=== PATIENT | female | born 2000 | race Hispanic/Latino ===

== ENCOUNTER 2024-07-12 06:51 | Emergency (ER) | payer OTHER, SELFPAY ==
--- OUTSIDE RECORDS SUMMARY | 2024-07-12 07:03 | XMS REPORT | Continuity of Care Document ---
Author Name Unknown Address [address] [facility] [address] [place] [address] [facility] thconnect Address [address] [facility] [place] [address] Care Team Providers Care Train Director Name Role Phone Colt Troy MD Primary Care Physician [phone] MARIN SINGLETON Attending Clinician Unavailable Marin Singleton DNP Attending Clinician [phone] Doctor Unassigned, [place] Attending Clinician U MIRIAM Esquivel Attending Clinician Unavailable ALEX WILSON Attending Clinician Unavailable Colt Troy MD Attending Clinician [phone] Meredith Moya RN Attending Clinician UnavailCOLT Dhaliwal Attending Clinician Unavailable Aelx Rojas Attending Clinician [phone] Lab, Ang - Db Attending Clinician Unavailable Unknown, Attending Attending Clinician UnavailFranca Doyle MD Attending Clinician [phone] ELLIOTT KARIMI Attending Clinician Unavailable Elliott Szymanski Attending Clinician [phone] Doctor Unassigned, [place] Attending Clinician U Juana Alex Attending Clinician [phone] WILLY DUNN Attending Clinician Unavailable Willy Dunn MD Attending Clinician [phone], [facility] Attending Clinician Unavailable SHIKHA KWONG Attending Clinician UnavailSHIKHA Toro Attending Clinician Unavaila miguel Ultrasound, Ang-Mfm Attending Clinician Unavaila miguel Desouzavelis MD, Lainez Attending Clinician + ENRRIQUE PABON Attending Clinician Unav ailable TRUDY LESLIE Attending Clinician Unavailable DANA SHIELDS Attending Clinician Unavailjustine Leslie MD, Trudy Willis Attending Clinician [phone] Quintin Stanley MD Attending Clinician [phone] QUINTIN STANLEY Attending Clinician Unavailable Marina Washington MD Attending Clinician [phone] Pob, [facility] Main Attending Clinician Unavailjustine hi Ultrasound, Adc Mfm Attending Clinician UnavailChristelle Bruce MD Attending Clinician [phone] CHRISTELLE MONDRAGON Attending Clinician Unavailable CHRISTELLE MONDRAGON Attending Clinician Unavailable Melody Alcantara Attending Clinician UnavailMichele Rowland MD Attending Clinician [phone] MICHELE GREER Attending Clinician Unavailable COLT TROY Admitting Clinician Unavailable Vincent PANIAGUA, Colt Suggs Admitting Clinician [phone] SHIKHA KWONG Admitting Clinician UnavailQuintin Rodriguez MD Admitting Clinician [phone] QUINTIN STANLEY Admitting Clinician Unavailable Payers Payer Name Policy Type Policy Number Effective Date Expirati on Date Source [facility] STAR [id number] 2023 00:00:00 [facility] [id number] 2022 00:00:00 2023 00:00:00 [facility] [id number] 2016 00:00:00 Problems Condition Name Condition Details Condition Category Status Onset Date Resolution Date Last Treatment Date Treating Clinician Comments Source Dizziness Dizziness Disease Active 03-29 00:00: 00 [facility] Axillary lymphadeni tis Axillary lymphadeni tis Disease Active 12-23 00:00: 00 [facility] with inconclusi ve viability, single or unspecifie d fetus with inconclusi ve viability, single or unspecifie d fetus Disease Active 2020-09 0 00:00: 00 [facility] Seasonal allergies Seasonal allergies Disease Active 2016-1 2-26 00:00: 00 [facility] related hip pain, antepartum related hip pain, antepartum Disease Resolve d 2022-0 7-12 00:00: 00 2023-10-30 00:00:00 2023-10-30 17:11:16 [facility] History of herpes genitalis History of herpes genitalis Disease Resolve d 2022-0 7-12 00:00: 00 2023-10-30 00:00:00 2023-10-30 17:11:18 [facility] History of delivery, currently History of delivery, currently Disease Resolve d 2022-0 5-17 00:00: 00 2023-10-30 00:00:00 2023-10-30 17:11:15 [facility] Liveborn , of simental , born in hospital by delivery Liveborn , of simental , born in hospital by delivery Disease Resolve d 2021-0 5-27 00:00: 00 2023-10-30 00:00:00 2023-10-30 17:11:13 [facility] 39 weeks gestation of 39 weeks gestation of Disease Resolve d 2021-0 3-27 00:00: 00 2023-10-30 00:00:00 2023-10-30 15:42:40 [facility] Alpha thalassemi a silent carrier Alpha thalassemi a silent carrier Disease Resolve d 1 2-09 00:00: 00 2023-10-30 00:00:00 2023-10-30 17:11:22 [facility] GBS bacteriuri a GBS bacteriuri a Disease Resolve d 1 2-09 00:00: 00 2023-10-30 00:00:00 2023-10-30 17:11:21 [facility] Supervisio n of other normal , antepartum Supervisio n of other normal , antepartum Disease Resolve d 1 0-17 00:00: 00 2023-10-30 00:00:00 2023-10-30 17:11:23 [facility] HSV infection HSV infection Disease Resolve d 2022-0 3-15 00:00: 00 2023-09-18 00:00:00 2023-09-18 15:51:29 [facility] 7 weeks gestation of 7 weeks gestation of Disease Resolve d 2022-0 5-17 00:00: 00 2023-07-22 00:00:00 2023-07-22 16:18:51 [facility] Vulvar itching Vulvar itching Disease Resolve d 2022-0 3-14 00:00: 00 2023-07-22 00:00:00 2023-07-22 16:18:59 [facility] Acute vaginitis Acute vaginitis Disease Resolve d 2022-0 3-14 00:00: 00 2023-07-22 00:00:00 2023-07-22 16:19:00 [facility] Acute blood loss anemia Acute blood loss anemia Disease Resolve d 2021-0 5-28 00:00: 00 2022-04-05 00:00:00 2022-04-05 13:31:42 [facility] Other immediate hemorrhage Other immediate hemorrhage Disease Resolve d 2021-0 5-28 00:00: 00 2022-04-05 00:00:00 2022-04-05 13:31:53 [facility] Normal labor Normal labor Disease Resolve d 2021-0 5-26 00:00: 00 2022-04-05 00:00:00 2022-04-05 13:31:37 [facility] Personal history of fall Personal history of fall Disease Resolve d 2021-0 4-23 00:00: 00 2022-04-05 00:00:00 2022-04-05 13:31:36 [facility] Nausea and vomiting in Nausea and vomiting in Disease Resolve d 2020-1 0-17 00:00: 00 2022-04-05 00:00:00 2022-04-05 13:31:46 [facility] Encounter to determine viability of , single or unspecifie d fetus Encounter to determine viability of , single or unspecifie d fetus Disease Resolve d 2020-1 0-17 00:00: 00 2021-10-29 00:00:00 2021-10-29 16:34:08 [facility] Allergies, Adverse Reactions, Alerts Allergy Name Allergy Type Status Severity Reaction(s) Onset Date Inactive Date Treating Clinician Comments Source NO KNOWN ALLERGIE S Drug Class Active [facility] Social History Social Habit Start Date Stop Date Quantity Comments Source ASSERTION 2023-01-07 00:00:00 [facility] Sexual orientation [facility] History SDOH Alcohol Comment [place] [facility] Alcoholic beverage intake 2024-05-17 00:00:00 2024-05-17 00:00:00 Ex-drinker (finding) [facility] Alcohol intake 2023-12-02 00:00:00 2023-12-02 00:00:00 Ex-drinker (finding) [facility] History of Social function 2023-09-08 00:00:00 2023-09-08 00:00:00 [facility] Exposure to SARS-CoV-2 (event) 2023-02-02 00:00:00 2023-02-12 11:17:00 Not sure [facility] Tobacco use and exposure 2022-12-10 00:00:00 2022-12-10 00:00:00 Smokeless tobacco non-user [facility] Education 2022-02-21 00:00:00 2022-02-21 00:00:00 16 [facility] History SDOH Alcohol Frequency 2020-09-07 00:00:00 2020-09-07 00:00:00 99 [facility] History SDOH Alcohol Std Drinks 2020-09-07 00:00:00 2020-09-07 00:00:00 99 [facility] History SDOH Alcohol Binge 2020-09-07 00:00:00 2020-09-07 00:00:00 3 [facility] Sex assigned at 1998 00:00:00 2000 00:00:00 [facility] Smoking Status Start Date Stop Date Source Never smoked tobacco [facility] Medications Ordered Medication Name Filled Medication Name Start Date Stop Date Current Medication? Ordering Clinician Indication Dosage Frequency Signature (SIG) Comments Components Source Nitrofurant oin&Nit. Macrocryst (MACROBID) 100 mg capsule 7-19 00:00: 00 04-22 04:59 :00 Yes [id number] 100mg Take 1 capsule by mouth in the morning and 1 capsule in the evening. Do all this for 5 days. [facility] meclizine 25 mg tablet 7- 00:00: 00 Yes [id number] 25mg Take 1 tablet by mouth 3 (three) times daily as needed for Dizziness. [facility] promethazin e-dextromet horphan 6.25-15 mg/5 mL syrup - 00:00: 00 01-03 04:59 :00 No [id number] 5mL Take 5 mL by mouth 4 (four) times daily for 10 days. [facility] predniSONE 20 mg tablet 12-23 00:00: 00 12-29 04:59 :00 No [id number] 40mg Take 2 tablets by mouth in the morning for 5 days. [facility] cefdinir 300 mg capsule 3- 00:00: 00 12-29 04:59 :00 No [id number] 600mg Take 2 capsules by mouth in the morning for 10 days. [facility] SERTraline (ZOLOFT) 50 mg tablet 3- 00:00: 00 Yes [id number] 50mg Take 1 tablet by mouth in the morning. [facility] norgestimat e-ethinyl estradioL 0.25-35 mg-mcg per tablet 2-15 00:00: 00 Yes [id number] 1{tbl} Take 1 tablet by mouth in the morning. [facility] SERTraline (ZOLOFT) 50 mg tablet 2-09 00:00: 00 12-01 00:00 :00 No [id number] 50mg Take 1 tablet by mouth in the morning. [facility] SERTraline (ZOLOFT) 25 mg tablet 2- 00:00: 00 11-07 05:59 :00 No [id number] 25mg Take 1 tablet by mouth in the morning for 7 days. [facility] vit no.124/iron /folic ( VITAMIN ORAL) 2022-09 07:27: 20 09-26 00:00 :00 No Take by mouth. [facility] acetaminoph en 325 mg tablet 2022-09 00:00: 00 11-13 00:00 :00 No [id number] 650mg Take 2 tablets by mouth every 6 (six) hours as needed for Pain (scale 1-3) or Pain (scale 4-6). [facility] vitamin w/FA tablet 2022-09 00:00: 00 11-13 00:00 :00 No [id number] 1{tbl} Take 1 tablet by mouth in the morning. [facility] docusate 100 mg capsule 2022-09 00:00: 00 11-13 00:00 :00 No [id number] 200mg Take 2 capsules by mouth once daily as needed for Constipati on. [facility] ferrous sulfate 325 mg (65 mg iron) tablet 2022-09 00:00: 00 11-13 00:00 :00 No [id number] 325mg Take 1 tablet by mouth in the morning and 1 tablet in the evening. [facility] ibuprofen 600 mg tablet 2022-09 00:00: 00 11-13 00:00 :00 No [id number] 600mg Take 1 tablet by mouth every 6 (six) hours as needed (Pain). Take with food or milk. [facility] HYDROcodone -acetaminop hen 5-325 mg tablet 2022-09 00:00: 00 10-04 05:59 :00 No [id number] 1{tbl} Take 1 tablet by mouth every 6 (six) hours as needed for Pain (scale 7-10) (Alternate with Ibuprofen) for up to 7 days. Indication s: acute pain [facility] gabapentin 300 mg capsule 2022-09 00:00: 00 10-02 05:59 :00 No [id number] 300mg Take 1 capsule by mouth in the morning and 1 capsule at noon and 1 capsule in the evening. Do all this for 5 days. [facility] ibuprofen (IBU) tablet 600 mg 2022-09 18:45: 00 Yes 600mg 600 mg, Oral, Q6H, First dose (after last modificati on) on Fri09/25/23 at 1245, Until Discontinu ed, Routine [facility] HYDROcodone -acetaminop hen (NORCO 5) 5-325 mg tablet 1 tablet 2022-09 06:00: 00 Yes 1{tbl} 1 tablet, Oral, Q6HPRN, Starting on Fri09/25/23 at 0000, Until Discontinu ed, Routine, Pain (scale 7-10), Alternate with Ibuprofen [facility] ketorolac (TORADOL) injection 30 mg 2022-09 06:00: 00 09-25 18:29 :05 No 30mg 30 mg, Slow IV Push, Q6H ABX, 4 doses, First dose on Fri09/25/23 at 0000, Last dose on Fri09/25/23 at 1800, Routine [facility] acetaminoph en (TYLENOL) tablet 650 mg 2022-09 02:00: 00 Yes 650mg 650 mg, Oral, Q6H ABX, First dose (after last modificati on) on Fri09/24/23 at 2000, Until Discontinu ed, Routine [facility] gabapentin (NEURONTIN) capsule 300 mg 2022-09 20:00: 00 Yes 300mg 300 mg, Oral, TID, First dose on Fri09/24/23 at 1400, Until Discontinu ed, Routine [facility] acetaminoph en ADULT (OFIRMEV) injection 1,000 mg 2022-09 20:00: 00 09-24 20:23 :00 No 1000mg 1,000 mg, IV Infusion, at 400 mL/hr Administer over 15 Minutes, ONCE, 1 dose, On Fri09/24/23 at 1400, Routine
Indicatio n: Strict NPO and unable to tolerate oral medication s [facility] lactated ringers IV infusion 1,000 mL 2022-09 17:30: 00 09-24 18:30 :00 No 1000mL at 125 mL/hr, 1,000 mL, IV Infusion, ONCE, 1 dose, On Fri09/24/23 at 1130, Routine [facility] rho(D) immune globulin (RHOGAM) syringe 300 mcg 2022-09 17:15: 16 Yes 300ug 300 mcg, Intramuscu lar, ONCE, For 1 dose, Conditiona l, Routine [facility] HYDROcodone -acetaminop hen (NORCO 5) 5-325 mg tablet 1 tablet 2022-09 17:15: 11 Yes 1{tbl} 1 tablet, Oral, Q6HPRN, Starting on Fri09/24/23 at 1115, Until Discontinu ed, Routine, Pain (scale 4-6), Alternate with Ibuprofen [facility] diphenhydrA MINE (BENADRYL) injection 25 mg 2022-09 17:15: 11 Yes 25mg 25 mg, Slow IV Push, Q6HPRN, Starting on Fri09/24/23 at 1115, Until Discontinu ed, Routine, Itching [facility] diphenhydrA MINE (BENADRYL) tablet 25 mg 2022-09 17:15: 11 Yes 25mg 25 mg, Oral, Q6HPRN, Starting on Fri09/24/23 at 1115, Until Discontinu ed, Routine, Sleep, Itching [facility] ondansetron (ZOFRAN (PF)) injection 4 mg 2022-09 17:15: 11 Yes 4mg 4 mg, Slow IV Push, Q8HPRN, Starting on Fri09/24/23 at 1115, Until Discontinu ed, Routine, Nausea and Vomiting (N/V) [facility] bisacodyL (DULCOLAX) suppository 10 mg 2022-09 17:15: 11 Yes 10mg 10 mg, Rectal, QDAILYPRN, Starting on Fri09/24/23 at 1115, Until Discontinu ed, Routine, Constipati on [facility] simethicone (GAS RELIEF (SIMETHICON E)) chewable tablet 160 mg 2022-09 17:15: 11 Yes 160mg 160 mg, Oral, PC+HSPRN, Starting on Fri09/24/23 at 1115, Until Discontinu ed, Routine, Gas [facility] docusate (COLACE) capsule 200 mg 2022-09 17:15: 11 Yes 200mg 200 mg, Oral, QDAILYPRN, Starting on Fri09/24/23 at 1115, Until Discontinu ed, Routine, Constipati on [facility] magnesium hydroxide (MILK OF MAGNESIA) 400 mg/5 mL suspension 30 mL 2022-09 17:15: 11 Yes 30mL 30 mL, Oral, QDAILYPRN, Starting on Fri09/24/23 at 1115, Until Discontinu ed, Routine, Constipati on [facility] lactated ringers IV infusion 1,000 mL 2022-09 17:15: 10 Yes 1000mL at 125 mL/hr, 1,000 mL, IV Infusion, PRN, 1 dose, Starting on Fri09/24/23 at 1115, Until Discontinu ed, Routine [facility] sodium chloride 0.9 % irrigation solution 2022-09 15:01: 00 Yes PRN, Starting on Fri09/24/23 at 0901, Until Discontinu ed, Intra-op [facility] mupirocin (BACTROBAN OINT) 2 % skin ointment 2022-09 15:01: 00 Yes Intra-op [facility] naloxone (NARCAN) injection 0.4 mg 2022-09 13:47: 32 09-26 13:46 :32 No .4mg 0.4 mg, Slow IV Push, PRN - SEE INSTRUCTIO NS, Starting on Fri09/24/23 at 0747, Until Fri09/26/23 at 0746, Routine, Sedation/R espiratory Depression , [facility] oxytocin (PITOCIN) 30 units in NS 500 mL IV infusion 2022-09 13:23: 18 09-24 17:15 :15 No 300mL/h 300 mL/hr, IV Infusion, SEE-INSTRU CTIONS, Starting on Fri09/24/[address] at 300 mL/hr for 1 hr then 150 mL/hr for 1 hr. For post delivery uterotonic .
[facility] sodium citrate-cit viki acid (BICITRA) 500-334 mg/5 mL solution 30 mL 2022-09 11:14: 28 09-24 12:51 :00 No 30mL 30 mL, Oral, PRE-PROCED URE ONCE, 1 dose, Starting on Fri09/24/23 at 0514, Until Discontinu ed, Routine, Surgery/Pr ocedure [facility] D5W-LR IV infusion 1,000 mL 2022-09 11:14: 28 09-24 17:15 :15 No 1000mL at 1-125 mL/hr, IV Infusion, TITRATE, Starting on Fri09/24/23 at 0514, Until Fri09/24/23 at 1115, Routine [facility] vit no.124/iron /folic ( VITAMIN ORAL) 2022-09 07:26: 27 Yes Take by mouth. [facility] acyclovir 400 mg tablet 2022-09 00:00: 00 09-24 05:59 :00 No [id number] 400mg Take 1 tablet by mouth in the morning and 1 tablet at noon and 1 tablet in the evening. Do all this for 22 days. [facility] hydrOXYzine 25 mg tablet 2022-09 00:00: 00 09-26 00:00 :00 No [id number] 25mg Take 1 tablet by mouth at bedtime as needed for Itching. [facility] vit no.124/iron /folic ( VITAMIN ORAL) 12 10:40: 23 Yes Take by mouth. [facility] vit no.124/iron /folic ( VITAMIN ORAL) 8-14 16:05: 50 Yes Take by mouth. [facility] ondansetron 8 mg disintegrat ing tablet 03-12 00:00: 00 09-26 00:00 :00 No [id number] 8mg Take 1 tablet by mouth every 8 (eight) hours as needed for Nausea and Vomiting (N/V). [facility] vit no.124/iron /folic ( VITAMIN ORAL) 02-12 11:45: 12 Yes Take by mouth. [facility] terconazole 80 mg vaginal suppository 12-10 00:00: 00 07-22 00:00 :00 No [id number] 80mg Insert 1 Suppositor y into vagina at bedtime. [facility] acyclovir 400 mg tablet 11-27 00:00: 00 09-18 00:00 :00 No TAKE 1 TABLET BY MOUTH EVERY 8 HOURS WITH MEALS [facility] norgestimat e-ethinyl estradioL 0.25-35 mg-mcg per tablet 04-05 00:00: 00 02-12 00:00 :00 No [id number] 1{tbl} Take 1 tablet by mouth daily. [facility] PNV 102-iron-fo late-dha (VITAFOL FE PLUS) 90 mg iron- 1 mg-200 mg Cap 02-27 00:00: 00 Yes [id number] 1{tbl} Take 1 tablet by mouth daily. [facility] PNV 102-iron-fo late-dha (VITAFOL FE PLUS) 90 mg iron- 1 mg-200 mg Cap 02-27 00:00: 00 07-22 00:00 :00 No [id number] 1{tbl} Take 1 tablet by mouth daily. [facility] Immunizations Ordered Immunization Name Filled Immunization Name Date Status Comments Source TDAP 2021-12-10 00:00:00 Completed [facility] TDAP 2021-12-10 00:00:00 Completed [facility] TDAP 2021-12-10 00:00:00 Completed [facility] TDAP 2021-12-10 00:00:00 Completed [facility] TDAP 2021-12-10 00:00:00 Completed [facility] TDAP 2021-12-10 00:00:00 Completed [facility] TDAP 2021-12-10 00:00:00 Completed [facility] TDAP 2021-12-10 00:00:00 Completed [facility] TDAP 2021-12-10 00:00:00 Completed [facility] TDAP 2021-12-10 00:00:00 Completed [facility] TDAP 2021-12-10 00:00:00 Completed [facility] TDAP 2021-12-10 00:00:00 Completed [facility] TDAP 2021-12-10 00:00:00 Completed [facility] TDAP 2021-12-10 00:00:00 Completed [facility] TDAP 2021-12-10 00:00:00 Completed [facility] TDAP 2021-12-10 00:00:00 Completed [facility] TDAP 2021-12-10 00:00:00 Completed [facility] TDAP 2021-12-10 00:00:00 Completed [facility] TDAP 2021-12-10 00:00:00 Completed [facility] TDAP 2021-12-10 00:00:00 Completed [facility] SARS-COV-2 COVID-19 MODERNA VACCINE 2021-08-29 00:00:00 Completed [facility] SARS-COV-2 COVID-19 MODERNA 12+ YRS VACCINE 2021-08-29 00:00:00 Completed [facility] SARS-COV-2 COVID-19 MODERNA 12+ YRS VACCINE 2021-08-29 00:00:00 Completed [facility] SARS-COV-2 COVID-19 MODERNA 12+ YRS VACCINE 2021-08-29 00:00:00 Completed [facility] SARS-COV-2 COVID-19 MODERNA 12+ YRS VACCINE 2021-08-29 00:00:00 Completed [facility] SARS-COV-2 COVID-19 MODERNA 12+ YRS VACCINE 2021-08-29 00:00:00 Completed [facility] SARS-COV-2 COVID-19 MODERNA 12+ YRS VACCINE 2021-08-29 00:00:00 Completed [facility] SARS-COV-2 COVID-19 MODERNA 12+ YRS VACCINE 2021-08-29 00:00:00 Completed [facility] SARS-COV-2 COVID-19 MODERNA 12+ YRS VACCINE 2021-08-29 00:00:00 Completed [facility] SARS-COV-2 COVID-19 MODERNA 12+ YRS VACCINE 2021-08-29 00:00:00 Completed [facility] SARS-COV-2 COVID-19 MODERNA 12+ YRS VACCINE 2021-08-29 00:00:00 Completed [facility] SARS-COV-2 COVID-19 MODERNA 12+ YRS VACCINE 2021-08-29 00:00:00 Completed [facility] SARS-COV-2 COVID-19 MODERNA 12+ YRS VACCINE 2021-08-29 00:00:00 Completed [facility] SARS-COV-2 COVID-19 MODERNA 12+ YRS VACCINE 2021-08-29 00:00:00 Completed [facility] SARS-COV-2 COVID-19 MODERNA 12+ YRS VACCINE 2021-08-29 00:00:00 Completed [facility] SARS-COV-2 COVID-19 MODERNA 12+ YRS VACCINE 2021-08-29 00:00:00 Completed [facility] SARS-COV-2 COVID-19 MODERNA 12+ YRS VACCINE 2021-08-29 00:00:00 Completed [facility] SARS-COV-2 COVID-19 MODERNA 12+ YRS VACCINE 2021-08-29 00:00:00 Completed [facility] SARS-COV-2 COVID-19 MODERNA 12+ YRS VACCINE 2021-08-29 00:00:00 Completed [facility] SARS-COV-2 COVID-19 MODERNA 12+ YRS VACCINE 2021-08-29 00:00:00 Completed [facility] SARS-COV-2 COVID-19 MODERNA VACCINE 2021-07-28 00:00:00 Completed [facility] SARS-COV-2 COVID-19 MODERNA 12+ YRS VACCINE 2021-07-28 00:00:00 Completed [facility] SARS-COV-2 COVID-19 MODERNA 12+ YRS VACCINE 2021-07-28 00:00:00 Completed [facility] SARS-COV-2 COVID-19 MODERNA 12+ YRS VACCINE 2021-07-28 00:00:00 Completed [facility] SARS-COV-2 COVID-19 MODERNA 12+ YRS VACCINE 2021-07-28 00:00:00 Completed [facility] SARS-COV-2 COVID-19 MODERNA 12+ YRS VACCINE 2021-07-28 00:00:00 Completed [facility] SARS-COV-2 COVID-19 MODERNA 12+ YRS VACCINE 2021-07-28 00:00:00 Completed [facility] SARS-COV-2 COVID-19 MODERNA 12+ YRS VACCINE 2021-07-28 00:00:00 Completed [facility] SARS-COV-2 COVID-19 MODERNA 12+ YRS VACCINE 2021-07-28 00:00:00 Completed [facility] SARS-COV-2 COVID-19 MODERNA 12+ YRS VACCINE 2021-07-28 00:00:00 Completed [facility] SARS-COV-2 COVID-19 MODERNA 12+ YRS VACCINE 2021-07-28 00:00:00 Completed [facility] SARS-COV-2 COVID-19 MODERNA 12+ YRS VACCINE 2021-07-28 00:00:00 Completed [facility] SARS-COV-2 COVID-19 MODERNA 12+ YRS VACCINE 2021-07-28 00:00:00 Completed [facility] SARS-COV-2 COVID-19 MODERNA 12+ YRS VACCINE 2021-07-28 00:00:00 Completed [facility] SARS-COV-2 COVID-19 MODERNA 12+ YRS VACCINE 2021-07-28 00:00:00 Completed [facility] SARS-COV-2 COVID-19 MODERNA 12+ YRS VACCINE 2021-07-28 00:00:00 Completed [facility] SARS-COV-2 COVID-19 MODERNA 12+ YRS VACCINE 2021-07-28 00:00:00 Completed [facility] SARS-COV-2 COVID-19 MODERNA 12+ YRS VACCINE 2021-07-28 00:00:00 Completed [facility] SARS-COV-2 COVID-19 MODERNA 12+ YRS VACCINE 2021-07-28 00:00:00 Completed [facility] SARS-COV-2 COVID-19 MODERNA 12+ YRS VACCINE 2021-07-28 00:00:00 Completed [facility] Influenza Virus Vaccine Quad IM 3+ YRS 2017-07-15 00:00:00 Completed [facility] Influenza Virus Vaccine Quad IM 3+ YRS 2017-07-15 00:00:00 Completed [facility] Influenza Virus Vaccine Quad IM 3+ YRS 2017-07-15 00:00:00 Completed [facility] Influenza Virus Vaccine Quad IM 3+ YRS 2017-07-15 00:00:00 Completed [facility] Influenza Virus Vaccine Quad IM 3+ YRS 2017-07-15 00:00:00 Completed [facility] Influenza Virus Vaccine Quad IM 3+ YRS 2017-07-15 00:00:00 Completed [facility] Influenza Virus Vaccine Quad IM 3+ YRS 2017-07-15 00:00:00 Completed [facility] Influenza Virus Vaccine Quad IM 3+ YRS 2017-07-15 00:00:00 Completed [facility] Influenza Virus Vaccine Quad IM 3+ YRS 2017-07-15 00:00:00 Completed [facility] Influenza Virus Vaccine Quad IM 3+ YRS 2017-07-15 00:00:00 Completed [facility] Influenza Virus Vaccine Quad IM 3+ YRS 2017-07-15 00:00:00 Completed [facility] Influenza Virus Vaccine Quad IM 3+ YRS 2017-07-15 00:00:00 Completed [facility] Influenza Virus Vaccine Quad IM 3+ YRS 2017-07-15 00:00:00 Completed [facility] Influenza Virus Vaccine Quad IM 3+ YRS 2017-07-15 00:00:00 Completed [facility] Influenza Virus Vaccine Quad IM 3+ YRS 2017-07-15 00:00:00 Completed [facility] Influenza Virus Vaccine Quad IM 3+ YRS 2017-07-15 00:00:00 Completed [facility] Influenza Virus Vaccine Quad IM 3+ YRS 2017-07-15 00:00:00 Completed [facility] Influenza Virus Vaccine Quad IM 3+ YRS 2017-07-15 00:00:00 Completed [facility] Influenza Virus Vaccine Quad IM 3+ YRS 2017-07-15 00:00:00 Completed [facility] Influenza Virus Vaccine Quad IM 3+ YRS 2017-07-15 00:00:00 Completed [facility] Meningococcal B, OMV 2016-10-21 00:00:00 Completed [facility] Meningococcal B, OMV 2016-10-21 00:00:00 Completed [facility] Meningococcal B, Recombinant 2016-10-21 00:00:00 Completed [facility] Meningococcal B, OMV 2016-10-21 00:00:00 Completed [facility] Meningococcal B, Recombinant 2016-10-21 00:00:00 Completed [facility] Meningococcal B, OMV 2016-10-21 00:00:00 Completed [facility] Meningococcal B, Recombinant 2016-10-21 00:00:00 Completed [facility] Meningococcal B, OMV 2016-10-21 00:00:00 Completed [facility] Meningococcal B, Recombinant 2016-10-21 00:00:00 Completed [facility] Meningococcal B, OMV 2016-10-21 00:00:00 Completed [facility] Meningococcal B, Recombinant 2016-10-21 00:00:00 Completed [facility] Meningococcal B, OMV 2016-10-21 00:00:00 Completed [facility] Meningococcal B, Recombinant 2016-10-21 00:00:00 Completed [facility] Meningococcal B, OMV 2016-10-21 00:00:00 Completed [facility] Meningococcal B, Recombinant 2016-10-21 00:00:00 Completed [facility] Meningococcal B, OMV 2016-10-21 00:00:00 Completed [facility] Meningococcal B, Recombinant 2016-10-21 00:00:00 Completed [facility] Meningococcal B, OMV 2016-10-21 00:00:00 Completed [facility] Meningococcal B, Recombinant 2016-10-21 00:00:00 Completed [facility] Meningococcal B, OMV 2016-10-21 00:00:00 Completed [facility] Meningococcal B, Recombinant 2016-10-21 00:00:00 Completed [facility] Meningococcal B, OMV 2016-10-21 00:00:00 Completed [facility] Meningococcal B, Recombinant 2016-10-21 00:00:00 Completed [facility] Meningococcal B, OMV 2016-10-21 00:00:00 Completed [facility] Meningococcal B, Recombinant 2016-10-21 00:00:00 Completed [facility] Meningococcal B, OMV 2016-10-21 00:00:00 Completed [facility] Meningococcal B, Recombinant 2016-10-21 00:00:00 Completed [facility] Meningococcal B, OMV 2016-10-21 00:00:00 Completed [facility] Meningococcal B, Recombinant 2016-10-21 00:00:00 Completed [facility] Meningococcal B, OMV 2016-10-21 00:00:00 Completed [facility] Meningococcal B, Recombinant 2016-10-21 00:00:00 Completed [facility] Meningococcal B, OMV 2016-10-21 00:00:00 Completed [facility] Meningococcal B, Recombinant 2016-10-21 00:00:00 Completed [facility] Meningococcal B, OMV 2016-10-21 00:00:00 Completed [facility] Meningococcal B, Recombinant 2016-10-21 00:00:00 Completed [facility] Meningococcal B, OMV 2016-10-21 00:00:00 Completed [facility] Meningococcal B, Recombinant 2016-10-21 00:00:00 Completed [facility] Meningococcal B, OMV 2016-10-21 00:00:00 Completed [facility] Meningococcal B, Recombinant 2016-10-21 00:00:00 Completed [facility] Influenza Virus Vaccine Quad IM 3+ YRS 2016-09-20 00:00:00 Completed [facility] Meningococcal B, OMV 2016-09-20 00:00:00 Completed [facility] Influenza Virus Vaccine Quad IM 3+ YRS 2016-09-20 00:00:00 Completed [facility] Meningococcal B, OMV 2016-09-20 00:00:00 Completed [facility] Meningococcal B, Recombinant 2016-09-20 00:00:00 Completed [facility] Influenza Virus Vaccine Quad IM 3+ YRS 2016-09-20 00:00:00 Completed [facility] Meningococcal B, OMV 2016-09-20 00:00:00 Completed [facility] Meningococcal B, Recombinant 2016-09-20 00:00:00 Completed [facility] Influenza Virus Vaccine Quad IM 3+ YRS 2016-09-20 00:00:00 Completed [facility] Meningococcal B, OMV 2016-09-20 00:00:00 Completed [facility] Meningococcal B, Recombinant 2016-09-20 00:00:00 Completed [facility] Influenza Virus Vaccine Quad IM 3+ YRS 2016-09-20 00:00:00 Completed [facility] Meningococcal B, OMV 2016-09-20 00:00:00 Completed [facility] Meningococcal B, Recombinant 2016-09-20 00:00:00 Completed [facility] Influenza Virus Vaccine Quad IM 3+ YRS 2016-09-20 00:00:00 Completed [facility] Meningococcal B, OMV 2016-09-20 00:00:00 Completed [facility] Meningococcal B, Recombinant 2016-09-20 00:00:00 Completed [facility] Influenza Virus Vaccine Quad IM 3+ YRS 2016-09-20 00:00:00 Completed [facility] Meningococcal B, OMV 2016-09-20 00:00:00 Completed [facility] Meningococcal B, Recombinant 2016-09-20 00:00:00 Completed [facility] Influenza Virus Vaccine Quad IM 3+ YRS 2016-09-20 00:00:00 Completed [facility] Meningococcal B, OMV 2016-09-20 00:00:00 Completed [facility] Meningococcal B, Recombinant 2016-09-20 00:00:00 Completed [facility] Influenza Virus Vaccine Quad IM 3+ YRS 2016-09-20 00:00:00 Completed [facility] Meningococcal B, OMV 2016-09-20 00:00:00 Completed [facility] Meningococcal B, Recombinant 2016-09-20 00:00:00 Completed [facility] Influenza Virus Vaccine Quad IM 3+ YRS 2016-09-20 00:00:00 Completed [facility] Meningococcal B, OMV 2016-09-20 00:00:00 Completed [facility] Meningococcal B, Recombinant 2016-09-20 00:00:00 Completed [facility] Influenza Virus Vaccine Quad IM 3+ YRS 2016-09-20 00:00:00 Completed [facility] Meningococcal B, OMV 2016-09-20 00:00:00 Completed [facility] Meningococcal B, Recombinant 2016-09-20 00:00:00 Completed [facility] Influenza Virus Vaccine Quad IM 3+ YRS 2016-09-20 00:00:00 Completed [facility] Meningococcal B, OMV 2016-09-20 00:00:00 Completed [facility] Meningococcal B, Recombinant 2016-09-20 00:00:00 Completed [facility] Influenza Virus Vaccine Quad IM 3+ YRS 2016-09-20 00:00:00 Completed [facility] Meningococcal B, OMV 2016-09-20 00:00:00 Completed [facility] Meningococcal B, Recombinant 2016-09-20 00:00:00 Completed [facility] Influenza Virus Vaccine Quad IM 3+ YRS 2016-09-20 00:00:00 Completed [facility] Meningococcal B, OMV 2016-09-20 00:00:00 Completed [facility] Meningococcal B, Recombinant 2016-09-20 00:00:00 Completed [facility] Influenza Virus Vaccine Quad IM 3+ YRS 2016-09-20 00:00:00 Completed [facility] Meningococcal B, OMV 2016-09-20 00:00:00 Completed [facility] Meningococcal B, Recombinant 2016-09-20 00:00:00 Completed [facility] Influenza Virus Vaccine Quad IM 3+ YRS 2016-09-20 00:00:00 Completed [facility] Meningococcal B, OMV 2016-09-20 00:00:00 Completed [facility] Meningococcal B, Recombinant 2016-09-20 00:00:00 Completed [facility] Influenza Virus Vaccine Quad IM 3+ YRS 2016-09-20 00:00:00 Completed [facility] Meningococcal B, OMV 2016-09-20 00:00:00 Completed [facility] Meningococcal B, Recombinant 2016-09-20 00:00:00 Completed [facility] Influenza Virus Vaccine Quad IM 3+ YRS 2016-09-20 00:00:00 Completed [facility] Meningococcal B, OMV 2016-09-20 00:00:00 Completed [facility] Meningococcal B, Recombinant 2016-09-20 00:00:00 Completed [facility] Influenza Virus Vaccine Quad IM 3+ YRS 2016-09-20 00:00:00 Completed [facility] Meningococcal B, OMV 2016-09-20 00:00:00 Completed [facility] Meningococcal B, Recombinant 2016-09-20 00:00:00 Completed [facility] Influenza Virus Vaccine Quad IM 3+ YRS 2016-09-20 00:00:00 Completed [facility] Meningococcal B, OMV 2016-09-20 00:00:00 Completed [facility] Meningococcal B, Recombinant 2016-09-20 00:00:00 Completed [facility] Influenza Virus Vaccine Quad IM 3+ YRS 2015-07-04 00:00:00 Completed [facility] Influenza Virus Vaccine Quad IM 3+ YRS 2015-07-04 00:00:00 Completed [facility] Influenza Virus Vaccine Quad IM 3+ YRS 2015-07-04 00:00:00 Completed [facility] Influenza Virus Vaccine Quad IM 3+ YRS 2015-07-04 00:00:00 Completed [facility] Influenza Virus Vaccine Quad IM 3+ YRS 2015-07-04 00:00:00 Completed [facility] Influenza Virus Vaccine Quad IM 3+ YRS 2015-07-04 00:00:00 Completed [facility] Influenza Virus Vaccine Quad IM 3+ YRS 2015-07-04 00:00:00 Completed [facility] Influenza Virus Vaccine Quad IM 3+ YRS 2015-07-04 00:00:00 Completed [facility] Influenza Virus Vaccine Quad IM 3+ YRS 2015-07-04 00:00:00 Completed [facility] Influenza Virus Vaccine Quad IM 3+ YRS 2015-07-04 00:00:00 Completed [facility] Influenza Virus Vaccine Quad IM 3+ YRS 2015-07-04 00:00:00 Completed [facility] Influenza Virus Vaccine Quad IM 3+ YRS 2015-07-04 00:00:00 Completed [facility] Influenza Virus Vaccine Quad IM 3+ YRS 2015-07-04 00:00:00 Completed [facility] Influenza Virus Vaccine Quad IM 3+ YRS 2015-07-04 00:00:00 Completed [facility] Influenza Virus Vaccine Quad IM 3+ YRS 2015-07-04 00:00:00 Completed [facility] Influenza Virus Vaccine Quad IM 3+ YRS 2015-07-04 00:00:00 Completed [facility] Influenza Virus Vaccine Quad IM 3+ YRS 2015-07-04 00:00:00 Completed [facility] Influenza Virus Vaccine Quad IM 3+ YRS 2015-07-04 00:00:00 Completed [facility] Influenza Virus Vaccine Quad IM 3+ YRS 2015-07-04 00:00:00 Completed [facility] Influenza Virus Vaccine Quad IM 3+ YRS 2015-07-04 00:00:00 Completed [facility] Influenza Virus Vaccine Quad .5 mL IM 6+ MO 2013-08-25 00:00:00 Completed [facility] Influenza Virus Vaccine Quad .5 mL IM 6+ MO 2013-08-25 00:00:00 Completed [facility] Influenza Virus Vaccine Quad .5 mL IM 6+ MO 2013-08-25 00:00:00 Completed [facility] Influenza Virus Vaccine Quad .5 mL IM 6+ MO 2013-08-25 00:00:00 Completed [facility] Influenza Virus Vaccine Quad .5 mL IM 6+ MO 2013-08-25 00:00:00 Completed [facility] Influenza Virus Vaccine Quad .5 mL IM 6+ MO 2013-08-25 00:00:00 Completed [facility] Influenza Virus Vaccine Quad .5 mL IM 6+ MO 2013-08-25 00:00:00 Completed [facility] Influenza Virus Vaccine Quad .5 mL IM 6+ MO 2013-08-25 00:00:00 Completed [facility] Influenza Virus Vaccine Quad .5 mL IM 6+ MO (FLUZONE/FLULAVAL/FL UARIX) 2013-08-25 00:00:00 Completed [facility] Influenza Virus Vaccine Quad .5 mL IM 6+ MO (FLUZONE/FLULAVAL/FL UARIX) 2013-08-25 00:00:00 Completed [facility] HEPATITIS A 2012-12-11 00:00:00 Completed [facility] HEPATITIS A 2012-12-11 00:00:00 Completed [facility] HEPATITIS A 2012-12-11 00:00:00 Completed [facility] HEPATITIS A 2012-12-11 00:00:00 Completed [facility] HEPATITIS A 2012-12-11 00:00:00 Completed [facility] HEPATITIS A 2012-12-11 00:00:00 Completed [facility] HEPATITIS A 2012-12-11 00:00:00 Completed [facility] HEPATITIS A 2012-12-11 00:00:00 Completed [facility] HEPATITIS A 2012-12-11 00:00:00 Completed [facility] HEPATITIS A 2012-12-11 00:00:00 Completed [facility] HEPATITIS A 2012-12-11 00:00:00 Completed [facility] HEPATITIS A 2012-12-11 00:00:00 Completed [facility] HEPATITIS A 2012-12-11 00:00:00 Completed [facility] HEPATITIS A 2012-12-11 00:00:00 Completed [facility] HEPATITIS A 2012-12-11 00:00:00 Completed [facility] HEPATITIS A 2012-12-11 00:00:00 Completed [facility] HEPATITIS A 2012-12-11 00:00:00 Completed [facility] HEPATITIS A 2012-12-11 00:00:00 Completed [facility] HEPATITIS A 2012-12-11 00:00:00 Completed [facility] Influenza Virus Vaccine - Whole 2012-08-19 00:00:00 Completed [facility] Influenza Virus Vaccine - Whole 2012-08-19 00:00:00 Completed [facility] Influenza Virus Vaccine - Whole 2012-08-19 00:00:00 Completed [facility] Influenza Virus Vaccine - Whole 2012-08-19 00:00:00 Completed [facility] Influenza Virus Vaccine - Whole 2012-08-19 00:00:00 Completed [facility] Influenza Virus Vaccine - Whole 2012-08-19 00:00:00 Completed [facility] Influenza Virus Vaccine - Whole 2012-08-19 00:00:00 Completed [facility] Influenza Virus Vaccine - Whole 2012-08-19 00:00:00 Completed [facility] Influenza Virus Vaccine - Whole 2012-08-19 00:00:00 Completed [facility] Influenza Virus Vaccine - Whole 2012-08-19 00:00:00 Completed [facility] HEPATITIS A 2012-05-22 00:00:00 Completed [facility] HEPATITIS A 2012-05-22 00:00:00 Completed [facility] HEPATITIS A 2012-05-22 00:00:00 Completed [facility] HEPATITIS A 2012-05-22 00:00:00 Completed [facility] HEPATITIS A 2012-05-22 00:00:00 Completed [facility] HEPATITIS A 2012-05-22 00:00:00 Completed [facility] HEPATITIS A 2012-05-22 00:00:00 Completed [facility] HEPATITIS A 2012-05-22 00:00:00 Completed [facility] HEPATITIS A 2012-05-22 00:00:00 Completed [facility] HEPATITIS A 2012-05-22 00:00:00 Completed [facility] HEPATITIS A 2012-05-22 00:00:00 Completed [facility] HEPATITIS A 2012-05-22 00:00:00 Completed [facility] HEPATITIS A 2012-05-22 00:00:00 Completed [facility] HEPATITIS A 2012-05-22 00:00:00 Completed [facility] HEPATITIS A 2012-05-22 00:00:00 Completed [facility] HEPATITIS A 2012-05-22 00:00:00 Completed [facility] HEPATITIS A 2012-05-22 00:00:00 Completed [facility] HEPATITIS A 2012-05-22 00:00:00 Completed [facility] HEPATITIS A 2012-05-22 00:00:00 Completed [facility] Influenza Virus Vaccine - Whole 2011-08-07 00:00:00 Completed [facility] Influenza Virus Vaccine - Whole 2011-08-07 00:00:00 Completed [facility] Influenza Virus Vaccine - Whole 2011-08-07 00:00:00 Completed [facility] Influenza Virus Vaccine - Whole 2011-08-07 00:00:00 Completed [facility] Influenza Virus Vaccine - Whole 2011-08-07 00:00:00 Completed [facility] Influenza Virus Vaccine - Whole 2011-08-07 00:00:00 Completed [facility] Influenza Virus Vaccine - Whole 2011-08-07 00:00:00 Completed [facility] Influenza Virus Vaccine - Whole 2011-08-07 00:00:00 Completed [facility] Influenza Virus Vaccine - Whole 2011-08-07 00:00:00 Completed [facility] Influenza Virus Vaccine - Whole 2011-08-07 00:00:00 Completed [facility] HPV 2011-05-14 00:00:00 Completed [facility] HPV 2011-05-14 00:00:00 Completed [facility] HPV 2011-05-14 00:00:00 Completed [facility] HPV 2011-05-14 00:00:00 Completed [facility] HPV 2011-05-14 00:00:00 Completed [facility] HPV 2011-05-14 00:00:00 Completed [facility] HPV 2011-05-14 00:00:00 Completed [facility] HPV 2011-05-14 00:00:00 Completed [facility] HPV 2011-05-14 00:00:00 Completed [facility] HPV 2011-05-14 00:00:00 Completed [facility] HPV 2011-05-14 00:00:00 Completed [facility] HPV 2011-05-14 00:00:00 Completed [facility] HPV 2011-05-14 00:00:00 Completed [facility] HPV 2011-05-14 00:00:00 Completed [facility] HPV 2011-05-14 00:00:00 Completed [facility] HPV 2011-05-14 00:00:00 Completed [facility] HPV 2011-05-14 00:00:00 Completed [facility] HPV 2011-05-14 00:00:00 Completed [facility] HPV 2011-05-14 00:00:00 Completed [facility] Influenza Virus Vaccine - Whole 2010-08-13 00:00:00 Completed [facility] Influenza Virus Vaccine - Whole 2010-08-13 00:00:00 Completed [facility] Influenza Virus Vaccine - Whole 2010-08-13 00:00:00 Completed [facility] Influenza Virus Vaccine - Whole 2010-08-13 00:00:00 Completed [facility] Influenza Virus Vaccine - Whole 2010-08-13 00:00:00 Completed [facility] Influenza Virus Vaccine - Whole 2010-08-13 00:00:00 Completed [facility] Influenza Virus Vaccine - Whole 2010-08-13 00:00:00 Completed [facility] Influenza Virus Vaccine - Whole 2010-08-13 00:00:00 Completed [facility] Influenza Virus Vaccine - Whole 2010-08-13 00:00:00 Completed [facility] Influenza Virus Vaccine - Whole 2010-08-13 00:00:00 Completed [facility] TDAP 2010-04-19 00:00:00 Completed [facility] Varicella (varivax)(chicken pox) 2010-04-19 00:00:00 Completed [facility] TDAP 2010-04-19 00:00:00 Completed [facility] Varicella (varivax)(chicken pox) 2010-04-19 00:00:00 Completed [facility] TDAP 2010-04-19 00:00:00 Completed [facility] Varicella (varivax)(chicken pox) 2010-04-19 00:00:00 Completed [facility] TDAP 2010-04-19 00:00:00 Completed [facility] Varicella (varivax)(chicken pox) 2010-04-19 00:00:00 Completed [facility] TDAP 2010-04-19 00:00:00 Completed [facility] Varicella (varivax)(chicken pox) 2010-04-19 00:00:00 Completed [facility] TDAP 2010-04-19 00:00:00 Completed [facility] Varicella (varivax)(chicken pox) 2010-04-19 00:00:00 Completed [facility] TDAP 2010-04-19 00:00:00 Completed [facility] Varicella (varivax)(chicken pox) 2010-04-19 00:00:00 Completed [facility] TDAP 2010-04-19 00:00:00 Completed [facility] Varicella (varivax)(chicken pox) 2010-04-19 00:00:00 Completed [facility] TDAP 2010-04-19 00:00:00 Completed [facility] Varicella (varivax)(chicken pox) 2010-04-19 00:00:00 Completed [facility] TDAP 2010-04-19 00:00:00 Completed [facility] Varicella (varivax)(chicken pox) 2010-04-19 00:00:00 Completed [facility] Meningococcal Polysaccharide (groups A, C, Y and W-135) conjugate vaccine (MCV4P) 2010-04-19 00:00:00 Completed [facility] TDAP 2010-04-19 00:00:00 Completed [facility] Varicella (varivax)(chicken pox) 2010-04-19 00:00:00 Completed [facility] Meningococcal Polysaccharide (groups A, C, Y and W-135) conjugate vaccine (MCV4P) 2010-04-19 00:00:00 Completed [facility] TDAP 2010-04-19 00:00:00 Completed [facility] Varicella (varivax)(chicken pox) 2010-04-19 00:00:00 Completed [facility] Meningococcal Polysaccharide (groups A, C, Y and W-135) conjugate vaccine (MCV4P) 2010-04-19 00:00:00 Completed [facility] TDAP 2010-04-19 00:00:00 Completed [facility] Varicella (varivax)(chicken pox) 2010-04-19 00:00:00 Completed [facility] Meningococcal Polysaccharide (groups A, C, Y and W-135) conjugate vaccine (MCV4P) 2010-04-19 00:00:00 Completed [facility] TDAP 2010-04-19 00:00:00 Completed [facility] Varicella (varivax)(chicken pox) 2010-04-19 00:00:00 Completed [facility] Meningococcal Polysaccharide (groups A, C, Y and W-135) conjugate vaccine (MCV4P) 2010-04-19 00:00:00 Completed [facility] TDAP 2010-04-19 00:00:00 Completed [facility] Varicella (varivax)(chicken pox) 2010-04-19 00:00:00 Completed [facility] Meningococcal Polysaccharide (groups A, C, Y and W-135) conjugate vaccine (MCV4P) 2010-04-19 00:00:00 Completed [facility] TDAP 2010-04-19 00:00:00 Completed [facility] Varicella (varivax)(chicken pox) 2010-04-19 00:00:00 Completed [facility] Meningococcal Polysaccharide (groups A, C, Y and W-135) conjugate vaccine (MCV4P) 2010-04-19 00:00:00 Completed [facility] TDAP 2010-04-19 00:00:00 Completed [facility] Varicella (varivax)(chicken pox) 2010-04-19 00:00:00 Completed [facility] Meningococcal Polysaccharide (groups A, C, Y and W-135) conjugate vaccine (MCV4P) 2010-04-19 00:00:00 Completed [facility] TDAP 2010-04-19 00:00:00 Completed [facility] Varicella (varivax)(chicken pox) 2010-04-19 00:00:00 Completed [facility] Meningococcal Polysaccharide (groups A, C, Y and W-135) conjugate vaccine (MCV4P) 2010-04-19 00:00:00 Completed [facility] TDAP 2010-04-19 00:00:00 Completed [facility] Varicella (varivax)(chicken pox) 2010-04-19 00:00:00 Completed [facility] Meningococcal Polysaccharide (groups A, C, Y and W-135) conjugate vaccine (MCV4P) 2010-04-19 00:00:00 Completed [facility] Meningococcal Polysaccharide (groups A, C, Y and W-135) conjugate vaccine (MCV4P) 2009-12-12 00:00:00 Completed [facility] TDAP 2009-12-12 00:00:00 Completed [facility] Meningococcal Polysaccharide (groups A, C, Y and W-135) conjugate vaccine (MCV4P) 2009-12-12 00:00:00 Completed [facility] TDAP 2009-12-12 00:00:00 Completed [facility] Meningococcal Polysaccharide (groups A, C, Y and W-135) conjugate vaccine (MCV4P) 2009-12-12 00:00:00 Completed [facility] TDAP 2009-12-12 00:00:00 Completed [facility] Meningococcal Polysaccharide (groups A, C, Y and W-135) conjugate vaccine (MCV4P) 2009-12-12 00:00:00 Completed [facility] TDAP 2009-12-12 00:00:00 Completed [facility] Meningococcal Polysaccharide (groups A, C, Y and W-135) conjugate vaccine (MCV4P) 2009-12-12 00:00:00 Completed [facility] TDAP 2009-12-12 00:00:00 Completed [facility] Meningococcal Polysaccharide (groups A, C, Y and W-135) conjugate vaccine (MCV4P) 2009-12-12 00:00:00 Completed [facility] TDAP 2009-12-12 00:00:00 Completed [facility] Meningococcal Polysaccharide (groups A, C, Y and W-135) conjugate vaccine (MCV4P) 2009-12-12 00:00:00 Completed [facility] TDAP 2009-12-12 00:00:00 Completed [facility] Meningococcal Polysaccharide (groups A, C, Y and W-135) conjugate vaccine (MCV4P) 2009-12-12 00:00:00 Completed [facility] TDAP 2009-12-12 00:00:00 Completed [facility] Meningococcal Polysaccharide (groups A, C, Y and W-135) conjugate vaccine (MCV4P) 2009-12-12 00:00:00 Completed [facility] TDAP 2009-12-12 00:00:00 Completed [facility] Meningococcal Polysaccharide (groups A, C, Y and W-135) conjugate vaccine (MCV4P) 2009-12-12 00:00:00 Completed [facility] TDAP 2009-12-12 00:00:00 Completed [facility] Meningococcal Polysaccharide (groups A, C, Y and W-135) conjugate vaccine (MCV4P) 2009-12-12 00:00:00 Completed [facility] TDAP 2009-12-12 00:00:00 Completed [facility] Meningococcal Polysaccharide (groups A, C, Y and W-135) conjugate vaccine (MCV4P) 2009-12-12 00:00:00 Completed [facility] TDAP 2009-12-12 00:00:00 Completed [facility] Meningococcal Polysaccharide (groups A, C, Y and W-135) conjugate vaccine (MCV4P) 2009-12-12 00:00:00 Completed [facility] TDAP 2009-12-12 00:00:00 Completed [facility] Meningococcal Polysaccharide (groups A, C, Y and W-135) conjugate vaccine (MCV4P) 2009-12-12 00:00:00 Completed [facility] TDAP 2009-12-12 00:00:00 Completed [facility] Meningococcal Polysaccharide (groups A, C, Y and W-135) conjugate vaccine (MCV4P) 2009-12-12 00:00:00 Completed [facility] TDAP 2009-12-12 00:00:00 Completed [facility] Meningococcal Polysaccharide (groups A, C, Y and W-135) conjugate vaccine (MCV4P) 2009-12-12 00:00:00 Completed [facility] TDAP 2009-12-12 00:00:00 Completed [facility] Meningococcal Polysaccharide (groups A, C, Y and W-135) conjugate vaccine (MCV4P) 2009-12-12 00:00:00 Completed [facility] TDAP 2009-12-12 00:00:00 Completed [facility] Meningococcal Polysaccharide (groups A, C, Y and W-135) conjugate vaccine (MCV4P) 2009-12-12 00:00:00 Completed [facility] TDAP 2009-12-12 00:00:00 Completed [facility] Meningococcal Polysaccharide (groups A, C, Y and W-135) conjugate vaccine (MCV4P) 2009-12-12 00:00:00 Completed [facility] TDAP 2009-12-12 00:00:00 Completed [facility] Varicella (varivax)(chicken pox) 2009-02-01 00:00:00 Completed [facility] Varicella (varivax)(chicken pox) 2009-02-01 00:00:00 Completed [facility] Varicella (varivax)(chicken pox) 2009-02-01 00:00:00 Completed [facility] Varicella (varivax)(chicken pox) 2009-02-01 00:00:00 Completed [facility] Varicella (varivax)(chicken pox) 2009-02-01 00:00:00 Completed [facility] Varicella (varivax)(chicken pox) 2009-02-01 00:00:00 Completed [facility] Varicella (varivax)(chicken pox) 2009-02-01 00:00:00 Completed [facility] Varicella (varivax)(chicken pox) 2009-02-01 00:00:00 Completed [facility] Varicella (varivax)(chicken pox) 2009-02-01 00:00:00 Completed [facility] Varicella (varivax)(chicken pox) 2009-02-01 00:00:00 Completed [facility] Varicella (varivax)(chicken pox) 2009-02-01 00:00:00 Completed [facility] Varicella (varivax)(chicken pox) 2009-02-01 00:00:00 Completed [facility] Varicella (varivax)(chicken pox) 2009-02-01 00:00:00 Completed [facility] Varicella (varivax)(chicken pox) 2009-02-01 00:00:00 Completed [facility] Varicella (varivax)(chicken pox) 2009-02-01 00:00:00 Completed [facility] Varicella (varivax)(chicken pox) 2009-02-01 00:00:00 Completed [facility] Varicella (varivax)(chicken pox) 2009-02-01 00:00:00 Completed [facility] Varicella (varivax)(chicken pox) 2009-02-01 00:00:00 Completed [facility] Varicella (varivax)(chicken pox) 2009-02-01 00:00:00 Completed [facility] Influenza Virus Vaccine - Whole 2008-07-27 00:00:00 Completed [facility] Influenza Virus Vaccine - Whole 2008-07-27 00:00:00 Completed [facility] Influenza Virus Vaccine - Whole 2008-07-27 00:00:00 Completed [facility] Influenza Virus Vaccine - Whole 2008-07-27 00:00:00 Completed [facility] Influenza Virus Vaccine - Whole 2008-07-27 00:00:00 Completed [facility] Influenza Virus Vaccine - Whole 2008-07-27 00:00:00 Completed [facility] Influenza Virus Vaccine - Whole 2008-07-27 00:00:00 Completed [facility] Influenza Virus Vaccine - Whole 2008-07-27 00:00:00 Completed [facility] Influenza Virus Vaccine - Whole 2008-07-27 00:00:00 Completed [facility] Influenza Virus Vaccine - Whole 2008-07-27 00:00:00 Completed [facility] Influenza Virus Vaccine - Whole 2007-08-19 00:00:00 Completed [facility] Influenza Virus Vaccine - Whole 2007-08-19 00:00:00 Completed [facility] Influenza Virus Vaccine - Whole 2007-08-19 00:00:00 Completed [facility] Influenza Virus Vaccine - Whole 2007-08-19 00:00:00 Completed [facility] Influenza Virus Vaccine - Whole 2007-08-19 00:00:00 Completed [facility] Influenza Virus Vaccine - Whole 2007-08-19 00:00:00 Completed [facility] Influenza Virus Vaccine - Whole 2007-08-19 00:00:00 Completed [facility] Influenza Virus Vaccine - Whole 2007-08-19 00:00:00 Completed [facility] Influenza Virus Vaccine - Whole 2007-08-19 00:00:00 Completed [facility] Influenza Virus Vaccine - Whole 2007-08-19 00:00:00 Completed [facility] DTAP 1999-02-06 00:00:00 Completed [facility] Hep B, Adol or Pedi Dosage 1999-02-06 00:00:00 Completed [facility] DTAP 1999-02-06 00:00:00 Completed [facility] Hep B, Adol or Pedi Dosage 1999-02-06 00:00:00 Completed [facility] DTAP 1999-02-06 00:00:00 Completed [facility] Hep B, Adol or Pedi Dosage 1999-02-06 00:00:00 Completed [facility] DTAP 1999-02-06 00:00:00 Completed [facility] Hep B, Adol or Pedi Dosage 1999-02-06 00:00:00 Completed [facility] DTAP 1999-02-06 00:00:00 Completed [facility] Hep B, Adol or Pedi Dosage 1999-02-06 00:00:00 Completed [facility] DTAP 1999-02-06 00:00:00 Completed [facility] Hep B, Adol or Pedi Dosage 1999-02-06 00:00:00 Completed [facility] DTAP 1999-02-06 00:00:00 Completed [facility] Hep B, Adol or Pedi Dosage 1999-02-06 00:00:00 Completed [facility] DTAP 1999-02-06 00:00:00 Completed [facility] Hep B, Adol or Pedi Dosage 1999-02-06 00:00:00 Completed [facility] DTAP 1999-02-06 00:00:00 Completed [facility] Hep B, Adol or Pedi Dosage 1999-02-06 00:00:00 Completed [facility] DTAP 1999-02-06 00:00:00 Completed [facility] Hep B, Adol or Pedi Dosage 1999-02-06 00:00:00 Completed [facility] DTaP, Unspecified Formulation 1999-02-06 00:00:00 Completed [facility] HIB 4 Dose Schedule 1999-02-06 00:00:00 Completed [facility] DTAP 1999-02-06 00:00:00 Completed [facility] Hep B, Adol or Pedi Dosage 1999-02-06 00:00:00 Completed [facility] DTaP, Unspecified Formulation 1999-02-06 00:00:00 Completed [facility] HIB 4 Dose Schedule 1999-02-06 00:00:00 Completed [facility] DTAP 1999-02-06 00:00:00 Completed [facility] Hep B, Adol or Pedi Dosage 1999-02-06 00:00:00 Completed [facility] DTaP, Unspecified Formulation 1999-02-06 00:00:00 Completed [facility] HIB 4 Dose Schedule 1999-02-06 00:00:00 Completed [facility] DTAP 1999-02-06 00:00:00 Completed [facility] Hep B, Adol or Pedi Dosage 1999-02-06 00:00:00 Completed [facility] DTaP, Unspecified Formulation 1999-02-06 00:00:00 Completed [facility] HIB 4 Dose Schedule 1999-02-06 00:00:00 Completed [facility] DTAP 1999-02-06 00:00:00 Completed [facility] Hep B, Adol or Pedi Dosage 1999-02-06 00:00:00 Completed [facility] DTaP, Unspecified Formulation 1999-02-06 00:00:00 Completed [facility] HIB 4 Dose Schedule 1999-02-06 00:00:00 Completed [facility] DTAP 1999-02-06 00:00:00 Completed [facility] Hep B, Adol or Pedi Dosage 1999-02-06 00:00:00 Completed [facility] DTaP, Unspecified Formulation 1999-02-06 00:00:00 Completed [facility] HIB 4 Dose Schedule 1999-02-06 00:00:00 Completed [facility] DTAP 1999-02-06 00:00:00 Completed [facility] Hep B, Adol or Pedi Dosage 1999-02-06 00:00:00 Completed [facility] DTaP, Unspecified Formulation 1999-02-06 00:00:00 Completed [facility] HIB 4 Dose Schedule 1999-02-06 00:00:00 Completed [facility] DTAP 1999-02-06 00:00:00 Completed [facility] Hep B, Adol or Pedi Dosage 1999-02-06 00:00:00 Completed [facility] DTaP, Unspecified Formulation 1999-02-06 00:00:00 Completed [facility] HIB 4 Dose Schedule 1999-02-06 00:00:00 Completed [facility] DTAP 1999-02-06 00:00:00 Completed [facility] Hep B, Adol or Pedi Dosage 1999-02-06 00:00:00 Completed [facility] DTaP, Unspecified Formulation 1999-02-06 00:00:00 Completed [facility] HIB 4 Dose Schedule 1999-02-06 00:00:00 Completed [facility] DTAP 1999-02-06 00:00:00 Completed [facility] Hep B, Adol or Pedi Dosage 1999-02-06 00:00:00 Completed [facility] DTaP, Unspecified Formulation 1999-02-06 00:00:00 Completed [facility] HIB 4 Dose Schedule 1999-02-06 00:00:00 Completed [facility] DTAP 1998 00:00:00 Completed [facility] Polio (IPV/OPV) 1998 00:00:00 Completed [facility] DTAP 1998 00:00:00 Completed [facility] Polio (IPV/OPV) 1998 00:00:00 Completed [facility] DTAP 1998 00:00:00 Completed [facility] Polio (IPV/OPV) 1998 00:00:00 Completed [facility] DTAP 1998 00:00:00 Completed [facility] Polio (IPV/OPV) 1998 00:00:00 Completed [facility] DTAP 1998 00:00:00 Completed [facility] Polio (IPV/OPV) 1998 00:00:00 Completed [facility] DTAP 1998 00:00:00 Completed [facility] Polio (IPV/OPV) 1998 00:00:00 Completed [facility] DTAP 1998 00:00:00 Completed [facility] Polio (IPV/OPV) 1998 00:00:00 Completed [facility] DTAP 1998 00:00:00 Completed [facility] Polio (IPV/OPV) 1998 00:00:00 Completed [facility] DTAP 1998 00:00:00 Completed [facility] Polio (IPV/OPV) 1998 00:00:00 Completed [facility] DTAP 1998 00:00:00 Completed [facility] Polio (IPV/OPV) 1998 00:00:00 Completed [facility] DTaP, Unspecified Formulation 1998 00:00:00 Completed [facility] HIB 4 Dose Schedule 1998 00:00:00 Completed [facility] IPV 1998 00:00:00 Completed [facility] DTAP 1998 00:00:00 Completed [facility] Polio (IPV/OPV) 1998 00:00:00 Completed [facility] DTaP, Unspecified Formulation 1998 00:00:00 Completed [facility] HIB 4 Dose Schedule 1998 00:00:00 Completed [facility] IPV 1998 00:00:00 Completed [facility] DTAP 1998 00:00:00 Completed [facility] Polio (IPV/OPV) 1998 00:00:00 Completed [facility] DTaP, Unspecified Formulation 1998 00:00:00 Completed [facility] HIB 4 Dose Schedule 1998 00:00:00 Completed [facility] IPV 1998 00:00:00 Completed [facility] DTAP 1998 00:00:00 Completed [facility] Polio (IPV/OPV) 1998 00:00:00 Completed [facility] DTaP, Unspecified Formulation 1998 00:00:00 Completed [facility] HIB 4 Dose Schedule 1998 00:00:00 Completed [facility] IPV 1998 00:00:00 Completed [facility] DTAP 1998 00:00:00 Completed [facility] Polio (IPV/OPV) 1998 00:00:00 Completed [facility] DTaP, Unspecified Formulation 1998 00:00:00 Completed [facility] HIB 4 Dose Schedule 1998 00:00:00 Completed [facility] IPV 1998 00:00:00 Completed [facility] DTAP 1998 00:00:00 Completed [facility] Polio (IPV/OPV) 1998 00:00:00 Completed [facility] DTaP, Unspecified Formulation 1998 00:00:00 Completed [facility] HIB 4 Dose Schedule 1998 00:00:00 Completed [facility] IPV 1998 00:00:00 Completed [facility] DTAP 1998 00:00:00 Completed [facility] Polio (IPV/OPV) 1998 00:00:00 Completed [facility] DTaP, Unspecified Formulation 1998 00:00:00 Completed [facility] HIB 4 Dose Schedule 1998 00:00:00 Completed [facility] IPV 1998 00:00:00 Completed [facility] DTAP 1998 00:00:00 Completed [facility] Polio (IPV/OPV) 1998 00:00:00 Completed [facility] DTaP, Unspecified Formulation 1998 00:00:00 Completed [facility] HIB 4 Dose Schedule 1998 00:00:00 Completed [facility] IPV 1998 00:00:00 Completed [facility] DTAP 1998 00:00:00 Completed [facility] Polio (IPV/OPV) 1998 00:00:00 Completed [facility] DTaP, Unspecified Formulation 1998 00:00:00 Completed [facility] HIB 4 Dose Schedule 1998 00:00:00 Completed [facility] IPV 1998 00:00:00 Completed [facility] DTAP 1998 00:00:00 Completed [facility] Polio (IPV/OPV) 1998 00:00:00 Completed [facility] DTaP, Unspecified Formulation 1998 00:00:00 Completed [facility] HIB 4 Dose Schedule 1998 00:00:00 Completed [facility] IPV 1998 00:00:00 Completed [facility] DTAP 1998 00:00:00 Completed [facility] Polio (IPV/OPV) 1998 00:00:00 Completed [facility] DTAP 1998 00:00:00 Completed [facility] Polio (IPV/OPV) 1998 00:00:00 Completed [facility] DTAP 1998 00:00:00 Completed [facility] Polio (IPV/OPV) 1998 00:00:00 Completed [facility] DTAP 1998 00:00:00 Completed [facility] Polio (IPV/OPV) 1998 00:00:00 Completed [facility] DTAP 1998 00:00:00 Completed [facility] Polio (IPV/OPV) 1998 00:00:00 Completed [facility] DTAP 1998 00:00:00 Completed [facility] Polio (IPV/OPV) 1998 00:00:00 Completed [facility] DTAP 1998 00:00:00 Completed [facility] Polio (IPV/OPV) 1998 00:00:00 Completed [facility] DTAP 1998 00:00:00 Completed [facility] Polio (IPV/OPV) 1998 00:00:00 Completed [facility] DTAP 1998 00:00:00 Completed [facility] Polio (IPV/OPV) 1998 00:00:00 Completed [facility] DTAP 1998 00:00:00 Completed [facility] Polio (IPV/OPV) 1998 00:00:00 Completed [facility] DTaP, Unspecified Formulation 1998 00:00:00 Completed [facility] HIB 4 Dose Schedule 1998 00:00:00 Completed [facility] IPV 1998 00:00:00 Completed [facility] DTAP 1998 00:00:00 Completed [facility] Polio (IPV/OPV) 1998 00:00:00 Completed [facility] DTaP, Unspecified Formulation 1998 00:00:00 Completed [facility] HIB 4 Dose Schedule 1998 00:00:00 Completed [facility] IPV 1998 00:00:00 Completed [facility] DTAP 1998 00:00:00 Completed [facility] Polio (IPV/OPV) 1998 00:00:00 Completed [facility] DTaP, Unspecified Formulation 1998 00:00:00 Completed [facility] HIB 4 Dose Schedule 1998 00:00:00 Completed [facility] IPV 1998 00:00:00 Completed [facility] DTAP 1998 00:00:00 Completed [facility] Polio (IPV/OPV) 1998 00:00:00 Completed [facility] DTaP, Unspecified Formulation 1998 00:00:00 Completed [facility] HIB 4 Dose Schedule 1998 00:00:00 Completed [facility] IPV 1998 00:00:00 Completed [facility] DTAP 1998 00:00:00 Completed [facility] Polio (IPV/OPV) 1998 00:00:00 Completed [facility] DTaP, Unspecified Formulation 1998 00:00:00 Completed [facility] HIB 4 Dose Schedule 1998 00:00:00 Completed [facility] IPV 1998 00:00:00 Completed [facility] DTAP 1998 00:00:00 Completed [facility] Polio (IPV/OPV) 1998 00:00:00 Completed [facility] DTaP, Unspecified Formulation 1998 00:00:00 Completed [facility] HIB 4 Dose Schedule 1998 00:00:00 Completed [facility] IPV 1998 00:00:00 Completed [facility] DTAP 1998 00:00:00 Completed [facility] Polio (IPV/OPV) 1998 00:00:00 Completed [facility] DTaP, Unspecified Formulation 1998 00:00:00 Completed [facility] HIB 4 Dose Schedule 1998 00:00:00 Completed [facility] IPV 1998 00:00:00 Completed [facility] DTAP 1998 00:00:00 Completed [facility] Polio (IPV/OPV) 1998 00:00:00 Completed [facility] DTaP, Unspecified Formulation 1998 00:00:00 Completed [facility] HIB 4 Dose Schedule 1998 00:00:00 Completed [facility] IPV 1998 00:00:00 Completed [facility] DTAP 1998 00:00:00 Completed [facility] Polio (IPV/OPV) 1998 00:00:00 Completed [facility] DTaP, Unspecified Formulation 1998 00:00:00 Completed [facility] HIB 4 Dose Schedule 1998 00:00:00 Completed [facility] IPV 1998 00:00:00 Completed [facility] DTAP 1998 00:00:00 Completed [facility] Polio (IPV/OPV) 1998 00:00:00 Completed [facility] DTaP, Unspecified Formulation 1998 00:00:00 Completed [facility] HIB 4 Dose Schedule 1998 00:00:00 Completed [facility] IPV 1998 00:00:00 Completed [facility] Hep B, Adol or Pedi Dosage 1998 00:00:00 Completed [facility] Hep B, Adol or Pedi Dosage 1998 00:00:00 Completed [facility] Hep B, Adol or Pedi Dosage 1998 00:00:00 Completed [facility] Hep B, Adol or Pedi Dosage 1998 00:00:00 Completed [facility] Hep B, Adol or Pedi Dosage 1998 00:00:00 Completed [facility] Hep B, Adol or Pedi Dosage 1998 00:00:00 Completed [facility] Hep B, Adol or Pedi Dosage 1998 00:00:00 Completed [facility] Hep B, Adol or Pedi Dosage 1998 00:00:00 Completed [facility] Hep B, Adol or Pedi Dosage 1998 00:00:00 Completed [facility] Hep B, Adol or Pedi Dosage 1998 00:00:00 Completed [facility] Hep B, Adol or Pedi Dosage 1998 00:00:00 Completed [facility] Hep B, Adol or Pedi Dosage 1998 00:00:00 Completed [facility] Hep B, Adol or Pedi Dosage 1998 00:00:00 Completed [facility] Hep B, Adol or Pedi Dosage 1998 00:00:00 Completed [facility] Hep B, Adol or Pedi Dosage 1998 00:00:00 Completed [facility] Hep B, Adol or Pedi Dosage 1998 00:00:00 Completed [facility] Hep B, Adol or Pedi Dosage 1998 00:00:00 Completed [facility] Hep B, Adol or Pedi Dosage 1998 00:00:00 Completed [facility] Hep B, Adol or Pedi Dosage 1998 00:00:00 Completed [facility] Hep B, Adol or Pedi Dosage 1998 00:00:00 Completed [facility] Hep B, Adol or Pedi Dosage 1998 00:00:00 Completed [facility] Hep B, Adol or Pedi Dosage 1998 00:00:00 Completed [facility] Hep B, Adol or Pedi Dosage 1998 00:00:00 Completed [facility] Hep B, Adol or Pedi Dosage 1998 00:00:00 Completed [facility] Hep B, Adol or Pedi Dosage 1998 00:00:00 Completed [facility] Hep B, Adol or Pedi Dosage 1998 00:00:00 Completed [facility] Hep B, Adol or Pedi Dosage 1998 00:00:00 Completed [facility] Hep B, Adol or Pedi Dosage 1998 00:00:00 Completed [facility] Hep B, Adol or Pedi Dosage 1998 00:00:00 Completed [facility] Hep B, Adol or Pedi Dosage 1998 00:00:00 Completed [facility] Hep B, Adol or Pedi Dosage 1998 00:00:00 Completed [facility] Hep B, Adol or Pedi Dosage 1998 00:00:00 Completed [facility] Hep B, Adol or Pedi Dosage 1998 00:00:00 Completed [facility] Hep B, Adol or Pedi Dosage 1998 00:00:00 Completed [facility] Hep B, Adol or Pedi Dosage 1998 00:00:00 Completed [facility] Hep B, Adol or Pedi Dosage 1998 00:00:00 Completed [facility] Hep B, Adol or Pedi Dosage 1998 00:00:00 Completed [facility] Hep B, Adol or Pedi Dosage 1998 00:00:00 Completed [facility] Meningococcal B, OMV Unknown Completed [facility] Influenza Virus Vaccine Quad IM 3+ YRS Unknown Completed [facility] SARS-COV-2 COVID-19 MODERNA 12+ YRS VACCINE Unknown Completed [facility] TDAP Unknown Completed [facility] DTAP Unknown Completed [facility] HEPATITIS A Unknown Completed [facility] Hep B, Adol or Pedi Dosage Unknown Completed [facility] Meningococcal Polysaccharide (groups A, C, Y and W-135) conjugate vaccine (MCV4P) Unknown Completed [facility] Polio (IPV/OPV) Unknown Completed [facility] Varicella (varivax)(chicken pox) Unknown Completed [facility] Meningococcal B, Recombinant Unknown Completed [facility] HPV Unknown Completed [facility] DTaP, Unspecified Formulation Unknown Completed [facility] Influenza Virus Vaccine - Whole Unknown Completed [facility] HIB 4 Dose Schedule Unknown Completed [facility] IPV Unknown Completed [facility] Influenza Virus Vaccine Quad IM, Preserv and ABX Free 6 MO-64 YRS (FLUCELVAX) Unknown Completed [facility] Meningococcal B, OMV Unknown Completed [facility] Influenza Virus Vaccine Quad IM 3+ YRS Unknown Completed [facility] SARS-COV-2 COVID-19 MODERNA 12+ YRS VACCINE Unknown Completed [facility] TDAP Unknown Completed [facility] DTAP Unknown Completed [facility] HEPATITIS A Unknown Completed [facility] Hep B, Adol or Pedi Dosage Unknown Completed [facility] Meningococcal Polysaccharide (groups A, C, Y and W-135) conjugate vaccine (MCV4P) Unknown Completed [facility] Polio (IPV/OPV) Unknown Completed [facility] Varicella (varivax)(chicken pox) Unknown Completed [facility] Meningococcal B, Recombinant Unknown Completed [facility] HPV Unknown Completed [facility] DTaP, Unspecified Formulation Unknown Completed [facility] Influenza Virus Vaccine - Whole Unknown Completed [facility] HIB 4 Dose Schedule Unknown Completed [facility] IPV Unknown Completed [facility] Influenza Virus Vaccine Quad IM, Preserv and ABX Free 6 MO-64 YRS (FLUCELVAX) Unknown Completed [facility] Influenza Virus Vaccine Quad IM 3+ YRS Unknown Completed [facility] Meningococcal B, OMV Unknown Completed [facility] SARS-COV-2 COVID-19 MODERNA 12+ YRS VACCINE Unknown Completed [facility] TDAP Unknown Completed [facility] DTAP Unknown Completed [facility] HEPATITIS A Unknown Completed [facility] Hep B, Adol or Pedi Dosage Unknown Completed [facility] Meningococcal Polysaccharide (groups A, C, Y and W-135) conjugate vaccine (MCV4P) Unknown Completed [facility] Polio (IPV/OPV) Unknown Completed [facility] Varicella (varivax)(chicken pox) Unknown Completed [facility] Meningococcal B, Recombinant Unknown Completed [facility] HPV Unknown Completed [facility] DTaP, Unspecified Formulation Unknown Completed [facility] Influenza Virus Vaccine - Whole Unknown Completed [facility] HIB 4 Dose Schedule Unknown Completed [facility] IPV Unknown Completed [facility] Influenza Virus Vaccine Quad IM, Preserv and ABX Free 6 MO-64 YRS (FLUCELVAX) Unknown Completed [facility] Influenza Virus Vaccine Quad IM 3+ YRS Unknown Completed [facility] Meningococcal B, OMV Unknown Completed [facility] SARS-COV-2 COVID-19 MODERNA 12+ YRS VACCINE Unknown Completed [facility] DTAP Unknown Completed [facility] HEPATITIS A Unknown Completed [facility] Hep B, Adol or Pedi Dosage Unknown Completed [facility] Meningococcal Polysaccharide (groups A, C, Y and W-135) conjugate vaccine (MCV4P) Unknown Completed [facility] Polio (IPV/OPV) Unknown Completed [facility] Varicella (varivax)(chicken pox) Unknown Completed [facility] Meningococcal B, Recombinant Unknown Completed [facility] HPV Unknown Completed [facility] DTaP, Unspecified Formulation Unknown Completed [facility] Influenza Virus Vaccine - Whole Unknown Completed [facility] HIB 4 Dose Schedule Unknown Completed [facility] IPV Unknown Completed [facility] TDAP Unknown Completed [facility] Influenza Virus Vaccine Quad IM, Preserv and ABX Free 6 MO-64 YRS (FLUCELVAX) Unknown Completed [facility] Influenza Virus Vaccine Quad IM 3+ YRS Unknown Completed [facility] Meningococcal B, OMV Unknown Completed [facility] SARS-COV-2 COVID-19 MODERNA 12+ YRS VACCINE Unknown Completed [facility] TDAP Unknown Completed [facility] DTAP Unknown Completed [facility] HEPATITIS A Unknown Completed [facility] Hep B, Adol or Pedi Dosage Unknown Completed [facility] Meningococcal Polysaccharide (groups A, C, Y and W-135) conjugate vaccine (MCV4P) Unknown Completed [facility] Polio (IPV/OPV) Unknown Completed [facility] Varicella (varivax)(chicken pox) Unknown Completed [facility] Meningococcal B, Recombinant Unknown Completed [facility] HPV Unknown Completed [facility] DTaP, Unspecified Formulation Unknown Completed [facility] Influenza Virus Vaccine - Whole Unknown Completed [facility] HIB 4 Dose Schedule Unknown Completed [facility] IPV Unknown Completed [facility] Influenza Virus Vaccine Quad IM, Preserv and ABX Free 6 MO-64 YRS (FLUCELVAX) Unknown Completed [facility] Influenza Virus Vaccine Quad IM 3+ YRS Unknown Completed [facility] Meningococcal B, OMV Unknown Completed [facility] SARS-COV-2 COVID-19 MODERNA 12+ YRS VACCINE Unknown Completed [facility] TDAP Unknown Completed [facility] DTAP Unknown Completed [facility] HEPATITIS A Unknown Completed [facility] Hep B, Adol or Pedi Dosage Unknown Completed [facility] Meningococcal Polysaccharide (groups A, C, Y and W-135) conjugate vaccine (MCV4P) Unknown Completed [facility] Polio (IPV/OPV) Unknown Completed [facility] Varicella (varivax)(chicken pox) Unknown Completed [facility] Meningococcal B, Recombinant Unknown Completed [facility] HPV Unknown Completed [facility] DTaP, Unspecified Formulation Unknown Completed [facility] Influenza Virus Vaccine - Whole Unknown Completed [facility] HIB 4 Dose Schedule Unknown Completed [facility] IPV Unknown Completed [facility] Influenza Virus Vaccine Quad IM, Preserv and ABX Free 6 MO-64 YRS (FLUCELVAX) Unknown Completed [facility] Influenza Virus Vaccine Quad IM 3+ YRS Unknown Completed [facility] Meningococcal B, OMV Unknown Completed [facility] SARS-COV-2 COVID-19 MODERNA 12+ YRS VACCINE Unknown Completed [facility] TDAP Unknown Completed [facility] DTAP Unknown Completed [facility] HEPATITIS A Unknown Completed [facility] Hep B, Adol or Pedi Dosage Unknown Completed [facility] Meningococcal Polysaccharide (groups A, C, Y and W-135) conjugate vaccine (MCV4P) Unknown Completed [facility] Polio (IPV/OPV) Unknown Completed [facility] Varicella (varivax)(chicken pox) Unknown Completed [facility] Meningococcal B, Recombinant Unknown Completed [facility] HPV Unknown Completed [facility] DTaP, Unspecified Formulation Unknown Completed [facility] Influenza Virus Vaccine - Whole Unknown Completed [facility] HIB 4 Dose Schedule Unknown Completed [facility] IPV Unknown Completed [facility] Influenza Virus Vaccine Quad IM, Preserv and ABX Free 6 MO-64 YRS (FLUCELVAX) Unknown Completed [facility] Influenza Virus Vaccine Quad IM 3+ YRS Unknown Completed [facility] Meningococcal B, OMV Unknown Completed [facility] SARS-COV-2 COVID-19 MODERNA 12+ YRS VACCINE Unknown Completed [facility] TDAP Unknown Completed [facility] DTAP Unknown Completed [facility] HEPATITIS A Unknown Completed [facility] Hep B, Adol or Pedi Dosage Unknown Completed [facility] Meningococcal Polysaccharide (groups A, C, Y and W-135) conjugate vaccine (MCV4P) Unknown Completed [facility] Polio (IPV/OPV) Unknown Completed [facility] Varicella (varivax)(chicken pox) Unknown Completed [facility] Meningococcal B, Recombinant Unknown Completed [facility] HPV Unknown Completed [facility] DTaP, Unspecified Formulation Unknown Completed [facility] Influenza Virus Vaccine - Whole Unknown Completed [facility] HIB 4 Dose Schedule Unknown Completed [facility] IPV Unknown Completed [facility] Influenza Virus Vaccine Quad IM, Preserv and ABX Free 6 MO-64 YRS (FLUCELVAX) Unknown Completed [facility] Influenza Virus Vaccine Quad IM 3+ YRS Unknown Completed [facility] Meningococcal B, OMV Unknown Completed [facility] SARS-COV-2 COVID-19 MODERNA 12+ YRS VACCINE Unknown Completed [facility] TDAP Unknown Completed [facility] DTAP Unknown Completed [facility] HEPATITIS A Unknown Completed [facility] Hep B, Adol or Pedi Dosage Unknown Completed [facility] Meningococcal Polysaccharide (groups A, C, Y and W-135) conjugate vaccine (MCV4P) Unknown Completed [facility] Polio (IPV/OPV) Unknown Completed [facility] Varicella (varivax)(chicken pox) Unknown Completed [facility] Meningococcal B, Recombinant Unknown Completed [facility] HPV Unknown Completed [facility] DTaP, Unspecified Formulation Unknown Completed [facility] Influenza Virus Vaccine - Whole Unknown Completed [facility] HIB 4 Dose Schedule Unknown Completed [facility] IPV Unknown Completed [facility] Influenza Virus Vaccine Quad IM, Preserv and ABX Free 6 MO-64 YRS (FLUCELVAX) Unknown Completed [facility] Influenza Virus Vaccine Quad IM 3+ YRS Unknown Completed [facility] Meningococcal B, OMV Unknown Completed [facility] SARS-COV-2 COVID-19 MODERNA 12+ YRS VACCINE Unknown Completed [facility] TDAP Unknown Completed [facility] DTAP Unknown Completed [facility] HEPATITIS A Unknown Completed [facility] Hep B, Adol or Pedi Dosage Unknown Completed [facility] Meningococcal Polysaccharide (groups A, C, Y and W-135) conjugate vaccine (MCV4P) Unknown Completed [facility] Polio (IPV/OPV) Unknown Completed [facility] Varicella (varivax)(chicken pox) Unknown Completed [facility] Meningococcal B, Recombinant Unknown Completed [facility] HPV Unknown Completed [facility] DTaP, Unspecified Formulation Unknown Completed [facility] Influenza Virus Vaccine - Whole Unknown Completed [facility] HIB 4 Dose Schedule Unknown Completed [facility] IPV Unknown Completed [facility] Influenza Virus Vaccine Quad IM, Preserv and ABX Free 6 MO-64 YRS (FLUCELVAX) Unknown Completed [facility] Influenza Virus Vaccine Quad IM 3+ YRS Unknown Completed [facility] Meningococcal B, OMV Unknown Completed [facility] SARS-COV-2 COVID-19 MODERNA 12+ YRS VACCINE Unknown Completed [facility] TDAP Unknown Completed [facility] DTAP Unknown Completed [facility] HEPATITIS A Unknown Completed [facility] Hep B, Adol or Pedi Dosage Unknown Completed [facility] Meningococcal Polysaccharide (groups A, C, Y and W-135) conjugate vaccine (MCV4P) Unknown Completed [facility] Polio (IPV/OPV) Unknown Completed [facility] Varicella (varivax)(chicken pox) Unknown Completed [facility] Meningococcal B, Recombinant Unknown Completed [facility] HPV Unknown Completed [facility] DTaP, Unspecified Formulation Unknown Completed [facility] Influenza Virus Vaccine - Whole Unknown Completed [facility] HIB 4 Dose Schedule Unknown Completed [facility] IPV Unknown Completed [facility] Influenza Virus Vaccine Quad IM, Preserv and ABX Free 6 MO-64 YRS (FLUCELVAX) Unknown Completed [facility] Influenza Virus Vaccine Quad IM 3+ YRS Unknown Completed [facility] Meningococcal B, OMV Unknown Completed [facility] SARS-COV-2 COVID-19 MODERNA 12+ YRS VACCINE Unknown Completed [facility] TDAP Unknown Completed [facility] DTAP Unknown Completed [facility] HEPATITIS A Unknown Completed [facility] Hep B, Adol or Pedi Dosage Unknown Completed [facility] Meningococcal Polysaccharide (groups A, C, Y and W-135) conjugate vaccine (MCV4P) Unknown Completed [facility] Polio (IPV/OPV) Unknown Completed [facility] Varicella (varivax)(chicken pox) Unknown Completed [facility] Meningococcal B, Recombinant Unknown Completed [facility] HPV Unknown Completed [facility] DTaP, Unspecified Formulation Unknown Completed [facility] Influenza Virus Vaccine - Whole Unknown Completed [facility] HIB 4 Dose Schedule Unknown Completed [facility] IPV Unknown Completed [facility] Influenza Virus Vaccine Quad IM, Preserv and ABX Free 6 MO-64 YRS (FLUCELVAX) Unknown Completed [facility] Influenza Virus Vaccine Quad IM 3+ YRS Unknown Completed [facility] Meningococcal B, OMV Unknown Completed [facility] SARS-COV-2 COVID-19 MODERNA 12+ YRS VACCINE Unknown Completed [facility] TDAP Unknown Completed [facility] DTAP Unknown Completed [facility] HEPATITIS A Unknown Completed [facility] Hep B, Adol or Pedi Dosage Unknown Completed [facility] Meningococcal Polysaccharide (groups A, C, Y and W-135) conjugate vaccine (MCV4P) Unknown Completed [facility] Polio (IPV/OPV) Unknown Completed [facility] Varicella (varivax)(chicken pox) Unknown Completed [facility] Meningococcal B, Recombinant Unknown Completed [facility] HPV Unknown Completed [facility] DTaP, Unspecified Formulation Unknown Completed [facility] Influenza Virus Vaccine - Whole Unknown Completed [facility] HIB 4 Dose Schedule Unknown Completed [facility] IPV Unknown Completed [facility] Influenza Virus Vaccine Quad IM, Preserv and ABX Free 6 MO-64 YRS (FLUCELVAX) Unknown Completed [facility] Influenza Virus Vaccine Quad IM 3+ YRS Unknown Completed [facility] Meningococcal B, OMV Unknown Completed [facility] SARS-COV-2 COVID-19 MODERNA 12+ YRS VACCINE Unknown Completed [facility] TDAP Unknown Completed [facility] DTAP Unknown Completed [facility] HEPATITIS A Unknown Completed [facility] Hep B, Adol or Pedi Dosage Unknown Completed [facility] Meningococcal Polysaccharide (groups A, C, Y and W-135) conjugate vaccine (MCV4P) Unknown Completed [facility] Polio (IPV/OPV) Unknown Completed [facility] Varicella (varivax)(chicken pox) Unknown Completed [facility] Meningococcal B, Recombinant Unknown Completed [facility] HPV Unknown Completed [facility] DTaP, Unspecified Formulation Unknown Completed [facility] Influenza Virus Vaccine - Whole Unknown Completed [facility] HIB 4 Dose Schedule Unknown Completed [facility] IPV Unknown Completed [facility] Influenza Virus Vaccine Quad IM, Preserv and ABX Free 6 MO-64 YRS (FLUCELVAX) Unknown Completed [facility] Influenza Virus Vaccine Quad IM 3+ YRS Unknown Completed [facility] Meningococcal B, OMV Unknown Completed [facility] SARS-COV-2 COVID-19 MODERNA 12+ YRS VACCINE Unknown Completed [facility] TDAP Unknown Completed [facility] DTAP Unknown Completed [facility] HEPATITIS A Unknown Completed [facility] Hep B, Adol or Pedi Dosage Unknown Completed [facility] Meningococcal Polysaccharide (groups A, C, Y and W-135) conjugate vaccine (MCV4P) Unknown Completed [facility] Polio (IPV/OPV) Unknown Completed [facility] Varicella (varivax)(chicken pox) Unknown Completed [facility] Meningococcal B, Recombinant Unknown Completed [facility] HPV Unknown Completed [facility] DTaP, Unspecified Formulation Unknown Completed [facility] Influenza Virus Vaccine - Whole Unknown Completed [facility] HIB 4 Dose Schedule Unknown Completed [facility] IPV Unknown Completed [facility] Influenza Virus Vaccine Quad IM, Preserv and ABX Free 6 MO-64 YRS (FLUCELVAX) Unknown Completed [facility] Influenza Virus Vaccine Quad IM 3+ YRS Unknown Completed [facility] Meningococcal B, OMV Unknown Completed [facility] SARS-COV-2 COVID-19 MODERNA 12+ YRS VACCINE Unknown Completed [facility] TDAP Unknown Completed [facility] DTAP Unknown Completed [facility] HEPATITIS A Unknown Completed [facility] Hep B, Adol or Pedi Dosage Unknown Completed [facility] Meningococcal Polysaccharide (groups A, C, Y and W-135) conjugate vaccine (MCV4P) Unknown Completed [facility] Polio (IPV/OPV) Unknown Completed [facility] Varicella (varivax)(chicken pox) Unknown Completed [facility] Meningococcal B, Recombinant Unknown Completed [facility] HPV Unknown Completed [facility] DTaP, Unspecified Formulation Unknown Completed [facility] Influenza Virus Vaccine - Whole Unknown Completed [facility] HIB 4 Dose Schedule Unknown Completed [facility] IPV Unknown Completed [facility] Influenza Virus Vaccine Quad IM, Preserv and ABX Free 6 MO-64 YRS (FLUCELVAX) Unknown Completed [facility] Influenza Virus Vaccine Quad IM 3+ YRS Unknown Completed [facility] Meningococcal B, OMV Unknown Completed [facility] SARS-COV-2 COVID-19 MODERNA 12+ YRS VACCINE Unknown Completed [facility] TDAP Unknown Completed [facility] DTAP Unknown Completed [facility] HEPATITIS A Unknown Completed [facility] Hep B, Adol or Pedi Dosage Unknown Completed [facility] Meningococcal Polysaccharide (groups A, C, Y and W-135) conjugate vaccine (MCV4P) Unknown Completed [facility] Polio (IPV/OPV) Unknown Completed [facility] Varicella (varivax)(chicken pox) Unknown Completed [facility] Meningococcal B, Recombinant Unknown Completed [facility] HPV Unknown Completed [facility] DTaP, Unspecified Formulation Unknown Completed [facility] Influenza Virus Vaccine - Whole Unknown Completed [facility] HIB 4 Dose Schedule Unknown Completed [facility] IPV Unknown Completed [facility] Influenza Virus Vaccine Quad IM, Preserv and ABX Free 6 MO-64 YRS (FLUCELVAX) Unknown Completed [facility] Influenza Virus Vaccine Quad IM 3+ YRS Unknown Completed [facility] Meningococcal B, OMV Unknown Completed [facility] SARS-COV-2 COVID-19 MODERNA 12+ YRS VACCINE Unknown Completed [facility] TDAP Unknown Completed [facility] DTAP Unknown Completed [facility] HEPATITIS A Unknown Completed [facility] Hep B, Adol or Pedi Dosage Unknown Completed [facility] Meningococcal Polysaccharide (groups A, C, Y and W-135) conjugate vaccine (MCV4P) Unknown Completed [facility] Polio (IPV/OPV) Unknown Completed [facility] Varicella (varivax)(chicken pox) Unknown Completed [facility] Meningococcal B, Recombinant Unknown Completed [facility] HPV Unknown Completed [facility] DTaP, Unspecified Formulation Unknown Completed [facility] Influenza Virus Vaccine - Whole Unknown Completed [facility] HIB 4 Dose Schedule Unknown Completed [facility] IPV Unknown Completed [facility] Influenza Virus Vaccine Quad IM, Preserv and ABX Free 6 MO-64 YRS (FLUCELVAX) Unknown Completed [facility] HPV Unknown Completed [facility] Influenza Virus Vaccine Quad IM, Preserv and ABX Free 6 MO-64 YRS (FLUCELVAX) Unknown Completed [facility] Influenza Virus Vaccine Quad IM 3+ YRS Unknown Completed [facility] Meningococcal B, OMV Unknown Completed [facility] SARS-COV-2 COVID-19 MODERNA 12+ YRS VACCINE Unknown Completed [facility] TDAP Unknown Completed [facility] DTAP Unknown Completed [facility] HEPATITIS A Unknown Completed [facility] Hep B, Adol or Pedi Dosage Unknown Completed [facility] Meningococcal Polysaccharide (groups A, C, Y and W-135) conjugate vaccine (MCV4P) Unknown Completed [facility] Polio (IPV/OPV) Unknown Completed [facility] Varicella (varivax)(chicken pox) Unknown Completed [facility] Meningococcal B, Recombinant Unknown Completed [facility] DTaP, Unspecified Formulation Unknown Completed [facility] Influenza Virus Vaccine - Whole Unknown Completed [facility] HIB 4 Dose Schedule Unknown Completed [facility] IPV Unknown Completed [facility] Influenza Virus Vaccine Quad IM 3+ YRS Unknown Completed [facility] Meningococcal B, OMV Unknown Completed [facility] SARS-COV-2 COVID-19 MODERNA 12+ YRS VACCINE Unknown Completed [facility] TDAP Unknown Completed [facility] DTAP Unknown Completed [facility] HEPATITIS A Unknown Completed [facility] Hep B, Adol or Pedi Dosage Unknown Completed [facility] Meningococcal Polysaccharide (groups A, C, Y and W-135) conjugate vaccine (MCV4P) Unknown Completed [facility] Polio (IPV/OPV) Unknown Completed [facility] Varicella (varivax)(chicken pox) Unknown Completed [facility] Meningococcal B, Recombinant Unknown Completed [facility] HPV Unknown Completed [facility] DTaP, Unspecified Formulation Unknown Completed [facility] Influenza Virus Vaccine - Whole Unknown Completed [facility] HIB 4 Dose Schedule Unknown Completed [facility] IPV Unknown Completed [facility] Influenza Virus Vaccine Quad IM, Preserv and ABX Free 6 MO-64 YRS (FLUCELVAX) Unknown Completed [facility] HPV Unknown Completed [facility] Influenza Virus Vaccine Quad IM, Preserv and ABX Free 6 MO-64 YRS (FLUCELVAX) Unknown Completed [facility] Influenza Virus Vaccine Quad IM 3+ YRS Unknown Completed [facility] Meningococcal B, OMV Unknown Completed [facility] SARS-COV-2 COVID-19 MODERNA 12+ YRS VACCINE Unknown Completed [facility] TDAP Unknown Completed [facility] DTAP Unknown Completed [facility] HEPATITIS A Unknown Completed [facility] Hep B, Adol or Pedi Dosage Unknown Completed [facility] Meningococcal Polysaccharide (groups A, C, Y and W-135) conjugate vaccine (MCV4P) Unknown Completed [facility] Polio (IPV/OPV) Unknown Completed [facility] Varicella (varivax)(chicken pox) Unknown Completed [facility] Meningococcal B, Recombinant Unknown Completed [facility] DTaP, Unspecified Formulation Unknown Completed [facility] Influenza Virus Vaccine - Whole Unknown Completed [facility] HIB 4 Dose Schedule Unknown Completed [facility] IPV Unknown Completed [facility] Influenza Virus Vaccine Quad IM 3+ YRS Unknown Completed [facility] Meningococcal B, OMV Unknown Completed [facility] SARS-COV-2 COVID-19 MODERNA 12+ YRS VACCINE Unknown Completed [facility] TDAP Unknown Completed [facility] DTAP Unknown Completed [facility] HEPATITIS A Unknown Completed [facility] Hep B, Adol or Pedi Dosage Unknown Completed [facility] Meningococcal Polysaccharide (groups A, C, Y and W-135) conjugate vaccine (MCV4P) Unknown Completed [facility] Polio (IPV/OPV) Unknown Completed [facility] Varicella (varivax)(chicken pox) Unknown Completed [facility] Meningococcal B, Recombinant Unknown Completed [facility] HPV Unknown Completed [facility] DTaP, Unspecified Formulation Unknown Completed [facility] Influenza Virus Vaccine - Whole Unknown Completed [facility] HIB 4 Dose Schedule Unknown Completed [facility] IPV Unknown Completed [facility] Influenza Virus Vaccine Quad IM, Preserv and ABX Free 6 MO-64 YRS (FLUCELVAX) Unknown Completed [facility] Influenza Virus Vaccine Quad IM 3+ YRS Unknown Completed [facility] Meningococcal B, OMV Unknown Completed [facility] SARS-COV-2 COVID-19 MODERNA 12+ YRS VACCINE Unknown Completed [facility] TDAP Unknown Completed [facility] DTAP Unknown Completed [facility] HEPATITIS A Unknown Completed [facility] Hep B, Adol or Pedi Dosage Unknown Completed [facility] Meningococcal Polysaccharide (groups A, C, Y and W-135) conjugate vaccine (MCV4P) Unknown Completed [facility] Polio (IPV/OPV) Unknown Completed [facility] Varicella (varivax)(chicken pox) Unknown Completed [facility] Meningococcal B, Recombinant Unknown Completed [facility] HPV Unknown Completed [facility] DTaP, Unspecified Formulation Unknown Completed [facility] Influenza Virus Vaccine - Whole Unknown Completed [facility] HIB 4 Dose Schedule Unknown Completed [facility] IPV Unknown Completed [facility] Influenza Virus Vaccine Quad IM, Preserv and ABX Free 6 MO-64 YRS (FLUCELVAX) Unknown Completed [facility] Meningococcal B, OMV Unknown Completed [facility] SARS-COV-2 COVID-19 MODERNA 12+ YRS VACCINE Unknown Completed [facility] DTAP Unknown Completed [facility] HEPATITIS A Unknown Completed [facility] Hep B, Adol or Pedi Dosage Unknown Completed [facility] Meningococcal Polysaccharide (groups A, C, Y and W-135) conjugate vaccine (MCV4P) Unknown Completed [facility] Polio (IPV/OPV) Unknown Completed [facility] Varicella (varivax)(chicken pox) Unknown Completed [facility] Meningococcal B, Recombinant Unknown Completed [facility] HPV Unknown Completed [facility] DTaP, Unspecified Formulation Unknown Completed [facility] Influenza Virus Vaccine Quad .5 mL IM 6+ MO (FLUZONE/FLULAVAL/FL UARIX) Unknown Completed [facility] Influenza Virus Vaccine - Whole Unknown Completed [facility] HIB 4 Dose Schedule Unknown Completed [facility] IPV Unknown Completed [facility] TDAP Unknown Completed [facility] Influenza Virus Vaccine Quad IM, Preserv and ABX Free 6 MO-64 YRS (FLUCELVAX) Unknown Completed [facility] Influenza Virus Vaccine Quad IM 3+ YRS Unknown Completed [facility] Meningococcal B, OMV Unknown Completed [facility] SARS-COV-2 COVID-19 MODERNA 12+ YRS VACCINE Unknown Completed [facility] TDAP Unknown Completed [facility] DTAP Unknown Completed [facility] HEPATITIS A Unknown Completed [facility] Hep B, Adol or Pedi Dosage Unknown Completed [facility] Meningococcal Polysaccharide (groups A, C, Y and W-135) conjugate vaccine (MCV4P) Unknown Completed [facility] Polio (IPV/OPV) Unknown Completed [facility] Varicella (varivax)(chicken pox) Unknown Completed [facility] Meningococcal B, Recombinant Unknown Completed [facility] HPV Unknown Completed [facility] DTaP, Unspecified Formulation Unknown Completed [facility] Influenza Virus Vaccine - Whole Unknown Completed [facility] HIB 4 Dose Schedule Unknown Completed [facility] IPV Unknown Completed [facility] Influenza Virus Vaccine Quad IM, Preserv and ABX Free 6 MO-64 YRS (FLUCELVAX) Unknown Completed [facility] Influenza Virus Vaccine Quad IM 3+ YRS Unknown Completed [facility] Meningococcal B, OMV Unknown Completed [facility] SARS-COV-2 COVID-19 MODERNA 12+ YRS VACCINE Unknown Completed [facility] TDAP Unknown Completed [facility] DTAP Unknown Completed [facility] HEPATITIS A Unknown Completed [facility] Hep B, Adol or Pedi Dosage Unknown Completed [facility] Meningococcal Polysaccharide (groups A, C, Y and W-135) conjugate vaccine (MCV4P) Unknown Completed [facility] Polio (IPV/OPV) Unknown Completed [facility] Varicella (varivax)(chicken pox) Unknown Completed [facility] Meningococcal B, Recombinant Unknown Completed [facility] HPV Unknown Completed [facility] DTaP, Unspecified Formulation Unknown Completed [facility] Influenza Virus Vaccine - Whole Unknown Completed [facility] HIB 4 Dose Schedule Unknown Completed [facility] IPV Unknown Completed [facility] Influenza Virus Vaccine Quad IM, Preserv and ABX Free 6 MO-64 YRS (FLUCELVAX) Unknown Completed [facility] Influenza Virus Vaccine Quad IM 3+ YRS Unknown Completed [facility] Meningococcal B, OMV Unknown Completed [facility] SARS-COV-2 COVID-19 MODERNA 12+ YRS VACCINE Unknown Completed [facility] TDAP Unknown Completed [facility] DTAP Unknown Completed [facility] HEPATITIS A Unknown Completed [facility] Hep B, Adol or Pedi Dosage Unknown Completed [facility] Meningococcal Polysaccharide (groups A, C, Y and W-135) conjugate vaccine (MCV4P) Unknown Completed [facility] Polio (IPV/OPV) Unknown Completed [facility] Varicella (varivax)(chicken pox) Unknown Completed [facility] Meningococcal B, Recombinant Unknown Completed [facility] HPV Unknown Completed [facility] DTaP, Unspecified Formulation Unknown Completed [facility] Influenza Virus Vaccine - Whole Unknown Completed [facility] HIB 4 Dose Schedule Unknown Completed [facility] IPV Unknown Completed [facility] Influenza Virus Vaccine Quad IM, Preserv and ABX Free 6 MO-64 YRS (FLUCELVAX) Unknown Completed [facility] Influenza Virus Vaccine Quad IM 3+ YRS Unknown Completed [facility] Meningococcal B, OMV Unknown Completed [facility] SARS-COV-2 COVID-19 MODERNA 12+ YRS VACCINE Unknown Completed [facility] TDAP Unknown Completed [facility] DTAP Unknown Completed [facility] HEPATITIS A Unknown Completed [facility] Hep B, Adol or Pedi Dosage Unknown Completed [facility] Meningococcal Polysaccharide (groups A, C, Y and W-135) conjugate vaccine (MCV4P) Unknown Completed [facility] Polio (IPV/OPV) Unknown Completed [facility] Varicella (varivax)(chicken pox) Unknown Completed [facility] Meningococcal B, Recombinant Unknown Completed [facility] HPV Unknown Completed [facility] DTaP, Unspecified Formulation Unknown Completed [facility] Influenza Virus Vaccine - Whole Unknown Completed [facility] HIB 4 Dose Schedule Unknown Completed [facility] IPV Unknown Completed [facility] Influenza Virus Vaccine Quad IM, Preserv and ABX Free 6 MO-64 YRS (FLUCELVAX) Unknown Completed [facility] Influenza Virus Vaccine Quad IM 3+ YRS Unknown Completed [facility] Meningococcal B, OMV Unknown Completed [facility] SARS-COV-2 COVID-19 MODERNA 12+ YRS VACCINE Unknown Completed [facility] TDAP Unknown Completed [facility] DTAP Unknown Completed [facility] HEPATITIS A Unknown Completed [facility] Hep B, Adol or Pedi Dosage Unknown Completed [facility] Meningococcal Polysaccharide (groups A, C, Y and W-135) conjugate vaccine (MCV4P) Unknown Completed [facility] Polio (IPV/OPV) Unknown Completed [facility] Varicella (varivax)(chicken pox) Unknown Completed [facility] Meningococcal B, Recombinant Unknown Completed [facility] HPV Unknown Completed [facility] DTaP, Unspecified Formulation Unknown Completed [facility] Influenza Virus Vaccine - Whole Unknown Completed [facility] HIB 4 Dose Schedule Unknown Completed [facility] IPV Unknown Completed [facility] Influenza Virus Vaccine Quad IM, Preserv and ABX Free 6 MO-64 YRS (FLUCELVAX) Unknown Completed [facility] Influenza Virus Vaccine Quad IM 3+ YRS Unknown Completed [facility] Meningococcal B, OMV Unknown Completed [facility] SARS-COV-2 COVID-19 MODERNA 12+ YRS VACCINE Unknown Completed [facility] TDAP Unknown Completed [facility] DTAP Unknown Completed [facility] HEPATITIS A Unknown Completed [facility] Hep B, Adol or Pedi Dosage Unknown Completed [facility] Meningococcal Polysaccharide (groups A, C, Y and W-135) conjugate vaccine (MCV4P) Unknown Completed [facility] Polio (IPV/OPV) Unknown Completed [facility] Varicella (varivax)(chicken pox) Unknown Completed [facility] Meningococcal B, Recombinant Unknown Completed [facility] HPV Unknown Completed [facility] DTaP, Unspecified Formulation Unknown Completed [facility] Influenza Virus Vaccine - Whole Unknown Completed [facility] HIB 4 Dose Schedule Unknown Completed [facility] IPV Unknown Completed [facility] Influenza Virus Vaccine Quad IM, Preserv and ABX Free 6 MO-64 YRS (FLUCELVAX) Unknown Completed [facility] Influenza Virus Vaccine Quad IM 3+ YRS Unknown Completed [facility] Meningococcal B, OMV Unknown Completed [facility] SARS-COV-2 COVID-19 MODERNA 12+ YRS VACCINE Unknown Completed [facility] TDAP Unknown Completed [facility] DTAP Unknown Completed [facility] HEPATITIS A Unknown Completed [facility] Hep B, Adol or Pedi Dosage Unknown Completed [facility] Meningococcal Polysaccharide (groups A, C, Y and W-135) conjugate vaccine (MCV4P) Unknown Completed [facility] Polio (IPV/OPV) Unknown Completed [facility] Varicella (varivax)(chicken pox) Unknown Completed [facility] Meningococcal B, Recombinant Unknown Completed [facility] HPV Unknown Completed [facility] DTaP, Unspecified Formulation Unknown Completed [facility] Influenza Virus Vaccine - Whole Unknown Completed [facility] HIB 4 Dose Schedule Unknown Completed [facility] IPV Unknown Completed [facility] Influenza Virus Vaccine Quad IM, Preserv and ABX Free 6 MO-64 YRS (FLUCELVAX) Unknown Completed [facility] Influenza Virus Vaccine Quad IM 3+ YRS Unknown Completed [facility] Meningococcal B, OMV Unknown Completed [facility] SARS-COV-2 COVID-19 MODERNA 12+ YRS VACCINE Unknown Completed [facility] TDAP Unknown Completed [facility] DTAP Unknown Completed [facility] HEPATITIS A Unknown Completed [facility] Hep B, Adol or Pedi Dosage Unknown Completed [facility] Meningococcal Polysaccharide (groups A, C, Y and W-135) conjugate vaccine (MCV4P) Unknown Completed [facility] Polio (IPV/OPV) Unknown Completed [facility] Varicella (varivax)(chicken pox) Unknown Completed [facility] Meningococcal B, Recombinant Unknown Completed [facility] HPV Unknown Completed [facility] DTaP, Unspecified Formulation Unknown Completed [facility] Influenza Virus Vaccine - Whole Unknown Completed [facility] HIB 4 Dose Schedule Unknown Completed [facility] IPV Unknown Completed [facility] Influenza Virus Vaccine Quad IM, Preserv and ABX Free 6 MO-64 YRS (FLUCELVAX) Unknown Completed [facility] Influenza Virus Vaccine Quad IM 3+ YRS Unknown Completed [facility] Meningococcal B, OMV Unknown Completed [facility] SARS-COV-2 COVID-19 MODERNA 12+ YRS VACCINE Unknown Completed [facility] TDAP Unknown Completed [facility] DTAP Unknown Completed [facility] HEPATITIS A Unknown Completed [facility] Hep B, Adol or Pedi Dosage Unknown Completed [facility] Meningococcal Polysaccharide (groups A, C, Y and W-135) conjugate vaccine (MCV4P) Unknown Completed [facility] Polio (IPV/OPV) Unknown Completed [facility] Varicella (varivax)(chicken pox) Unknown Completed [facility] Meningococcal B, Recombinant Unknown Completed [facility] HPV Unknown Completed [facility] DTaP, Unspecified Formulation Unknown Completed [facility] Influenza Virus Vaccine - Whole Unknown Completed [facility] HIB 4 Dose Schedule Unknown Completed [facility] IPV Unknown Completed [facility] Influenza Virus Vaccine Quad IM, Preserv and ABX Free 6 MO-64 YRS (FLUCELVAX) Unknown Completed [facility] Vital Signs Vital Name Observation Time Observation Value Comments S ource Systolic blood pressure 2024-05-14 21:08:00 124 mm[Hg] [facility] Diastolic blood pressure 2024-05-14 21:08:00 76 mm[Hg] [facility] Heart rate 2024-05-14 21:08:00 71 /[facility] Body temperature 2024-05-14 21:08:00 36.22 Manda [facility] Body weight 2024-05-14 21:08:00 60.601 kg [facility] BMI 2024-05-14 21:08:00 25.24 kg/m2 [facility] Systolic blood pressure 2024-04-13 14:20:00 112 mm[Hg] [facility] Diastolic blood pressure 2024-04-13 14:20:00 75 mm[Hg] [facility] Heart rate 2024-04-13 14:20:00 83 /min [facility] Body height 2024-04-13 14:20:00 154.9 cm [facility] Body weight 2024-04-13 14:20:00 58.968 kg [facility] BMI 2024-04-13 14:20:00 24.56 kg/m2 [facility] Systolic blood pressure 2024-03-29 21:11:00 120 mm[Hg] [facility] Diastolic blood pressure 2024-03-29 21:11:00 82 mm[Hg] [facility] Heart rate 2024-03-29 21:11:00 74 /min [facility] Body temperature 2024-03-29 21:11:00 36.72 Manda [facility] Respiratory rate 2024-03-29 21:11:00 18 /min [facility] Body height 2024-03-29 21:11:00 154.9 cm [facility] Body weight 2024-03-29 21:11:00 59.376 kg [facility] BMI 2024-03-29 21:11:00 24.73 kg/m2 [facility] Oxygen saturation in Arterial blood by Pulse oximetry 2024-03-29 21:11:00 98 /min [facility] Systolic blood pressure 2024-03-29 17:58:00 112 mm[Hg] [facility] Diastolic blood pressure 2024-03-29 17:58:00 85 mm[Hg] [facility] Heart rate 2024-03-29 17:58:00 88 /min [facility] Body temperature 2024-03-29 17:58:00 36.78 Manda [facility] Respiratory rate 2024-03-29 17:58:00 17 /min [facility] Body weight 2024-03-29 17:58:00 58.968 kg [facility] BMI 2024-03-29 17:58:00 24.56 kg/m2 [facility] Oxygen saturation in Arterial blood by Pulse oximetry 2024-03-29 17:58:00 98 /min [facility] Systolic blood pressure 2023-12-24 17:57:00 123 mm[Hg] [facility] Diastolic blood pressure 2023-12-24 17:57:00 85 mm[Hg] [facility] Heart rate 2023-12-24 17:57:00 92 /min [facility] Body temperature 2023-12-24 17:57:00 36.61 Manda [facility] Respiratory rate 2023-12-24 17:57:00 16 /min [facility] Body weight 2023-12-24 17:57:00 59.648 kg [facility] BMI 2023-12-24 17:57:00 24.85 kg/m2 [facility] Oxygen saturation in Arterial blood by Pulse oximetry 2023-12-24 17:57:00 100 /min [facility] Systolic blood pressure 2023-12-19 23:36:00 130 mm[Hg] [facility] Diastolic blood pressure 2023-12-19 23:36:00 83 mm[Hg] [facility] Heart rate 2023-12-19 23:36:00 74 /min [facility] Body temperature 2023-12-19 23:36:00 36.67 Manda [facility] Respiratory rate 2023-12-19 23:36:00 15 /min [facility] Body height 2023-12-19 23:36:00 154.9 cm [facility] Body weight 2023-12-19 23:36:00 60.464 kg [facility] BMI 2023-12-19 23:36:00 25.19 kg/m2 [facility] Oxygen saturation in Arterial blood by Pulse oximetry 2023-12-19 23:36:00 98 /min [facility] Systolic blood pressure 2023-12-02 19:19:00 122 mm[Hg] [facility] Diastolic blood pressure 2023-12-02 19:19:00 77 mm[Hg] [facility] Heart rate 2023-12-02 19:19:00 72 /min [facility] Body temperature 2023-12-02 19:19:00 36.22 Manda [facility] Body height 2023-12-02 19:19:00 154.9 cm [facility] Body weight 2023-12-02 19:19:00 60.963 kg [facility] BMI 2023-12-02 19:19:00 25.39 kg/m2 [facility] Systolic blood pressure 2023-11-13 21:42:00 125 mm[Hg] [facility] Diastolic blood pressure 2023-11-13 21:42:00 89 mm[Hg] [facility] Heart rate 2023-11-13 21:42:00 69 /min [facility] Body temperature 2023-11-13 21:42:00 36.33 Manda [facility] Body height 2023-11-13 21:42:00 154.9 cm [facility] Body weight 2023-11-13 21:42:00 61.054 kg [facility] BMI 2023-11-13 21:42:00 25.43 kg/m2 [facility] Systolic blood pressure 2023-10-30 21:51:00 124 mm[Hg] [facility] Diastolic blood pressure 2023-10-30 21:51:00 88 mm[Hg] [facility] Heart rate 2023-10-30 21:51:00 71 /min [facility] Body temperature 2023-10-30 21:51:00 36.44 Manda [facility] Respiratory rate 2023-10-30 21:51:00 18 /min [facility] Body height 2023-10-30 21:51:00 154.9 cm [facility] Body weight 2023-10-30 21:51:00 61.508 kg [facility] BMI 2023-10-30 21:51:00 25.62 kg/m2 [facility] Oxygen saturation in Arterial blood by Pulse oximetry 2023-10-30 21:51:00 98 /min [facility] Systolic blood pressure 2023-10-06 17:04:00 122 mm[Hg] [facility] Diastolic blood pressure 2023-10-06 17:04:00 76 mm[Hg] [facility] Heart rate 2023-10-06 17:03:00 73 /min [facility] Body temperature 2023-10-06 17:03:00 36.5 Manda [facility] Body height 2023-10-06 17:03:00 154.9 cm [facility] Body weight 2023-10-06 17:03:00 62.959 kg [facility] BMI 2023-10-06 17:03:00 26.23 kg/m2 [facility] Systolic blood pressure 2023-10-01 04:52:00 111 mm[Hg] [facility] Diastolic blood pressure 2023-10-01 04:52:00 83 mm[Hg] [facility] Heart rate 2023-10-01 04:52:00 79 /min [facility] Body temperature 2023-10-01 04:52:00 36.78 Manda [facility] Respiratory rate 2023-10-01 04:52:00 16 /min [facility] Body height 2023-10-01 04:52:00 154.9 cm [facility] Body weight 2023-10-01 04:52:00 65.273 kg [facility] BMI 2023-10-01 04:52:00 27.19 kg/m2 [facility] Oxygen saturation in Arterial blood by Pulse oximetry 2023-10-01 04:52:00 99 /min [facility] Systolic blood pressure 2023-09-26 13:00:00 116 mm[Hg] [facility] Diastolic blood pressure 2023-09-26 13:00:00 65 mm[Hg] [facility] Heart rate 2023-09-26 13:00:00 57 /min [facility] Body temperature 2023-09-26 13:00:00 36.83 Manda [facility] Respiratory rate 2023-09-26 13:00:00 16 /min [facility] Oxygen saturation in Arterial blood by Pulse oximetry 2023-09-26 07:40:00 100 /min [facility] Body height 2023-09-24 11:25:00 154.9 cm [facility] Body weight 2023-09-24 11:25:00 69.4 kg [facility] BMI 2023-09-24 11:25:00 28.91 kg/m2 [facility] Systolic blood pressure 2023-09-24 15:30:00 116 mm[Hg] [facility] Diastolic blood pressure 2023-09-24 15:30:00 64 mm[Hg] [facility] Heart rate 2023-09-24 15:30:00 71 /min [facility] Oxygen saturation in Arterial blood by Pulse oximetry 2023-09-24 15:30:00 100 /min [facility] Body temperature 2023-09-24 11:25:00 36.89 Manda [facility] Respiratory rate 2023-09-24 11:25:00 16 /min [facility] Body height 2023-09-24 11:25:00 154.9 cm [facility] Body weight 2023-09-24 11:25:00 69.4 kg [facility] BMI 2023-09-24 11:25:00 28.91 kg/m2 [facility] Systolic blood pressure 2023-09-18 21:50:00 112 mm[Hg] [facility] Diastolic blood pressure 2023-09-18 21:50:00 79 mm[Hg] [facility] Heart rate 2023-09-18 21:50:00 79 /min [facility] Body temperature 2023-09-18 21:50:00 36.44 Manda [facility] Body height 2023-09-18 21:50:00 160 cm [facility] Body weight 2023-09-18 21:50:00 68.947 kg [facility] BMI 2023-09-18 21:50:00 26.93 kg/m2 [facility] Systolic blood pressure 2023-09-08 15:49:00 112 mm[Hg] [facility] Diastolic blood pressure 2023-09-08 15:49:00 73 mm[Hg] [facility] Heart rate 2023-09-08 15:49:00 94 /min [facility] Body temperature 2023-09-08 15:49:00 36.33 Manda [facility] Respiratory rate 2023-09-08 15:49:00 17 /min [facility] Body height 2023-09-08 15:49:00 160 cm [facility] Body weight 2023-09-08 15:49:00 69.037 kg [facility] BMI 2023-09-08 15:49:00 26.96 kg/m2 [facility] Systolic blood pressure 2023-08-25 20:22:00 108 mm[Hg] [facility] Diastolic blood pressure 2023-08-25 20:22:00 70 mm[Hg] [facility] Heart rate 2023-08-25 20:22:00 81 /min [facility] Body temperature 2023-08-25 20:22:00 36.28 Manda [facility] Respiratory rate 2023-08-25 20:22:00 18 /min [facility] Body height 2023-08-25 20:22:00 154.9 cm [facility] Body weight 2023-08-25 20:22:00 67.042 kg [facility] BMI 2023-08-25 20:22:00 27.93 kg/m2 [facility] Oxygen saturation in Arterial blood by Pulse oximetry 2023-08-25 20:22:00 98 /min [facility] Systolic blood pressure 2023-08-05 21:07:00 111 mm[Hg] [facility] Diastolic blood pressure 2023-08-05 21:07:00 73 mm[Hg] [facility] Heart rate 2023-08-05 21:07:00 77 /min [facility] Body temperature 2023-08-05 21:07:00 36.28 Manda [facility] Body height 2023-08-05 21:07:00 154.9 cm [facility] Body weight 2023-08-05 21:07:00 67.767 kg [facility] BMI 2023-08-05 21:07:00 28.23 kg/m2 [facility] Systolic blood pressure 2023-07-22 20:54:00 99 mm[Hg] [facility] Diastolic blood pressure 2023-07-22 20:54:00 76 mm[Hg] [facility] Heart rate 2023-07-22 20:54:00 86 /min [facility] Body temperature 2023-07-22 20:54:00 36.39 Manda [facility] Body height 2023-07-22 20:54:00 154.9 cm [facility] Body weight 2023-07-22 20:54:00 64.411 kg [facility] BMI 2023-07-22 20:54:00 26.83 kg/m2 [facility] Systolic blood pressure 2023-07-08 20:45:00 90 mm[Hg] [facility] Diastolic blood pressure 2023-07-08 20:45:00 51 mm[Hg] [facility] Heart rate 2023-07-08 20:45:00 76 /min [facility] Body temperature 2023-07-08 20:45:00 36.67 Manda [facility] Respiratory rate 2023-07-08 20:45:00 16 /min [facility] Body height 2023-07-08 20:45:00 154.9 cm [facility] Body weight 2023-07-08 20:45:00 62.778 kg [facility] BMI 2023-07-08 20:45:00 26.15 kg/m2 [facility] Oxygen saturation in Arterial blood by Pulse oximetry 2023-07-08 20:45:00 97 /min [facility] Systolic blood pressure 2023-06-10 15:39:00 105 mm[Hg] [facility] Diastolic blood pressure 2023-06-10 15:39:00 69 mm[Hg] [facility] Heart rate 2023-06-10 15:39:00 82 /min [facility] Respiratory rate 2023-06-10 15:39:00 18 /min [facility] Body height 2023-06-10 15:39:00 154.9 cm [facility] Body weight 2023-06-10 15:39:00 60.328 kg [facility] BMI 2023-06-10 15:39:00 25.13 kg/m2 [facility] Systolic blood pressure 2023-05-12 21:05:00 103 mm[Hg] [facility] Diastolic blood pressure 2023-05-12 21:05:00 66 mm[Hg] [facility] Heart rate 2023-05-12 21:05:00 86 /min [facility] Respiratory rate 2023-05-12 21:05:00 18 /min [facility] Body height 2023-05-12 21:05:00 154.9 cm [facility] Body weight 2023-05-12 21:05:00 57.153 kg [facility] BMI 2023-05-12 21:05:00 23.81 kg/m2 [facility] Systolic blood pressure 2023-04-09 16:37:00 104 mm[Hg] [facility] Diastolic blood pressure 2023-04-09 16:37:00 61 mm[Hg] [facility] Heart rate 2023-04-09 16:37:00 94 /min [facility] Body temperature 2023-04-09 16:37:00 36.72 Manda [facility] Respiratory rate 2023-04-09 16:37:00 18 /min [facility] Body height 2023-04-09 16:37:00 157.5 cm [facility] Body weight 2023-04-09 16:37:00 56.246 kg [facility] BMI 2023-04-09 16:37:00 22.68 kg/m2 [facility] Systolic blood pressure 2023-03-12 16:47:00 130 mm[Hg] [place] [facility] Diastolic blood pressure 2023-03-12 16:47:00 82 mm[Hg] [facility] Heart rate 2023-03-12 16:47:00 94 /min [facility] Respiratory rate 2023-03-12 16:47:00 18 /min [facility] Body height 2023-03-12 16:47:00 157.5 cm [facility] Body weight 2023-03-12 16:47:00 55.339 kg [facility] BMI 2023-03-12 16:47:00 22.31 kg/m2 [facility] Systolic blood pressure 2023-02-12 16:43:00 116 mm[Hg] [facility] Diastolic blood pressure 2023-02-12 16:43:00 75 mm[Hg] [facility] Heart rate 2023-02-12 16:43:00 88 /min [facility] Respiratory rate 2023-02-12 16:43:00 18 /min [facility] Body height 2023-02-12 16:43:00 157.5 cm [facility] Body weight 2023-02-12 16:43:00 55.792 kg [facility] BMI 2023-02-12 16:43:00 22.50 kg/m2 [facility] Systolic blood pressure 2022-12-10 20:10:00 128 mm[Hg] [facility] Diastolic blood pressure 2022-12-10 20:10:00 78 mm[Hg] [facility] Heart rate 2022-12-10 20:10:00 83 /min [facility] Respiratory rate 2022-12-10 20:10:00 18 /min [facility] Body height 2022-12-10 20:10:00 157.5 cm [facility] Body weight 2022-12-10 20:10:00 56.246 kg [facility] BMI 2022-12-10 20:10:00 22.68 kg/m2 [facility] Procedures Procedure Date / Time Performed Performing Clinician Source URINE CULTURE 2024-05-14 21:10:00 Marin Singleton [facility] POCT URINALYSIS W/O SPECIFIC GRAVITY 2024-05-14 00:00:00 Marin Singleton [facility] POCT URINALYSIS W/O SPECIFIC GRAVITY 2024-04-13 00:00:00 Marin Singleton [facility] POCT TEST 2024-03-29 [facility]:00[facility] 2023-12-19 23:42:00 Elliott Karimi [facility] POCT TEST 2023-12-19 23:40:00 Elliott Karimi [facility] CONSENT FOR CONTRACEPTION 2023-11-13 06:01:00 Doctor Unassigned, [place] [facility] POCT TEST 2023-11-13 00:00:00 TroyColt [facility] CONSENT/REFUSAL FOR DIAGNOSIS AND TREATMENT 2023-10-30 06:01:00 Doctor Unassigned, [place] [facility] POCT TEST 2023-10-30 00:00:00 VincentColt [facility] NOTICE OF PRIVACY PRACTICES 2023-10-01 04:06:34 Doctor Unassigned, [place] [facility] CONSENT/REFUSAL FOR DIAGNOSIS AND TREATMENT 2023-10-01 04:06:10 Doctor Unassigned, [place] [facility] CBC WITH DIFF 2023-09-25 10:08:00 VincentColt [facility] CBC WITH DIFF 2023-09-25 10:08:00 Vincent [facility] SECTION 2023-09-24 12:51:00 Vincent Colt [facility] SECTION 2023-09-24 12:51:00 TroyColt [facility] CBC WITH DIFF 2023-09-24 11:50:00 Troy [facility] HEPATITIS B SURFACE ANTIGEN 2023-09-24 11:50:00 Troy [facility] HB ABO GROUPING 2023-09-24 11:50:00 [facility] RHO (D) IMMUNE GLOBULIN 2023-09-24 11:50:00 Vincent [facility] ADC OR FLY ONLY - RPR 2023-09-24 11:50:00 Vincent [facility] HIV 1/2 AG-AB WITH REFLEX 2023-09-24 11:50:00 Troy [facility] CBC WITH DIFF 2023-09-24 11:50:00 Troy [facility] HEPATITIS B SURFACE ANTIGEN 2023-09-24 11:50:00 Troy [facility] HB ABO GROUPING 2023-09-24 11:50:00 Troy [facility] RHO (D) IMMUNE GLOBULIN 2023-09-24 11:50:00 VincentColt [facility] ADC OR FLY ONLY - RPR 2023-09-24 11:50:00 VincentColt [facility] HIV 1/2 AG-AB WITH REFLEX 2023-09-24 11:50:00 VincentColt [facility] CONSENT/REFUSAL FOR DIAGNOSIS AND TREATMENT 2023-09-18 22:28:24 Doctor Unassigned, [place] [facility] CONSENT/REFUSAL FOR DIAGNOSIS AND TREATMENT 2023-09-18 22:28:24 Doctor Unassigned, [place] [facility] ASSIGNMENT OF BENEFITS 2023-09-18 22:26:05 Docto r Unassigned, [place] [facility] ASSIGNMENT OF BENEFITS 2023-09-18 22:26:05 Docto r Unassigned, [place] [facility] POCT URINALYSIS W/O SPECIFIC GRAVITY 2023-09-18 00:00:00 VincentClot [facility] >14 WEEKS US LIMITED 2023-09-08 16:00:45 VincentColt [facility] DSU PRE-OP 2023-09-08 06:01:00 Doctor Unass igned, [place] [facility] POCT URINALYSIS W/O SPECIFIC GRAVITY 2023-09-08 00:00:00 VincentColt [facility] POCT URINALYSIS W/O SPECIFIC GRAVITY 2023-08-25 00:00:00 Vincent Colt [facility] POCT URINALYSIS W/O SPECIFIC GRAVITY 2023-08-05 00:00:00 VincentColt [facility] POCT URINALYSIS W/O SPECIFIC GRAVITY 2023-07-22 00:00:00 Vincent Colt [facility] TDAP VACCINE, >11 YRS, IM 2023-07-08 20:56:44 Varghese [facility] FLU VACC (), 6 MO-64 YRS, .5ML, IM, QUAD (FLUCELVAX) 2023-07-08 20:56:44 Trizahira [facility] POCT URINALYSIS W/O SPECIFIC GRAVITY 2023-07-08 00:00:00 Shikha Kwong [facility] POCT URINALYSIS W/O SPECIFIC GRAVITY 2023-06-10 00:00:00 Shikha Kwong [facility] SECOND AND THIRD TRIMESTER ULTRASOUND 2023-05-13 18:39:00 Shikha Kwong [facility] POCT URINALYSIS W/O SPECIFIC GRAVITY 2023-05-12 00:00:00 Shikha Kwong [facility] POCT URINALYSIS W/O SPECIFIC GRAVITY 2023-04-09 00:00:00 Shikha Kwong [facility] SCANNED LAB RESULTS 2023-03-13 05:01:00 Doctor Jones lynch, [place] [facility] POCT URINALYSIS W/O SPECIFIC GRAVITY 2023-03-12 00:00:00 Shikha Kwong [facility] US FIRST TRIMESTER LESS THAN 14 WEEKS WITH TRANSVAGINAL 2023-02-18 13:28:05 [facility] POCT TEST 2023-02-12 00:00:00 Riya Kwong [facility] POCT URINALYSIS W/O SPECIFIC GRAVITY 2023-02-12 00:00:00 [facility] GALV ONLY - VAGINAL PATHOGENS BY NUCLEIC ACID TESTING 2022-12-10 20:20:00 [facility] CONSENT/REFUSAL FOR DIAGNOSIS AND TREATMENT 2022-12-10 19:58:44 Doctor Unassigned, [place] [facility] Encounters Start Date/Time End Date/Time Encounter Type Admission Type Attending [facility] Facility Care Department Encounter ID Source 2024-05-14 15:45:00 2024-05-14 16:18:17 Outpatient R MARIN SINGLETON [facility] [id number] [facility] 2024-05-14 15:45:00 2024-05-14 16:18:17 [facility] [id number] 350.1.13.10 [id number] [id number] [facility] 2024-04-01 00:00:00 2024-05-08 18:25:40 Patient Secure Msg Doctor Unassigned, [place] Doctor Unassigned, [place] [facility] [id number] 350.1.13.10 4.2.7.2.686 [id number] [facility] 2024-05-05 16:30:00 2024-05-05 16:30:00 Outpatient MIRIAM ABURTO [facility] [id number] [facility] 2024-04-28 13:30:00 2024-04-28 13:30:00 Outpatient R ALEX WILSON [facility] [id number] [facility] 2024-04-16 00:00:00 2024-04-17 04:04:34 Telephone Colt Troy [facility] [id number] 350.1.13.10 4.2.7.2.686 [id number] [facility] 2024-04-16 00:00:00 2024-04-16 19:50:38 Marin Ontiveros [facility] [id number] 350.1.13.10 4.2.7.2.686 [id number] [facility] 2024-04-15 00:00:00 2024-04-15 12:16:39 Nurse Triage Meredith Moya [facility] [id number] 350.1.13.10 4.2.7.2.686 [id number] [facility] 2024-04-13 09:00:00 2024-04-13 09:42:58 Outpatient MRAIN ROSS [facility] [id number] [facility] 2024-04-13 09:00:00 2024-04-13 09:42:58 Office Visit Marin Singleton [facility] [id number] 350.1.13.10 4.2.7.2.686 [id number] 134 [id number] [facility] 2024-03-29 16:00:00 2024-03-29 16:24:53 Outpatient R ALEX WILSON [facility] [id number] [facility] 2024-03-29 16:00:00 2024-03-29 16:24:53 Office Visit Alex Wilson [facility] [id number] 350.1.13.10 4.2.7.2.686 [id number] [facility] 2024-03-29 13:15:00 2024-03-29 13:30:00 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 Lab, Ang - Ke Unknown, Attending Franca Dinh [facility] [id number] 350.1.13.10 4.2.7.2.686 [id number] [facility] 2024-03-29 12:20:00 2024-03-29 13:11:27 Urgent Care Franca Dinh, Attending [facility] [id number] 350.1.13.10 4.2.7.2.686 [id number] [facility] 2024-01-01 10:21:17 2024-01-01 10:21:17 Outpatient [facility] [id number] Riley Gaviria 2023-12-24 12:40:00 2023-12-24 13:28:08 Outpatient R ELLIOTT KARIMI [facility] [id number] [facility] 2023-12-24 12:40:00 2023-12-24 13:00:00 Urgent Care Elliott Karimi Unknown, Attending [facility] 1..840.114 350.1.13.10 4.2.7.2.686 [id number] 370 [id number] [facility] 2023-12-22 00:00:00 2023-12-22 00:00:00 Patient Secure Msg Doctor Unassigned, [place] [facility] 1..840.114 350.1.13.10 4.2.7.2.686 [id number] 044 [id number] [facility] 2023-12-19 18:20:00 2023-12-19 18:57:04 Outpatient R ELLIOTT KARIMI [facility] [id number] [facility] 2023-12-19 18:20:00 2023-12-19 18:40:00 Urgent Care Elliott Karimi Unknown, Attending [facility] 1..840.114 350.1.13.10 4.2.7.2.686 [id number] [facility] 2023-12-02 13:30:00 2023-12-02 13:36:44 Outpatient R COLT TROY [facility] [id number] [facility] 2023-12-02 13:30:00 2023-12-02 13:36:44 Office Visit Colt Troy [facility] 1..840.114 350.1.13.10 4.2.7.2.686 [id number] 134 [id number] [facility] 2023-11-27 15:30:00 2023-11-27 15:30:00 Outpatient R COLT TROY [facility] [id number] [facility] 2023-11-20 13:00:00 2023-11-20 13:00:00 Outpatient COLT SOTO [facility] [id number] [facility] 2023-11-13 15:30:00 2023-11-13 15:59:22 Outpatient R COLT TROY [facility] [id number] [facility] 2023-11-13 15:30:00 2023-11-13 15:59:22 Office Visit Colt Troy [facility] 1.84.114 350.1.13.10 4.2.7.2.686 [id number] 134 [id number] [facility] 2023-11-13 00:00:00 2023-11-13 00:00:00 Orders Only Doctor Unassigned, [place] [facility] 1..114 350.1.13.10 4.2.7.2.686 [id number] 009 [id number] [facility] 2023-11-10 00:00:00 2023-11-10 00:00:00 [facility] 1.84.114 350.1.13.10 4.2.7.2.686 [id number] 134 [id number] [facility] 2023-11-04 00:00:00 2023-11-04 00:00:[address] [facility] 1..114 350.1.13.10 4.2.7.2.686 [id number] 095 [id number] [facility] 2023-10-30 15:30:00 2023-10-30 16:19:57 Outpatient R COLT TROY [facility] [id number] [facility] 2023-10-30 15:30:00 2023-10-30 16:19:57 Routine Visit Colt Troy [facility] 1.84.114 350.1.13.10 4.2.7.2.686 [id number] 134 [id number] [facility] 2023-10-30 00:00:00 2023-10-30 00:00:00 Orders Only Doctor Unassigned, [place] [facility] 1.20.114 350.1.13.10 4.2.7.2.686 [id number] 009 [id number] [facility] 2023-10-23 13:00:00 2023-10-23 13:00:00 Outpatient R COLT TROY [facility] [id number] [facility] 2023-10-06 11:15:00 2023-10-06 11:15:00 Routine Visit Colt Troy [facility] 1..840.114 350.1.13.10 4.2.7.2.686 [id number] 134 [id number] [facility] 2023-10-06 11:15:00 2023-10-06 11:12:34 Outpatient R COLT TROY [facility] [id number] [facility] 2023-09-30 22:56:00 2023-10-01 00:22:00 Emergency X WILLY DUNN [facility] ERT [id number] [facility] 2023-09-30 22:56:00 2023-10-01 00:22:00 Emergency Willy Dunn [facility] 1.2.840.114 350.1.13.10 4.2.7.2.686 [id number] 084 [id number] [facility] 2023-10-01 00:00:00 2023-10-01 00:00:00 Patient Secure Msg Doctor Unassigned, [place] [facility] 1.2.840.114 350.1.13.10 4.2.7.2.686 [id number] 134 [id number] [facility] 2023-09-24 05:05:00 2023-09-26 11:00:00 Inpatient P COLT TROY [facility] WILLIAM [id number] [facility] 2023-09-24 05:05:00 2023-09-26 11:00:00 Hospital Encounter Troy, Colt [facility] 1.2.840.114 350.1.13.10 4.2.7.2.686 [id number] 083 [id number] [facility] 2023-09-24 07:50:00 2023-09-24 09:32:00 Surgery Colt Troy [facility] 1.2840.114 350.1.13.10 4.2.7.2.686 [id number] [id number] [facility] 2023-09-18 15:45:00 2023-09-18 16:04:24 Outpatient R COLT TROY [facility] [id number] [facility] 2023-09-18 15:45:00 2023-09-18 16:04:24 Routine Visit Colt Troy [facility] 1.2.840.114 350.1.13.10 4.2.7.2.686 [id number] 134 [id number] [facility] 2023-09-08 11:15:00 2023-09-08 11:30:00 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 2, Adc Lab Colt Troy [facility] 1.2.840.114 350.1.13.10 4.2.7.2.686 [id number] [facility] 2023-09-08 11:15:00 2023-09-08 11:15:00 Outpatient R COLT TROY [facility] [id number] [facility] 2023-09-08 09:30:00 2023-09-08 09:45:00 Routine Visit Colt Troy [facility] 1.2.840.114 350.1.13.10 4.2.7.2.686 [id number] 134 [id number] [facility] 2023-09-08 00:00:00 2023-09-08 00:00:00 Orders Only Doctor Unassigned, [place] [facility] 1.2.840.114 350.1.13.10 4.2.7.2.686 [id number] 009 [id number] [facility] 2023-09-04 00:00:00 2023-09-04 00:00:00 Telephone Colt Troy [facility] 1.2840.114 350.1.13.10 4.2.7.2.686 [id number] 134 [id number] [facility] 2023-08-25 14:15:00 2023-08-25 14:38:49 Outpatient R COLT TROY [facility] [id number] [facility] 2023-08-25 14:15:00 2023-08-25 14:38:49 [facility]ine [facility]t [facility] 1.2.840.114 350.1.13.10 4.2.7.2.686 [id number] 134 [id number] [facility] 2023-08-20 09:30:00 2023-08-20 09:30:00 Outpatient R COLT TROY [facility] [id number] [facility] 2023-08-05 15:00:00 2023-08-05 15:15:00 Routine Visit Colt Troy [facility] 1..840.114 350.1.13.10 4.2.7.2.686 [id number] 134 [id number] [facility] 2023-08-05 15:00:00 2023-08-05 15:00:00 Outpatient R COLT TROY [facility] [id number] [facility] 2023-07-22 16:00:00 2023-07-22 16:16:55 Outpatient R COLT TROY [facility] [id number] [facility] 2023-07-22 16:00:00 2023-07-22 16:16:55 [facility]ine [facility] 1.2.840.114 350.1.13.10 4.2.7.2.686 [id number] 134 [id number] [facility] 2023-07-08 16:00:00 2023-07-08 16:08:20 Outpatient R SHIKHA KWONG [facility] [id number] [facility] 2023-07-08 16:00:00 2023-07-08 16:08:20 [facility] 1.2.840.114 350.1.13.10 4.2.7.2.686 [id number] 134 [id number] [facility] 2023-06-13 07:30:00 2023-06-13 10:07:56 Outpatient R SHIKHA KWONG [facility] [id number] [facility] 2023-06-13 07:30:00 2023-06-13 07:45:00 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 Lab, Ang - [facility] M[facility]SA[facility] 1.2.840.114 350.1.13.10 4.2.7.2.686 [id number] 353 [id number] [facility] 2023-06-10 10:30:00 2023-06-10 11:14:41 Routine Visit [facility] 1.2.840.114 350.1.13.10 4.2.7.2.686 [id number] 134 [id number] [facility] 2023-06-10 10:30:00 2023-06-10 11:14:41 Outpatient R SHIKHA KWONG [facility] [id number] [facility] 2023-05-14 00:00:00 2023-05-14 00:00:00 Case Management [facility] 1.2.840.114 350.1.13.10 4.2.7.2.686 [id number] 134 [id number] [facility] 2023-05-13 13:00:00 2023-05-13 14:00:00 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 Ultrasound, Qamar-m Enrrique Brady [facility] RUBBER PROCESS HAND [facility] 1.2.840.114 350.1.13.10 4.2.7.2.686 [id number] [facility] 2023-05-13 13:00:00 2023-05-13 13:00:00 Outpatient P ENRRIQUE BRADY [facility] [id number] [facility] 2023-05-12 16:00:00 2023-05-12 16:18:57 Outpatient R SHIKHA KWONG CHERYAL [facility] [id number] [facility] 2023-05-12 16:00:00 2023-05-12 16:18:57 Routine Visit Shikha Kwong [facility] 1..840.114 350.1.13.10 4.2.7.2.686 [id number] 134 [id number] [facility] 2023-05-07 13:00:00 2023-05-07 13:00:00 Outpatient R SHIKHA KWONG CHERYAL [facility] [id number] [facility] 2023-04-10 13:00:00 2023-04-10 13:00:00 Outpatient R DANA SHIELDS [facility] [id number] [facility] 2023-04-09 11:30:00 2023-04-09 12:09:51 Outpatient R SHIKHA KWONG CHERYAL [facility] [id number] [facility] 2023-04-09 11:30:00 2023-04-09 12:09:51 Routine Visit Varghese [facility] 1.2.840.114 350.1.13.10 4.2.7.2.686 [id number] 134 [id number] [facility] 2023-03-26 00:00:00 2023-03-26 00:00:00 [facility] 1.2.840.114 350.1.13.10 4.2.7.2.686 [id number] 134 [id number] [facility] 2023-03-13 08:00:00 2023-03-13 08:15:00 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 Lab, Qamar Dempsey [facility] MELISSA?[facility] 1.2840.114 350.1.13.10 4.2.7.2.686 [id number] 353 [id number] [facility] 2023-03-13 08:00:00 2023-03-13 08:00:00 Outpatient R [facility] [id number] [facility] 2023-03-13 00:00:00 2023-03-13 00:00:00 Orders Only Doctor Unassigned, [place] [facility] 1.2.840.114 350.1.13.10 4.2.7.2.686 [id number] [id number] [facility] 2023-03-12 11:30:00 2023-03-12 12:08:24 Outpatient R SHIKHA KWONG [facility] [id number] [facility] 2023-03-12 11:30:00 2023-03-12 12:08:24 Routine Visit Shikha Kwong [facility] 1.2840.114 350.1.13.10 4.2.7.2.686 [id number] 134 [id number] [facility] 2023-03-06 00:00:00 2023-03-06 00:00:00 Telephone Varg[facility]se [facility] 1.2.840.114 350.1.13.10 4.2.7.2.686 [id number] 134 [id number] [facility] 2023-02-19 00:00:00 2023-02-19 00:00:00 Case Management [facility] 1.2.840.114 350.1.13.10 4.2.7.2.686 [id number] 134 [id number] [facility] 2023-02-18 07:44:51 2023-02-18 23:59:00 Outpatient R VARGHESE [facility]IKHA [facility] [id number] [facility] 2023-02-18 07:44:51 2023-02-18 23:59:00 Hospital [facility] 1.2.840.114 350.1.13.10 4.2.7.2.686 [id number] [facility] 2023-02-12 13:00:00 2023-02-12 13:15:00 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 Lab, Qamar - Ke [facility] 1.2.840.114 350.1.13.10 4.2.7.2.686 [id number] 353 [id number] [facility] 2023-02-12 11:30:00 2023-02-12 11:57:23 Outpatient R SHIKHA KWONG [facility] [id number] [facility] 2023-02-12 11:30:00 2023-02-12 11:57:23 [facility] 1.2.840.114 350.1.13.10 4.2.7.2.686 [id number] 134 [id number] [facility] 2022-12-10 15:00:00 2022-12-10 15:34:24 Outpatient R SHIKHA KWONG [facility] [id number] [facility] 2022-12-10 15:00:00 2022-12-10 15:34:24 Office Visit [facility] 1.2.840.114 350.1.13.10 4.2.7.2.686 [id number] 134 [id number] [facility] 2022-12-10 00:00:00 2022-12-10 00:00:00 Telephone Westonduran [facility] 1.2.840.114 350.1.13.10 4.2.7.2.686 [id number] 134 [id number] [facility] 2022-12-10 00:00:00 2022-12-10 00:00:00 Orders Only Doctor Unassigned, [place] [facility] 1.2.840.114 350.1.13.10 4.2.7.2.686 [id number] [facility] 2022-11-27 00:00:00 2022-11-27 00:00:00 Telephone Trudy Leslie [facility] 1.2.840.114 350.1.13.10 4.2.7.2.686 [id number] 134 [id number] [facility] 2022-09-04 10:42:39 2022-09-04 10:42:39 Outpatient [facility] [id number] Riley Gaviria 2022-08-29 16:04:48 2022-08-29 16:04:48 Outpatient [facility] [id number] Riley Gaviria 2022-04-22 00:00:00 2022-04-22 00:00:00 Telephone Quintin Stanley [facility] 1.840.114 350.1.13.10 4.2.7.2.686 [id number] 134 [id number] [facility] 2022-04-05 13:00:00 2022-04-05 13:26:14 Outpatient R QUINTIN STANLEY [facility] [id number] [facility] 2022-04-05 13:00:00 2022-04-05 13:26:14 Routine Visit Quintin Stanley [facility] 1.2.840.114 350.1.13.10 4.2.7.2.686 [id number] 134 [id number] [facility] 2022-04-05 13:00:00 2022-04-05 13:26:14 Outpatient R QUINTIN STANLEY [facility] [id number] [facility] 2022-04-02 11:15:00 2022-04-02 11:15:00 Outpatient R QUINTIN STANLEY [facility] [id number] [facility] 2022-03-14 13:00:00 2022-03-14 13:00:00 Outpatient R QUINTIN STANLEY [facility] [id number] [facility] 2022-03-14 13:00:00 2022-03-14 13:00:00 Outpatient R QUINTIN STANLEY [facility] [id number] [facility] 2022-03-05 11:15:00 2022-03-05 11:56:41 Routine Visit Shikha Kwong Quintin Stanley [facility] 1..840.114 350.1.13.10 4.2.7.2.686 [id number] 134 [id number] [facility] 2022-03-05 11:15:00 2022-03-05 11:56:41 Outpatient R SHIKHA KWONG CHERYAL [facility] [id number] [facility] 2022-03-05 11:15:00 2022-03-05 11:15:00 Outpatient R SASKIASARISHIKHA GARZON WESTONSHIKHA GARZON [facility] [id number] [facility] 2022-02-26 08:15:00 2022-02-26 08:15:00 Outpatient R QUINTIN STANLEY [facility] [id number] [facility] 2022-02-21 12:27:00 2022-02-23 14:25:00 Hospital Encounter Quintin Stanley [facility] 1.2.840.114 350.1.13.10 4.2.7.2.686 [id number] [facility] 2022-02-21 12:27:00 2022-02-23 14:25:00 Inpatient P QUINTIN STANLEY [facility] [id number] [facility] 2022-02-23 00:00:00 2022-02-23 00:00:00 Telephone Quintin Stanley [facility] 1.2.840.114 350.1.13.10 4.2.7.2.686 [id number] 083 [id number] [facility] 2022-02-22 02:22:00 2022-02-22 04:00:00 Anesthesia Event [facility] [place] 1.2.840.114 350.1.13.10 4.2.7.2.686 [id number] 022 [id number] [facility] 2022-02-22 02:22:00 2022-02-22 04:00:00 Anesthesia Event [facility] [place] 1.2.840.114 350.1.13.10 4.2.7.2.686 [id number] 022 [id number] [facility] 2022-02-22 02:22:00 2022-02-22 04:00:00 Anesthesia Event [facility] [place] 1.2.840.114 350.1.13.10 4.2.7.2.686 [id number] 022 [id number] [facility] 2022-02-22 02:22:00 2022-02-22 04:00:00 [facility] 1.2.840.114 350.1.13.10 4.2.7.2.686 [id number] 013 [id number] [facility] 2022-02-22 02:22:00 2022-02-22 04:00:00 [facility] 1.2.840.114 350.1.13.10 4.2.7.2.686 [id number] 013 [id number] [facility] 2022-02-22 02:00:00 2022-02-22 03:41:00 Surgery Quintin Stanley [facility] 1.2.840.114 350.1.13.10 4.2.7.2.686 [id number] 013 [id number] [facility] 2022-02-22 02:00:00 2022-02-22 03:41:00 Surgery Quintin Stanley [facility] 1.2.840.114 350.1.13.10 4.2.7.2.686 [id number] 013 [id number] [facility] 2022-02-22 02:00:00 2022-02-22 03:41:00 Surgery Quintin Stanley 1.2.840.1 05819.1.1 3.104.2.7 .3.298314 .8 [id number] [facility] 2022-02-21 17:30:00 2022-02-21 17:30:00 [facility] 1.2.840.114 350.1.13.10 4.2.7.2.686 [id number] 083 [id number] [facility] 2022-02-21 17:30:00 2022-02-21 17:30:00 Anesthesia Event Felix [facility] 1.2.840.114 350.1.13.10 4.2.7.2.686 [id number] 013 [id number] [facility] 2022-02-21 17:30:00 2022-02-21 17:30:00 Anesthesia Event Felix [facility] 1.2.840.114 350.1.13.10 4.2.7.2.686 [id number] 013 [id number] [facility] 2022-02-21 17:30:00 2022-02-21 17:30:00 Anesthesia Event Felix [facility] [place] 1.2.840.114 350.1.13.10 4.2.7.2.686 [id number] 022 [id number] [facility] 2022-02-21 17:30:00 2022-02-21 17:30:00 [facility] 1.2.840.114 350.1.13.10 4.2.7.2.686 [id number] 022 [id number] [facility] 2022-02-21 13:45:00 2022-02-21 13:45:00 Routine Visit Quintin Stanley 1.2.840.1 63262.1.1 3.104.2.7 .3.456271 .8 [id number] [facility] 2022-02-21 12:27:00 2022-02-21 12:27:00 Inpatient P QUINTIN STANLEY [facility] [id number] [facility] 2022-02-21 13:45:00 2022-02-21 11:01:46 Outpatient R QUINTIN STANLEY [facility] [id number] [facility] 2022-02-21 13:45:00 2022-02-21 11:01:46 Outpatient R QUINTIN STANLEY [facility] [id number] [facility] 2022-02-21 00:00:00 2022-02-21 00:00:00 Travel 1.2.840.1 55221.1.1 3.104.2.7 .3.195456 .8 1.2.840.114 350.1.13.10 4.2.7.3.698 084.8 [id number] [facility] 2022-02-21 00:00:00 2022-02-21 00:00:00 Orders Only Doctor Unassigned, [place] [facility] 1.2.840.114 350.1.13.10 4.2.7.2.686 [id number] 009 [id number] [facility] 2022-02-21 00:00:00 2022-02-21 00:00:00 Telephone Grecia Stanleyn 1.2.840.1 29815.1.1 3.104.2.7 .3.753935 .8 [id number] [facility] 2022-02-18 09:55:00 2022-02-18 11:50:00 Outpatient P GRECIA STANLEYN [facility] [id number] [facility] 2022-02-18 09:55:00 2022-02-18 11:50:00 Hospital Encounter Grecia Stanleyn 1.2.840.1 73256.1.1 3.104.2.7 .3.006762 .8 [id number] [facility] 2022-02-18 08:00:00 2022-02-18 08:48:55 Outpatient R JADENGRECIAN [facility] [id number] [facility] 2022-02-18 08:00:00 2022-02-18 08:48:55 Routine Visit Grecia Stanleyn 1.2.840.1 55148.1.1 3.104.2.7 .3.307437 .8 [id number] [facility] 2022-02-17 16:08:00 2022-02-17 19:36:00 Outpatient P QUINTIN STANLEY [facility] [id number] [facility] 2022-02-17 16:08:00 2022-02-17 19:36:00 Outpatient P QUINTIN STANLEY [facility] [id number] [facility] 2022-02-17 16:08:00 2022-02-17 19:36:00 Hospital Encounter Quintin Stanley 1.2.840.1 56516.1.1 3.104.2.7 .3.882649 .8 [id number] [facility] 2022-02-11 15:00:00 2022-02-11 16:41:17 Outpatient R SHIKHA KWONG CHERY[facility] [id number] [facility] 2022-02-11 15:00:00 2022-02-11 16:41:17 Routine Visit Shikha Kwong 1.2.840.1 21019.1.1 3.104.2.7 .3.915416 .8 [id number] [facility] 2022-02-11 09:15:00 2022-02-11 09:30:00 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 Quintin Stanley Misty, [facility] 1.2.840.1 01776.1.1 3.104.2.7 .3.692463 .8 [id number] [facility] 2022-02-04 15:00:00 2022-02-04 16:06:14 Outpatient R QUINTIN STANLEY [facility] [id number] [facility] 2022-02-04 15:00:00 2022-02-04 16:06:14 Routine Visit Quintin Stanley 1.2.840.1 30886.1.1 3.104.2.7 .3.477946 .8 [id number] [facility] 2022-02-04 00:00:00 2022-02-04 00:00:00 Orders Only Doctor Unassigned, [place] 1.2.840.1 12943.1.1 3.104.2.7 .3.366489 .8 [id number] [facility] 2022-02-01 16:00:00 2022-02-01 16:00:00 Outpatient R WESTONDURAN YUEGALDINO WESTONDURAN SHIKHA [facility] [id number] [facility] 2022-01-18 16:00:00 2022-01-18 16:50:02 Outpatient R [facility] YUEGALDINO [facility] [id number] [facility] 2022-01-18 16:00:00 2022-01-18 16:50:02 Routine Visit AureashaylaShikha garzon 1.2.840.1 32796.1.1 3.104.2.7 .3.097990 .8 [id number] [facility] 2022-01-18 00:00:00 2022-01-18 00:00:00 Travel 1.2.840.1 10151.1.1 3.104.2.7 .3.863038 .8 1.2.840.114 350.1.13.10 4.2.7.3.698 084.8 [id number] [facility] 2022-01-18 00:00:00 2022-01-18 00:00:00 Case Management SaskiasariYue garzongaldino 1.2.840.1 03097.1.1 3.104.2.7 .3.079223 .8 [id number] [facility] 2022-01-03 10:00:00 2022-01-03 10:38:18 Outpatient R QUINTIN STANLEY [facility] [id number] [facility] 2022-01-03 10:00:00 2022-01-03 10:38:18 Routine Visit Quintin Stanley 1.2.840.1 09289.1.1 3.104.2.7 .3.972248 .8 [id number] [facility] 2022-01-03 00:00:00 2022-01-03 00:00:00 Travel 1.2.840.1 26531.1.1 3.104.2.7 .3.109650 .8 1.2.840.114 350.1.13.10 4.2.7.3.698 084.8 [id number] [facility] 2021-12-24 16:00:00 2021-12-24 16:00:00 Outpatient R SHIKHA KWONG CHERYAL [facility] [id number] [facility] 2021-12-21 16:00:00 2021-12-21 16:20:22 Outpatient R SHIKHA KWONG CHERYAL [facility] [id number] [facility] 2021-12-21 16:00:00 2021-12-21 16:20:22 Routine Visit Shikha Kwong 1.2.840.1 67060.1.1 3.104.2.7 .3.817107 .8 [id number] [facility] 2021-12-21 00:00:00 2021-12-21 00:00:00 Travel 1.2.840.1 29718.1.1 3.104.2.7 .3.734076 .8 1.2.840.114 350.1.13.10 4.2.7.3.698 084.8 [id number] [facility] 2021-12-20 00:00:00 2021-12-20 00:00:00 Quintin Breen 1.2.840.1 80104.1.1 3.104.2.7 .3.512625 .8 [id number] [facility] 2021-12-10 16:15:00 2021-12-10 16:50:40 Outpatient R QUINTIN STANLEY [facility] [id number] [facility] 2021-12-10 16:15:00 2021-12-10 16:50:40 Routine Visit JadenGrecian 1.2.840.1 81959.1.1 3.104.2.7 .3.381385 .8 [id number] [facility] 2021-11-28 07:45:00 2021-11-28 09:44:24 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 Quintin Stanley, [facility] 1.2.840.1 64076.1.1 3.104.2.7 .3.933939 .8 [id number] [facility] 2021-11-28 07:45:00 2021-11-28 07:45:00 Outpatient R QUINTIN STANLEY [facility] [id number] [facility] 2021-11-26 16:15:00 2021-11-26 17:02:19 Outpatient R QUINTIN STANLEY [facility] [id number] [facility] 2021-11-26 16:15:00 2021-11-26 17:02:19 Routine Visit Jaden Quintin 1.2.840.1 31321.1.1 3.104.2.7 .3.283785 .8 [id number] [facility] 2021-10-30 00:00:00 2021-10-30 00:00:00 Telephone Quintin Stanley [facility] 1.840.114 350.1.13.10 4.2.7.2.686 [id number] [facility] 2021-10-29 16:00:00 2021-10-29 16:26:34 Outpatient R QUINTIN [facility] [id number] [facility] 2021-10-29 16:00:00 2021-10-29 16:26:34 Routine Visit Quintin Stanley [facility] 1.840.114 350.1.13.10 4.2.7.2.686 [id number] 134 [id number] [facility] 2021-10-16 11:00:00 2021-10-16 12:00:00 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 Ultrasound, Adc Christelle Sexton [facility] 1.840.114 350.1.13.10 4.2.7.2.686 [id number] 134 [id number] [facility] 2021-10-16 11:00:00 2021-10-16 11:00:00 Outpatient P CHRISTELLE MONDRAGON [facility] [id number] [facility] 2021-10-04 13:45:00 2021-10-04 13:45:00 Outpatient QUINTIN [facility] [id number] [facility] 2021-10-04 13:45:00 2021-10-04 13:45:00 Outpatient R QUINTIN [facility] [id number] [facility] 2021-10-01 16:00:00 2021-10-01 16:17:05 Outpatient R QUINTIN [facility] [id number] [facility] 2021-10-01 16:00:00 2021-10-01 16:17:05 Routine Visit Quintin Stanley [facility] .84.114 350.1.13.10 4.2.7.2.686 [id number] 134 [id number] [facility] 2021-09-19 07:30:00 2021-09-19 07:45:00 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 Pob, Adc Lab Main Jaden Quintin [facility] 1.840.114 350.1.13.10 4.2.7.2.686 [id number] [facility] 2021-09-19 07:30:00 2021-09-19 07:30:00 Outpatient R QUINTIN [facility] [id number] [facility] 2021-09-14 09:00:00 2021-09-14 09:45:00 Telemedici ne Visit Melody Alcantara Joseph [facility] RUBB[facility] PROCESS HAND [facility] 1..840.114 350.1.13.10 4.2.7.2.686 [id number] [facility] 2021-09-14 09:00:00 2021-09-14 09:00:00 Outpatient MICHELE NOEL [facility] [id number] [facility] 2021-09-14 00:00:00 2021-09-14 00:00:00 Telephone Quintin Stanley [facility] 1.840.114 350.1.13.10 4.2.7.2.686 [id number] 134 [id number] [facility] 2021-09-10 08:00:00 2021-09-10 08:00:00 Outpatient QUINTIN [facility] [id number] [facility] 2021-09-06 15:30:00 2021-09-06 15:30:00 Outpatient QUINTIN ROJ[facility] [id number] [facility] 2021-09-06 15:09:25 2021-09-06 15:24:25 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 Pob, Adc Lab Main Jaden Quintin [facility] 1.840.114 350.1.13.10 4.2.7.2.686 [id number] [facility] 2021-09-06 13:00:00 2021-09-06 14:03:22 Routine Visit Quintin Stanley [facility] 1.840.114 350.1.13.10 4.2.7.2.686 [id number] 134 [id number] [facility] 2021-09-06 13:00:00 2021-09-06 14:03:22 Outpatient QUINTIN [facility] [id number] [facility] 2021-09-06 00:00:00 2021-09-06 00:00:00 Orders Only Doctor Unassigned, [place] [facility] 1.2.840.114 350.1.13.10 4.2.7.2.686 [id number] [id number] [facility] 2021-08-22 00:00:00 2021-08-22 00:00:00 Telephone Jaden Quintin [facility] 1.2.840.114 350.1.13.10 4.2.7.2.686 [id number] 134 [id number] [facility] 2021-08-21 00:00:00 2021-08-21 00:00:00 Telephone Jaden Quintin [facility] 1.2.840.114 350.1.13.10 4.2.7.2.686 [id number] 134 [id number] [facility] 2021-08-15 00:00:00 2021-08-15 00:00:00 Telephone Quintin Stanley [facility] 1.2.840.114 350.1.13.10 4.2.7.2.686 [id number] 134 [id number] [facility] 2021-08-14 00:00:00 2021-08-14 00:00:00 Telephone Jaden Quintin [facility] 1.2.840.114 350.1.13.10 4.2.7.2.686 [id number] 134 [id number] [facility] 2021-08-14 00:00:00 2021-08-14 00:00:00 Case Management Jaden Quintin [facility] 1.2.840.114 350.1.13.10 4.2.7.2.686 [id number] 134 [id number] [facility] 2021-08-13 07:47:22 2021-08-13 08:02:22 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 Pob, Adc Lab Main Quintin Stanley [facility] 1.84.114 350.1.13.10 4.2.7.2.686 [id number] [facility] 2021-08-13 08:00:00 2021-08-13 08:00:00 Outpatient R QUINTIN [facility] [id number] [facility] 2021-08-13 00:00:00 2021-08-13 00:00:00 Orders Only Doctor Unassigned, [place] [facility] 1..114 350.1.13.10 4.2.7.2.686 [id number] [id number] [facility] 2021-08-11 08:00:00 2021-08-11 08:00:00 Outpatient R QUINTIN [facility] [id number] [facility] 2021-08-09 13:16:24 2021-08-09 14:06:33 Routine Visit Quintin Stanley [facility] 1.114 350.1.13.10 4.2.7.2.686 [id number] 134 [id number] [facility] 2021-08-09 13:15:00 2021-08-09 14:06:33 Outpatient R QUINTIN [facility] [id number] [facility] 2021-07-12 13:00:00 2021-07-12 13:47:08 Outpatient R QUINTIN [facility] [id number] [facility] 2021-07-12 12:58:46 2021-07-12 13:47:08 Routine Visit Quintin Stanley [facility] 1..114 350.1.13.10 4.2.7.2.686 [id number] 134 [id number] [facility] 2021-07-12 13:00:00 2021-07-12 13:00:00 Outpatient R QUINTIN [facility] [id number] [facility] 2021-07-12 00:00:00 2021-07-12 00:00:00 Orders Only Doctor Unassigned, [place] [facility] 1.2.840.114 350.1.13.10 4.2.7.2.686 [id number] [id number] [facility] 2021-07-10 16:00:00 2021-07-10 16:00:00 Outpatient R QUINTIN [facility] [id number] [facility] 2021-07-03 09:30:00 2021-07-03 10:28:55 Outpatient R QUINTIN [facility] [id number] [facility] 2021-07-03 09:27:49 2021-07-03 10:28:55 Initial Visit Quintin Stanley [facility] 1.2.840.114 350.1.13.10 4.2.7.2.686 [id number] 134 [id number] [facility] 2020-12-14 00:00:00 2020-12-14 00:00:00 Orders Only Doctor Unassigned, [place] [facility] 1.2.840.114 350.1.13.10 4.2.7.2.686 [id number] [facility] 2020-09-07 08:30:00 2020-09-07 08:30:00 Outpatient R QUINTIN [facility] [id number] [facility] 2020-09-07 00:00:00 2020-09-07 00:00:00 Orders Only Doctor Unassigned, [place] [facility] 1.2.840.114 350.1.13.10 4.2.7.2.686 [id number] [facility] Results Test Description Test Time Test Comments Results Result Co [facility]o Specific [id number] 14:19:00* Test Item Value Reference Range Interpretation Comme nts POCT PH U (test code = 3254) 5 mg/dl 5-8 POCT U LEUK EST (test code = 3263) negative Negative - Negative POCT U NIT (test code = 3262) negative Negative - Negati ve POCT U PROT (test code = 3259) negative Negative - Negat rylan POCT U GLU (test code = 3256) negative Negative - Negati ve POCT U KETONE (test code = 3258) negative Negative - Neg ative POCT U BLD (test code = 3257) negative Negative - Negati ve [facility] [id number] 18:23:00* Test Item Value Reference Range Interpretation Comme nts POCT PREG (test code = 1605) Negative On board controls acceptable with C Line (test code = 3574) Yes POCT PREG LOT # (test code = 3575) POCT PREG TEST DATE ( test code = 3576) Lab Interpretation (test cod e = 51419-7) Normal [facility] Urinalysis W Specific Vlprhgp0892-18-75 23:44:00* Test Item Value Reference Range Interpretation Comme nts POCT U SP GRAV (test code = 3255) 1.010 mg/dl 1.005-1.025 POCT PH U (test code = 3254) 9 mg/dl 5-8 A POCT U LEUK EST (test code = 3263) + Negative - Negative POCT U NIT (test code = 3262) Positive Negative - Negati ve POCT U PROT (test code = 3259) Trace Negative - Negative POCT U GLU (test code = 3256) Negative Negative - Negati ve POCT U KETONE (test code = 3258) + Negative - Negative POCT U UROBILI (test code = 3260) Normal 0.2-1 POCT U BILI (test code = 3261) Negative Negative - Negative POCT U BLD (test code = 3257) about 50 Negative - Negati ve POCT U COLOR (test code = 3266) yellow POCT U APPEAR (test code = 3267) cloudy Lab Interpretation (test cod e = 80065-2) Abnormal [facility] [id number] 23:42:00* Test Item Value Reference Range Interpretation Comme nts POCT PREG (test code = 1605) Negative On board controls acceptable with C Line (test code = 3574) Yes POCT PREG LOT # (test code = 3575) 759999 POCT PREG TEST DATE ( test code = 3576) 01/18/2025 [facility] [id number] 21:47:00* Test Item Value Reference Range Interpretation Comme nts POCT PREG (test code = 1605) Negative On board controls acceptable with C Line (test code = 3574) Yes POCT PREG LOT # (test code = 3575) POCT PREG TEST DATE ( test code = 3576) [facility] [id number] 21:47:00* Test Item Value Reference Range Interpretation Comme nts POCT PREG (test code = 1605) Negative On board controls acceptable with C Line (test code = 3574) Yes POCT PREG LOT # (test code = 3575) POCT PREG TEST DATE ( test code = 3576) [facility] [id number] 21:51:00* Test Item Value Reference Range Interpretation Comme nts POCT PREG (test code = 1605) Negative On board controls acceptable with C Line (test code = 3574) Yes POCT PREG LOT # (test code = 3575) POCT PREG TEST DATE ( test code = 3576) [facility] with Wzvajwypeuqz8094-64-95 11:20:19* Test Item Value Reference Range Interpretation Comme nts WBC (test code = 6690-2) 11.29 See_Comment H [Automated messa ge] The system which generated this result transmitted reference range: 4.30 - 11.10 10*3/?L. The reference range was not used to interpret this result as normal/abnormal. RBC (test code = 789-8) 4.00 See_Comment [Automated messa ge] The system which generated this result transmitted reference range: 3.93 - 5.25 10*6/?L. The reference range was not used to interpret this result as normal/abnormal. HGB (test code = 718-7) 10.7 g/dL 11.6-15.0 L HCT (test code = 4544-3) 33.2 % 35.7-45.2 L MCV (test code = 787-2) 83.0 fL 80.6-95.5 MCH (test code = 785-6) 26.8 pg 25.9-32.8 MCHC (test code = 786-4) 32.2 g/dL 31.6-35.1 RDW-SD (test code = 00961-6) 39.7 fL 39.0-49.9 RDW-CV (test code = 788-0) 13.3 % 12.0-15.5 PLT (test code = 777-3) 176 See_Comment [Automated Logical Appsa ge] The system which generated this result transmitted reference range: 166 - 358 10*3/?L. The reference range was not used to interpret this result as normal/abnormal. MPV (test code = 72776-6) 11.8 fL 9.5-12.9 NRBC/100 WBC (test code = 8640308451) 0.0 See_Comment [Automated [employer] medical ssage] The system which generated this result transmitted reference range: 0.0 - 10.0 /100 WBCs. The reference range was not used to interpret this result as normal/abnormal. NRBC x10^3 (test code = 6793702956) See_Comment [Automated Logical Appsa ge] The system which generated this result transmitted reference range: 10*3/?L. The reference range was not used to interpret this result as normal/abnormal. GRAN MAT (NEUT) % (test code = 770-8) 69.0 % IMM GRAN % (test code = 4287954059) 0.80 % LYMPH % (test code = 736-9) 22.2 % MONO % (test code = 5905-5) 7.0 % EOS % (test code = 713-8) 0.7 % BASO % (test code = 706-2) 0.3 % GRAN MAT x10^3(ANC) (test code = 8898494629) 7.79 10*3/uL 1.88-7.09 H IMM GRAN x10^3 (test code = 6166881291) 0.09 10*3/uL 0.00-0.06 H LYMPH x10^3 (test code = 731-0) 2.51 10*3/uL 1.32-3.29 MONO x10^3 (test code = 742-7) 0.79 10*3/uL 0.33-0.92 EOS x10^3 (test code = 711-2) 0.08 10*3/uL 0.03-0.39 BASO x10^3 (test code = 704-7) 0.03 10*3/uL 0.01-0.07 Lab Interpretation (test code = 69394-7) Abnormal [facility] with Wxlnudbsngsv5566-59-05 11:20:19* Test Item Value Reference Range Interpretation Comme nts WBC (test code = 6690-2) 11.29 See_Comment H [Automated messa ge] The system which generated this result transmitted reference range: 4.30 - 11.10 10*3/?L. The reference range was not used to interpret this result as normal/abnormal. RBC (test code = 789-8) 4.00 See_Comment [Automated messa ge] The system which generated this result transmitted reference range: 3.93 - 5.25 10*6/?L. The reference range was not used to interpret this result as normal/abnormal. HGB (test code = 718-7) 10.7 g/dL 11.6-15.0 L HCT (test code = 4544-3) 33.2 % 35.7-45.2 L MCV (test code = 787-2) 83.0 fL 80.6-95.5 MCH (test code = 785-6) 26.8 pg 25.9-32.8 MCHC (test code = 786-4) 32.2 g/dL 31.6-35.1 RDW-SD (test code = 09840-2) 39.7 fL 39.0-49.9 RDW-CV (test code = 788-0) 13.3 % 12.0-15.5 PLT (test code = 777-3) 176 See_Comment [Automated messa ge] The system which generated this result transmitted reference range: 166 - 358 10*3/?L. The reference range was not used to interpret this result as normal/abnormal. MPV (test code = 29202-7) 11.8 fL 9.5-12.9 NRBC/100 WBC (test code = 4954290948) 0.0 See_Comment [Automated me ssage] The system which generated this result transmitted reference range: 0.0 - 10.0 /100 WBCs. The reference range was not used to interpret this result as normal/abnormal. NRBC x10^3 (test code = 8989755728) See_Comment [Automated messa ge] The system which generated this result transmitted reference range: 10*3/?L. The reference range was not used to interpret this result as normal/abnormal. GRAN MAT (NEUT) % (test code = 770-8) 69.0 % IMM GRAN % (test code = 0247901095) 0.80 % LYMPH % (test code = 736-9) 22.2 % MONO % (test code = 5905-5) 7.0 % EOS % (test code = 713-8) 0.7 % BASO % (test code = 706-2) 0.3 % GRAN MAT x10^3(ANC) (test code = 1312104520) 7.79 10*3/uL 1.88-7.09 H IMM GRAN x10^3 (test code = 9834512053) 0.09 10*3/uL 0.00-0.06 H LYMPH x10^3 (test code = 731-0) 2.51 10*3/uL 1.32-3.29 MONO x10^3 (test code = 742-7) 0.79 10*3/uL 0.33-0.92 EOS x10^3 (test code = 711-2) 0.08 10*3/uL 0.03-0.39 BASO x10^3 (test code = 704-7) 0.03 10*3/uL 0.01-0.07 Lab Interpretation (test code = 19289-6) Abnormal [facility] OR FLY ONLY - [id number] 08:15:14* Test Item Value Reference Range Interpretation Comme nts RPR (Qualitative) (test code = 39640-0) Nonreactive Nonreactive Lab Interpretation (test cod e = 88438-0) Normal [facility] OR FLY ONLY - [id number] 08:15:14* Test Item Value Reference Range Interpretation Comme nts RPR (Qualitative) (test code = 73990-2) Nonreactive Nonreactive Lab Interpretation (test cod e = 88238-9) Normal [facility] (D) IMMUNE HWBPCMNQ8874-75-52 01:05:27* Test Item Value Reference Range Interpretation Comme nts RHIG CANDIDATE? (test code = 5188) No- see comment Patient is not a candidate for RhIg- Patient is Rh Positive.Performed at [facility] Laboratory Services [facility] Blood [address] [place] [address] Free: [phone] No. [id number] [facility] (D) IMMUNE KLZTQCIG6189-77-69 01:05:27* Test Item Value Reference Range Interpretation Comme nts RHIG CANDIDATE? (test code = 5188) No- see comment Patient is not a candidate for RhIg- Patient is Rh Positive.Performed at [facility] Laboratory [facility] Blood [address] [place] [address] Free: [phone] No. [id number] [facility] B Surface Ughvcbh6472-50-88 17:01:24 * Test Item Value Reference Range Interpretation Comme nts HBsAg Semi-Quantitative (luis t code = 5195-3) 0.[address] [facility] B Surface Lpovkzo8640-03-49 17:01:24 * Test Item Value Reference Range Interpretation Comme nts HBsAg Semi-Quantitative (luis t code = 5195-3) 0.06 Negative [facility] with Imjzvb7095-09-45 13:43:31* Test Item Value Reference Range Interpretation Comme nts HIV Semi-quantitative (test code = 98473-3) 0.11 Negative ZANDER (test code = ZANDER) Non-reactive for HIV-1 antigen and HIV-1/HIV-2 antibodies. ?No laboratory evidence of HIV infection. ?Repeat in 2-4 weeks if acute [facility] is suspected[facility] Mvvqzv3575-06-94 13:43:31* Test Item Value Reference Range Interpretation Comme nts HIV Semi-quantitative (test code = 96448-7) 0.11 Negative ZANDER (test code = ZANDER) Non-reactive for HIV-1 antigen and HIV-1/HIV-2 antibodies. ?No laboratory evidence of HIV infection. ?Repeat in 2-4 weeks if acute HIV infection is suspected. [facility] with Ievsypqygbnv3870-68-59 12:06:27* Test Item Value Reference Range Interpretation Comme nts WBC (test code = 6690-2) 8.62 See_Comment [Automated Logical Appsa ge] The system which generated this result transmitted reference range: 4.30 - 11.10 10*3/?L. The reference range was not used to interpret this result as normal/abnormal. RBC (test code = 789-8) 4.46 See_Comment [Automated Logical Appsa ge] The system which generated this result transmitted reference range: 3.93 - 5.25 10*6/?L. The reference range was not used to interpret this result as normal/abnormal. HGB (test code = 718-7) 12.1 g/dL 11.6-15.0 HCT (test code = 4544-3) 36.8 % 35.7-45.2 MCV (test code = 787-2) 82.5 fL 80.6-95.5 MCH (test code = 785-6) 27.1 pg 25.9-32.8 MCHC (test code = 786-4) 32.9 g/dL 31.6-35.1 RDW-SD (test code = 71037-6) 39.3 fL 39.0-49.9 RDW-CV (test code = 788-0) 13.2 % 12.0-15.5 PLT (test code = 777-3) 172 See_Comment [Automated Logical Appsa ge] The system which generated this result transmitted reference range: 166 - 358 10*3/?L. The reference range was not used to interpret this result as normal/abnormal. MPV (test code = 86687-2) 11.5 fL 9.5-12.9 NRBC/100 WBC (test code = 8905233279) 0.0 See_Comment [Automated [employer] ssage] The system which generated this result transmitted reference range: 0.0 - 10.0 /100 WBCs. The reference range was not used to interpret this result as normal/abnormal. NRBC x10^3 (test code = 3868440949) See_Comment [Automated messa ge] The system which generated this result transmitted reference range: 10*3/?L. The reference range was not used to interpret this result as normal/abnormal. GRAN MAT (NEUT) % (test code = 770-8) 63.4 % IMM GRAN % (test code = 5608953747) 1.60 % LYMPH % (test code = 736-9) 23.9 % MONO % (test code = 5905-5) 9.3 % EOS % (test code = 713-8) 1.2 % BASO % (test code = 706-2) 0.6 % GRAN MAT x10^3(ANC) (test code = 2206043340) 5.47 10*3/uL 1.88-7.09 IMM GRAN x10^3 (test code = 8789064780) 0.14 10*3/uL 0.00-0.06 H LYMPH x10^3 (test code = 731-0) 2.06 10*3/uL 1.32-3.29 MONO x10^3 (test code = 742-7) 0.80 10*3/uL 0.33-0.92 EOS x10^3 (test code = 711-2) 0.10 10*3/uL 0.03-0.39 BASO x10^3 (test code = 704-7) 0.05 10*3/uL 0.01-0.07 Lab Interpretation (test code = 06797-6) Abnormal [facility] with Npakiwphmmzh9583-74-85 12:06:27* Test Item Value Reference Range Interpretation Comme nts WBC (test code = 6690-2) 8.62 See_Comment [Automated messa ge] The system which generated this result transmitted reference range: 4.30 - 11.10 10*3/?L. The reference range was not used to interpret this result as normal/abnormal. RBC (test code = 789-8) 4.46 See_Comment [Automated messa ge] The system which generated this result transmitted reference range: 3.93 - 5.25 10*6/?L. The reference range was not used to interpret this result as normal/abnormal. HGB (test code = 718-7) 12.1 g/dL 11.6-15.0 HCT (test code = 4544-3) 36.8 % 35.7-45.2 MCV (test code = 787-2) 82.5 fL 80.6-95.5 MCH (test code = 785-6) 27.1 pg 25.9-32.8 MCHC (test code = 786-4) 32.9 g/dL 31.6-35.1 RDW-SD (test code = 97482-4) 39.3 fL 39.0-49.9 RDW-CV (test code = 788-0) 13.2 % 12.0-15.5 PLT (test code = 777-3) 172 See_Comment [Automated messa ge] The system which generated this result transmitted reference range: 166 - 358 10*3/?L. The reference range was not used to interpret this result as normal/abnormal. MPV (test code = 82923-8) 11.5 fL 9.5-12.9 NRBC/100 WBC (test code = 7954522383) 0.0 See_Comment [Automated [employer] ssage] The system which generated this result transmitted reference range: 0.0 - 10.0 /100 WBCs. The reference range was not used to interpret this result as normal/abnormal. NRBC x10^3 (test code = 3035822569) See_Comment [Automated Logical Appsa ge] The system which generated this result transmitted reference range: 10*3/?L. The reference range was not used to interpret this result as normal/abnormal. GRAN MAT (NEUT) % (test code = 770-8) 63.4 % IMM GRAN % (test code = 8210358268) 1.60 % LYMPH % (test code = 736-9) 23.9 % MONO % (test code = 5905-5) 9.3 % EOS % (test code = 713-8) 1.2 % BASO % (test code = 706-2) 0.6 % GRAN MAT x10^3(ANC) (test code = 2270903040) 5.47 10*3/uL 1.88-7.09 IMM GRAN x10^3 (test code = 3484437473) 0.14 10*3/uL 0.00-0.06 H LYMPH x10^3 (test code = 731-0) 2.06 10*3/uL 1.32-3.29 MONO x10^3 (test code = 742-7) 0.80 10*3/uL 0.33-0.92 EOS x10^3 (test code = 711-2) 0.10 10*3/uL 0.03-0.39 BASO x10^3 (test code = 704-7) 0.05 10*3/uL 0.01-0.07 Lab Interpretation (test code = 84222-5) [facility] [id number] 12:04:00 * Test Item Value Reference Range Interpretation Comme nts ABO & RH (test code = 20) O Positive IAT (test code = 1185) Negative [facility] - [facility] [id number] 12:04:00 * Test Item Value Reference Range Interpretation Comme nts ABO & RH (test code = 20) O Positive IAT (test code = 1185) Negative [facility] w/o Specific Qgbaeuf1647-40-10 21:49:00* Test Item Value Reference Range Interpretation Comme nts POCT PH U (test code = 3254) N/A 5-8 POCT U LEUK EST (test code = 3263) N/A Negative - Negative POCT U NIT (test code = 3262) N/A Negative - Negati ve POCT U PROT (test code = 3259) NEGATIVE Negative - Negat rylan POCT U GLU (test code = 3256) NORMAL Negative - Negati ve POCT U KETONE (test code = 3258) N/A Negative - Neg ative POCT U BLD (test code = 3257) N/A Negative - Negati ve [facility] W/O SPECIFIC PVMPQWT2171-88-60 15:48:00* Test Item Value Reference Range Interpretation Comme nts POCT PH U (test code = 3254) n/a 5-8 POCT U LEUK EST (test code = 3263) n/a Negative - Negative POCT U NIT (test code = 3262) n/a Negative - Negati ve POCT U PROT (test code = 3259) negative Negative - Negat rylan POCT U GLU (test code = 3256) normal Negative - Negati ve POCT U KETONE (test code = 3258) n/a Negative - Neg ative POCT U BLD (test code = 3257) n/a Negative - Negati ve [facility] URINALYSIS W/O SPECIFIC [id number] 20:20:00* Test Item Value Reference Range Interpretation Comme nts POCT PH U (test code = 3254) n/a 5-8 POCT U LEUK EST (test code = 3263) n/a Negative - Negative POCT U NIT (test code = 3262) n/a Negative - Negati ve POCT U PROT (test code = 3259) negative Negative - Negat rylan POCT U GLU (test code = 3256) negative Negative - Negati ve POCT U KETONE (test code = 3258) n/a Negative - Neg ative POCT U BLD (test code = 3257) n/a Negative - Negati ve [facility] URINALYSIS W/O SPECIFIC [id number] 21:04:00* Test Item Value Reference Range Interpretation Comme nts POCT PH U (test code = 3254) n/a 5-8 POCT U LEUK EST (test code = 3263) n/a Negative - Negative POCT U NIT (test code = 3262) n/a Negative - Negati ve POCT U PROT (test code = 3259) Negative Negative - Negat rylan POCT U GLU (test code = 3256) Normal Negative - Negati ve POCT U KETONE (test code = 3258) n/a Negative - Neg ative POCT U BLD (test code = 3257) n/a Negative - Negati ve [facility] URINALYSIS W/O SPECIFIC [id number] 20:52:00* Test Item Value Reference Range Interpretation Comme nts POCT PH U (test code = 3254) n/a 5-8 POCT U LEUK EST (test code = 3263) n/a Negative - Negative POCT U NIT (test code = 3262) n/a Negative - Negati ve POCT U PROT (test code = 3259) Negative Negative - Negat rylan POCT U GLU (test code = 3256) 100 Negative - Negati ve POCT U KETONE (test code = 3258) n/a Negative - Neg ative POCT U BLD (test code = 3257) n/a Negative - Negati ve [facility] URINALYSIS W/O SPECIFIC [id number] 21:32:00* Test Item Value Reference Range Interpretation Comme nts POCT PH U (test code = 3254) 5 mg/dl 5-8 POCT U LEUK EST (test code = 3263) negative Negative - Negative POCT U NIT (test code = 3262) negative Negative - Negati ve POCT U PROT (test code = 3259) negative Negative - Negat rylan POCT U GLU (test code = 3256) negative Negative - Negati ve POCT U KETONE (test code = 3258) negative Negative - Neg ative POCT U BLD (test code = 3257) negative Negative - Negati ve [facility] URINALYSIS W/O SPECIFIC [id number] 15:42:00* Test Item Value Reference Range Interpretation Comme nts POCT PH U (test code = 3254) N/A 5-8 POCT U LEUK EST (test code = 3263) N/A Negative - Negative POCT U NIT (test code = 3262) N/A Negative - Negati ve POCT U PROT (test code = 3259) Negative Negative - Negat rylan POCT U GLU (test code = 3256) Negative Negative - Negati ve POCT U KETONE (test code = 3258) N/A Negative - Neg ative POCT U BLD (test code = 3257) N/A Negative - Negati ve [facility]CIFIC [id number] 21:08:00* Test Item Value Reference Range Interpretation Comme nts POCT PH U (test code = 3254) N/A 5-8 POCT U LEUK EST (test code = 3263) N/A Negative - Negative POCT U NIT (test code = 3262) N/A Negative - Negati ve POCT U PROT (test code = 3259) Negative Negative - Negat rylan POCT U GLU (test code = 3256) Negative Negative - Negati ve POCT U KETONE (test code = 3258) N/A Negative - Neg ative POCT U BLD (test code = 3257) N/A Negative - Negati ve [facility] URINALYSIS W/O SPECIFIC [id number] 16:54:00* Test Item Value Reference Range Interpretation Comme nts POCT PH U (test code = 3254) n/a 5-8 POCT U LEUK EST (test code = 3263) n/a Negative - N egative POCT U NIT (test code = 3262) n/a Negative - Negati ve POCT U PROT (test code = 3259) neg Negative - Negat rylan POCT U GLU (test code = 3256) neg Negative - Negati ve POCT U KETONE (test code = 3258) n/a Negative - Neg ative POCT U BLD (test code = 3257) n/a Negative - Negati ve [facility] URINALYSIS W/O SPECIFIC [id number] 16:48:00* Test Item Value Reference Range Interpretation Comme nts POCT PH U (test code = 3254) N/A 5-8 POCT U LEUK EST (test code = 3263) N/A Negative - Negative POCT U NIT (test code = 3262) N/A Negative - Negati ve POCT U PROT (test code = 3259) Negative Negative - Negat rylan POCT U GLU (test code = 3256) Negative Negative - Negati ve POCT U KETONE (test code = 3258) N/A Negative - Neg ative POCT U BLD (test code = 3257) N/A Negative - Negati ve [facility] [id number] 16:48:00* Test Item Value Reference Range Interpretation Comme nts POCT PREG (test code = 1605) Positive On board controls acceptable with C Line (test code = 3574) Yes POCT PREG LOT # (test code = 3575) POCT PREG TEST DATE ( test code = 3576) [facility] URINALYSIS W/O SPECIFIC [id number] 16:46:00* Test Item Value Reference Range Interpretation Comme nts POCT PH U (test code = 3254) N/A 5-8 POCT U LEUK EST (test code = 3263) N/A Negative - Negative POCT U NIT (test code = 3262) N/A Negative - Negati ve POCT U PROT (test code = 3259) Negative Negative - Negat rylan POCT U GLU (test code = 3256) Negative Negative - Negati ve POCT U KETONE (test code = 3258) N/A Negative - Neg ative POCT U BLD (test code = 3257) N/A Negative - Negati ve [facility] History and Physical Notes Date/Time Note Provider Source 2023-09-24 06:53:37 TRIAGE HISTORY & PHYSICAL IDENTIFYING DATA Salena Reese is 23 year old, /White, 39w1d, female with SIDRA 09/30/2023, by Last Menstrual Period. : 2000 Primary Care Physician: PATIENT DOES NOT HAVE A PCP CHIEF COMPLAINT Elective repeat CD at 39 wks HISTORY OF PRESENT ILLNESS Salena Reese is a 23 year old female @ 39w1d +FM. No VB, LOF, or CTX. No pre-eclampsia sx or other complaints. PAST OBSTETRIC HISTORY OB History Para Term AB Living 2 1 1 0 0 1 SAB IAB Ectopic Multiple Live Births 0 0 0 0 1 # Outcome Date GA Lbr Wali/2nd Weight Sex Delivery Anes PTL Lv 2 Current 1 Term 02/22/22 38w5d 3600 g M , L Spinal, EPI SAMANTHA Complications: Failure to Progress in Second Stage PAST MEDICAL HISTORY Problem list: Patient Active Problem List Diagnosis Date Noted related hip pain, antepartum 04/09/2023 History of herpes genitalis 04/09/2023 History of delivery, currently 02/12/2023 Axillary lymphadenitis 12/23/2021 39 weeks gestation of 12/23/2021 Alpha thalassemia silent carrier 09/06/2021 GBS bacteriuria 09/06/2021 Supervision of other normal , antepartum 07/15/2021 Seasonal allergies 09/23/2016 Operations: Past Surgical History: Procedure Laterality Date SECTION N/A 02/22/2022 Surgeon: Quintin Stanley MD; Location: [facility] Past Medical History: Diagnosis Date Acute vaginitis 12/10/2022 Anemia 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 HOLDING ONCE D5W-LR IV infusion 1,000 mL 1,000 mL IV Infusion TITRATE 125 mL/hr at 09/24/23 0554 1,000 mL at 09/24/23 0554 lactated ringers IV infusion 500 mL 500 mL IV Infusion PRN - SEE INSTRUCTIONS lidocaine 1% (PF) (XYLOCAINE) injection 0.3 mL 0.3 mL Infiltration PRN - SEE INSTRUCTIONS methylergonovine (METHERGINE) injection 0.2 mg 0.2 mg Intramuscular Q4HPRN miSOPROStoL (CYTOTEC) tablet 200 mcg 200 mcg Rectal PRN oxytocin (PITOCIN) 30 units in NS 500 mL IV infusion 600 mL/hr IV Infusion PRN terbutaline (BRETHINE) injection 0.25 mg 0.25 mg Subcutaneous PRN tranexamic acid (CYKLOKAPRON) 1,000 mg in NaCl 0.9% (NS) 250 mL piggyback 1,000 mg IV Piggyback PRN Allergies and drug reactions: Patient has no known allergies. HOME MEDICATIONS Medications Prior to Admission Medication Sig Dispense Refill Last Dose hydrOXYzine 25 mg tablet Take 1 tablet by mouth at bedtime as needed for Itching. 30 tablet 0 Not Taking ondansetron 8 mg disintegrating tablet Take 1 tablet by mouth every 8 (eight) hours as needed for Nausea and Vomiting (N/V). 30 tablet 1 PRN vit no.124/iron/folic ( VITAMIN ORAL) Take by mouth. Taking SOCIAL HISTORY Tobacco History: Social History Tobacco Use Smoking Status Never Smokeless Tobacco Never Drug History: Social History Substance and Sexual Activity Drug Use No Alcohol History: Social History Substance and Sexual Activity Alcohol Use Not Currently FAMILY HISTORY Family History Problem Relation Age of Onset Diabetes Maternal Grandmother Arrhythmia Maternal Grandfather Diabetes Father Arthritis NoFHx Asthma NoFHx defects NoFHx Breast Cancer NoFHx Ovarian Cancer NoFHx Uterine Cancer NoFHx Colon Cancer NoFHx Cancer NoFHx Depression NoFHx Genetic NoFHx Heart NoFHx High cholesterol NoFHx Hypertension NoFHx Mental retardation NoFHx Neurological NoFHx Osteoporosis NoFHx Psychiatry NoFHx Other - see comments NoFHx REVIEW OF SYSTEMS General: negative Constitutional: negative Eyes: negative ENT/Mouth: negative Cardiovascular: negative Respiratory: negative Gastrointestinal:negative Genitourinary: negative Musculoskeletal: negative Skin/breast: negative Neurological: negative Psychiatric: negative Endocrine: negative Hemat/Lymph: negative Allergic/Immuno:none VITAL SIGNS BP: (109-119)/(72-77) Temp: [36.9 ?C (98.4 ?F)] Temp source: Oral (09/24 0525) Pulse: [82-88] Resp: [16] SpO2: [97 %-98 %] Height: [154.9 cm (5' 1")] Weight: [69.4 kg (153 lb)] BMI (calculated): [28.91] PHYSICAL EXAMINATIONS Gen: alert and oriented, well appearing, no distress CV: RRR, normal S1/S2, no m/r/g Resp: normal work of breathing, lungs CTAB Abd: gravid, soft, NTTP Ext: no calf tenderness or edema : SVE closed REVIEW OF LABORATORY, PATHOLOGY, AND RADIOLOGY DATA Lab results: Type & Screen HIV Hep B Syphilis Chlamydia ABO & RH Date Value Ref Range Status 09/24/2023 O Positive Final No results found for: "HIVMULTIPLEX" No components found for: "HBSHBSAG" No results found for: "SYPIGG" C. trachomatis Nucleic Acid Date Value Ref Range Status 09/08/2023 Negative Negative Final IAT Date Value Ref Range Status 09/24/2023 Negative Final Varicella Rubella Glucose Group B Strep CBC VZV IgG antibody Date Value Ref Range Status 03/13/2023 Positive Negative Final Rubella screen IgG Date Value Ref Range Status 03/13/2023 Positive Negative Final GLUC 1 HR Date Value Ref Range Status 06/13/2023 116 (L) 120 - 170 mg/dL Final No results found for: "CGBS" HGB Date Value Ref Range Status 09/24/2023 12.1 11.6 - 15.0 g/dL Final HCT Date Value Ref Range Status 09/24/2023 36.8 35.7 - 45.2 % Final PLT Date Value Ref Range Status 09/24/2023 172 166 - 358 10*3/?L Final Active Hospital Problems Diagnosis Date Noted History of herpes genitalis 04/09/2023 History of delivery, currently 02/12/2023 39 weeks gestation of 12/23/2021 GBS bacteriuria 09/06/2021 Supervision of other normal , antepartum 07/15/2021 Resolved Hospital Problems No resolved problems to display. Present on Admission: 39 weeks gestation of History of delivery, currently Supervision of other normal , antepartum GBS bacteriuria History of herpes genitalis Placenta Accreta Screening Prior ? : Yes Prior Uterine Surgery?: No Placenta low lying/previa in current ? : No Screening outcome: A positive screening outcome indicates a history of prior delivery or prior uterine surgery, AND the presence of either a placenta low lying/previa or ultrasound suspicion of PASD in the current . Negative screening. ASSESSMENT AND PLAN Salena Reese is a 23 year old at 39w1d who presents for an elective repeat CD. Previous CD x 1 - admit for repeat CD Body mass index is 28.91 kg/m?. PVT of Dr. Troy, please see OB Summary for more details Colt Troy MD [facility] Notes Date/Time Note Provider Source 2024-04-17 04:03:51 Already addressed by Marni on 04/16 See result note Trudy Leslie MD [facility]EC[facility] STAFF [facility] 2024-04-16 19:49:42 Rx sent for UTI Tx. [facility] 2024-04-16 15:30:07 Patient is calling to get results on urine culture results. Lalita Haile MA [facility] 2024-04-15 10:34:00 Regarding: Diarrhea x 2 days ----- Message from Leonarda Sykes sent at 04/15/2024 10:25 AM CDT ----- Salena Reese is a 23 year old female or post op (no) -Number of weeks -Date of Surgery Language: [place] Citizen Specific Symptoms: Diarrhea Specific Duration: 2 days Meredith Moya RN [facility] 2024-04-15 10:34:00 Adult Triage Assessment Last Clinic Visit: 04/13/2024 well woman Primary Symptom: diarrhea-pt concerned its from contaminated water from water bottle Onset / Duration: 2 days-going 10 times a day Location / Description: watery-denies bleeding Pain / Severity: cramping form diarrhea Associated Symptoms: gassy Fever / Method: denies Hydration: no changes to I/O, drinking lots of water Treatment so far: pepto Effect on ADL's: none LMP: n/a Pre-existing condition / Immunocompromised: Seasonal allergies Axillary lymphadenitis Reason for Disposition [1] MODERATE diarrhea (e.g., 4-6 times / day more than normal) AND [2] present > 48 hours (2 days) Protocols used: [id number]-HS Nurse Note: after assessment, pt was provided care advise per protocol with call back instructions included. Pt verbalized understanding. Appt could not be secured within 24 hours, encounter routed to clinic for follow up. [facility] Meredith Moya RN [facility] 2024-04-15 10:34:00 Spoke with patient, she stated that she has only had diarrhea 3 times today and that she feels like it is slowing down. Patient reports no other symptoms. Advised patient to stayed hydrated and to try OTC Imodium. If symptoms worsen to got to ED for evaluation. Patient voiced understanding. ER precautions given. Latanya Allred RN [facility] 2024-03-29 13:15:00 Images from the original note were not included. Venipuncture collection performed by clean technique on the right anticubitus. Total of 1 attempts were made. Slight pressure and a bandage/dressing were applied to the site(s). The patient experienced no complications. The following specimens were processed according to instructions and sent to [facility] laboratories per lab order on 03/29/2024 : LT BLUE SST 1 RED LAV 1 PPT DK GREEN (LiHep) DK GREEN (SodH) MULLEN DK BLUE (K2) DK BLUE (S) ACD Blood Culture NIPT/NTD [facility] 2023-11-12 15:55:25 Referral closed, unable to contact pt. Carmen Rhodes RN [facility] 2023-11-10 15:30:34 Spoke with patient. Patient states she has started her cycle. Patient advised that Dr Troy's last note stated to follow up if she started her cycle. Patient scheduled for . Charles Lozano RN 11/10/2023 3:31 PM Charles Lozano RN [facility] 2023-11-10 13:54:23 Patient says she started her cycle so was told to call back so control can be called in [employer] N June [facility] 2023-11-04 12:30:13 Pt returning missed call from Carmen about a referral for [place]. Please call and assist N Randle [facility] 2023-10-01 00:19:52 DC instructions reviewed with patient. She will follow up with Dr Troy on 10/06/23. She was Dc'd ambulatory-warm, dry, pink, alert, in no distress N Marcum RN [facility] 2023-09-30 23:47:36 Bordered gauze dressing applied to C Section incision as ordered. Incision is clean and dry, well approximated, without redness or swelling, or drainage. [facility] 2023-09-30 22:48:54 Patient to ED c/o pain at her c section site. Patient states that she still has the bandage on that she left here with on 09/24. Patient describes it as a "burning on the inside of the incision." States there is a little bit of blood on that side of the bandage where it hurts. N Juarez RN [facility] 2023-09-26 09:07:15 Problem: Intrapartum process (including labor pain) Goal: Able to cope with pain Outcome: Adequate for discharge Problem: Pain Goal: Control of pain at or below patient's documented comfort goal Outcome: Adequate for discharge Problem: Falls, Risk of Goal: Absence of falls Outcome: Adequate for discharge Problem: Discharge Planning - Goal: Adequate for discharge Outcome: Adequate for discharge Goal: Mood stable Outcome: Adequate for discharge Kesha Jean Baptiste RN [facility] 2023-09-25 22:51:27 Problem: Intrapartum process (including labor pain) Goal: Able to cope with pain Outcome: Progressing as expected Problem: Pain Goal: Control of pain at or below patient's documented comfort goal Outcome: Progressing as expected Problem: Falls, Risk of Goal: Absence of falls Outcome: Progressing as expected Problem: Discharge Planning - Goal: Adequate for discharge Outcome: Progressing as expected Goal: Mood stable Outcome: Progressing as expected Norah Tena RN [facility] 2023-09-25 16:17:22 Problem: Intrapartum process (including labor pain) Goal: Able to cope with pain Outcome: Progressing as expected Problem: Pain Goal: Control of pain at or below patient's documented comfort goal Outcome: Progressing as expected Problem: Falls, Risk of Goal: Absence of falls Outcome: Progressing as expected Problem: Discharge Planning - Goal: Adequate for discharge Outcome: Progressing as expected Goal: Mood stable Outcome: Progressing as expected Denise Wallace RN [facility] 2023-09-24 21:45:30 Problem: Intrapartum process (including labor pain) Goal: Able to cope with pain Outcome: Progressing as expected Problem: Pain Goal: Control of pain at or below patient's documented comfort goal Outcome: Progressing as expected Problem: Falls, Risk of Goal: Absence of falls Outcome: Progressing as expected Problem: Discharge Planning - Goal: Adequate for discharge Outcome: Progressing as expected Goal: Mood stable Outcome: Progressing as expected Hannah Mccollum RN [facility] 2023-09-24 08:48:49 Delivery Date: 09/24/2023 Delivery Time: 7:41 AM DELIVERY BY SECTION Date of Service: : 09/24/2023 at 7:41 AM Admitted for: elective repeat CD at 39 wks, Repeat Lower uterine transverse section with no extension, no BTL, Pfannenstiel, Closed with suture, EBL 500 cc, No complications, Findings: minimal adhesions Delivery Summary Rus[place] Sex: female Ruskin Weight: 3100 g 1 Minute 5 Minute 10 Minute Totals: 8 9 Primary Indication: Salena Reese is a 23 year old female @ 39w1d, previous CD x 1. The patient was taken to the operating room for a repeat section due to: Elective Repeat Section at 39w1d weeks. Procedures: Repeat Lower uterine transverse section with no extension Specimens Removed: Placenta Surgeon: Colt Troy MD Report: Prophylactic antibiotic, Ancef was given before patient was taken to OR. After arrival to the operating room patient was placed in the supine position with left lateral tilt after administration of spinal anesthesia. Laparotomy A pfannenstiel incision was made through the anterior abdominal wall with #10 scalpel. The incision was extended sharply with the #10 scalpel through the subcutaneous tissue to the level of fascia. The fascia was entered sharply with a #10 scalpel (Pfannenstiel) in the midline and extended in semi-elliptical fashion with Moe scissor. The underlying muscles were dissected off the overlying fascia by grasping the superior aspect of fascia with two laly clamps and blunt dissection was used along the midline. The fascia was further from rectus muscle with Moe scissor and/or cautery. In similar fashion, the lower aspect of fascia was also grsaped with two Laly clamps and both blunt and sharp dissection was used to separate fascia from rectus muscle. The rectus muscles were in the midline sharply with Moe scissor dissection and sharply with scalpel. The peritoneum was then entered sharply by grasping and tenting the peritoneum with two hemostats and enter with Metzenbaum scissor. The peritoneal incision was then extended superiorly and inferiorly under direct visualization with care being taken to avoid bladder and bowel. There were minimal filmy adhesions which were taken down with autery and/or Metzebaum scissor. The peritoneal incision was enlarged bluntly by lateral traction from the surgeon's and first mate's hand. Delivery A bladder flap was developed by grasping with Marshallese forcep and enter with Metzenbaun scissor. Then sharp and blunt dissection with Metzenbaum scissor and fingers were performed. A low transverse hysterotomy was made then with #10 scalpel and extended laterally and cephalad with fingers in a low transverse fashion with Manu Gallagher technique with care being taken to avoid injury to the fetus. The amniotic (membranes) were then entered with spontaneous rupture of membrane, and the amniotic fluid was noted to be clear . The head was delivered manually without aid of vaginal hand. The head was flexed and delivered through the hysterotomy incision in a non-traumatic fashion with aid of fundal pressure applied by the diagnostic assistant surgeon . The body was delivered with traction on the head along with fundal pressure. After delivery of body-bulb suction was performed from oropharynx and nostril with removal of clear amniotic fluid. Fetus was delivered in cephalic presentation. With delivery the baby, no extension was noted.Delayed cord clamping was performed for 30-60 seconds. Placenta was delivered spontaneously with steady traction on cord and manual separation of placenta from uterine wall. Closure Uterine cavity was cleaned after placental delivery with lap sponge x 2. The hysterotomy was closed in one layer with stitches using 1-0 Monocryl with continuous locking stitches. Hemostasis was achieved as needed with electrocautery. The ovaries/tubes/uterine surface were evaluated. They were found to be normal. Rectus muscle was re-approximated with 2-0 Monocryl. Fascia was closed with running stitches using 0-Biosyn . Hemostasis was checked for and found to be adequate. The subcutaneous tissue was irrigated and hemostasis was achieved where needed with electrocautery. The skin was then closed with subcutaneous stitches using 3-0 Vicryl sutures. The incision was cleaned and covered with a compression bandage and the procedure considered to be complete at this time. Intraoperative Complications: None EBL: 500 Uterotonics: 30 units of pitocin mixed in 500 cc of LR Disposition: The patient tolerated the procedure well. She was recovered in the Labor and Delivery Room with routine care in stable condition, with a contracted uterus and normal transvaginal bleeding. The infant was sent to Transition Nurs[facility]. The placenta was not sent to pathology. Colt Troy MD 09/24/2023 8:53 AM [facility] 2023-09-24 08:02:55 Problem: Intrapartum process (including labor pain) Goal: Absence of or reduction of complications of labor 09/24/2023801 by Franca Castañeda RN Outcome: Resolved 09/24/2023618 by Franca Castañeda RN Outcome: Progressing as expected Goal: Able to cope with pain Outcome: Progressing as expected Goal: Adequate to move to next level of care 09/24/2023801 by Franca Castañeda RN Outcome: Resolved 09/24/2023618 by Franca Castañeda RN Outcome: Progressing as expected Goal: Reduction in pain sensation 09/24/2023801 by Franca Castañeda RN Outcome: Resolved 09/24/2023618 by Franca Castañeda RN Outcome: Progressing as expected Problem: Pain Goal: Control of pain at or below patient's documented comfort goal 09/24/2023801 by Franca Castañeda RN Outcome: Progressing as expected 09/24/2023618 by Franca Castañeda RN Outcome: Progressing as expected Problem: Falls, Risk of Goal: Absence of falls 09/24/2023801 by Franca Castañeda RN Outcome: Progressing as expected 09/24/2023618 by Franca Castañeda RN Outcome: Progressing as expected Problem: Discharge Planning - Goal: Adequate for discharge Outcome: Progressing as expected Goal: Mood stable Outcome: Progressing as expected N Castañeda RN [facility] 2023-09-24 05:50:00 Problem: Intrapartum process (including labor pain) Goal: Absence of or reduction of complications of labor Outcome: Progressing as expected Goal: Able to cope with pain Outcome: Progressing as expected Goal: Adequate to move to next level of care Outcome: Progressing as expected Goal: Reduction in pain sensation Outcome: Progressing as expected Problem: Pain Goal: Control of pain at or below patient's documented comfort goal Outcome: Progressing as expected Problem: Falls, Risk of Goal: Absence of falls Outcome: Progressing as expected [facility] 2023-09-18 15:45:00 Age: [age] year old GA: 38w2d - Doing well -Desires SVE. SVE closed/thick/high - GBS positive: will need antibiotics if in labor - CD x 1: repeat CD at 39 wks on 09/24/23 unless clinically indicated otherwise - Hx of HSV: on suppression - Daily kick counts - follow-up for incision check and in 4-6 wks for PP visit [facility] 2023-06-13 07:30:00 Formatting of this n ote is different from the original. Images from the original note were not included. Given 50gm glucola without complications. Finished at 0806. Venipuncture collection performed by clean technique on the right anticubitus. Total of 1 attempts were made. Slight pressure and a bandage/dressing were applied to the site(s). The patient experienced no complications. The following specimens were processed according to instructions and sent to [facility] laboratories per lab order on 06/13/2023 : LT BLUE SST 3 RED 1 LAV 2 PPT DK GREEN (LiHep) DK GREEN (SodH) MULLEN DK BLUE (K2) DK BLUE (S) ACD Blood Culture NIPT/NTD [facility] 2023-06-10 10:30:00 Formatting of this n ote might be different from the original. Age: [age] year old GA: 24w0d Salena Reese is a 22 y.o. female who presented to clinic for scheduled NUVIA visit at 24w0d gestation. Patient doing well and without complaints. History of primary section. Ms. Reese is deciding if she desires a RCS for delivery or TOLAC. Supervision of other normal , antepartum 24 weeks gestation of History of delivery, currently - Endorses positive movement - Denies loss of fluid, vaginal bleeding, vaginal discharge, or contractions - POCT urinalysis w/o specific gravity; negative results - RPR - CBC wit diff - Glucose 1 hour post prandial - HIV 1/2 - workup, blood bank - History of C/S; patient deciding between RCS in [place] or a TOLAC in [place] or [place]. Second trimester education - Continue healthy diet, light exercise, and hydration with water (at least 64 ounces) - Monitor for vaginal bleeding, contractions, or loss of fluid - Symptoms of preeclampsia include headache, visual disturbances, epigastric (under right rib) pain, and/or elevated blood pressure - Symptoms of diabetes include increased hunger, increased urination and increased thirst (Will obtain one hour glucose tolerance test approximately 28 weeks gestation) - If blood type is RH negative, Rhogam will be administered at 28 weeks gestation - Contact clinic for any concerns 4. HSV infection - Suppressive treatment at 35 weeks gestation 5. Alpha thalassemia silent carrier - MS AFP declined - [facility] low risk female RTC in four weeks; sooner as indicted. I have seen and examined the patient and agreed with the note above Shikha Kwong NP 06/11/2023 11:17 AM [facility] 2023-05-12 16:00:00 Formatting of this n ote might be different from the original. Age: [age] year old GA: 19w6d Salena Reese is a 22 y.o. female who presented to clinic for scheduled NUVIA visit at 19w6d gestation. Doing well and without complaints. Supervision of other normal , antepartum 19 weeks gestation of History of delivery, currently - Declined MS AFP - Anatomy ultrasound scheduled for 05/13/2023 Second trimester education - Continue healthy diet, light exercise, and hydration with water (at least 64 ounces) - Monitor for vaginal bleeding, contractions, or loss of fluid - Symptoms of preeclampsia include headache, visual disturbances, epigastric (under right rib) pain, and/or elevated blood pressure - Symptoms of diabetes include increased hunger, increased urination and increased thirst (Will obtain one hour glucose tolerance test approximately 28 weeks gestation) - If blood type is RH negative, Rhogam will be administered at 28 weeks gestation - Contact clinic for any concerns 4. HSV infection - Plan treatment to begin at 35 weeks gestation RTC in four weeks; sooner as indicated. I have seen and examined the patient and agreed with the note above Shikha Kwong NP 05/12/2023 4:[address] [facility]
[2024-07-12] MEDS ORDERED: HYDROCODONE/APAP 5/325 MG TAB ONE (07:07)
[2024-07-12] MEDS ORDERED: IBUPROFEN 400 MG TAB ONE (07:07)
--- NOTE | 2024-07-12 08:13 | RAD REPORT ---
EXAMINATION: XR RIGHT WRIST CLINICAL INDICATION: wrist pain and swelling;Pain RIGHT TECHNIQUE: Multiple projections of the right wrist were obtained. COMPARISON: No prior exam. FINDINGS: Soft tissue swelling is seen along the dorsum of the wrist. No fracture or dislocation evid ent.
--- NOTE | 2024-07-12 08:20 | EDPHYS ---
Physician Documentation [facility] Name: Salena Reese Age: 23 yrs Sex: Female : 2000 Arrival Date: 07/12/2024 Time: 06:51 Bed 20 Private MD: ED Physician Adalberto Xavier HPI: 07/12 07:51 This 23 yrs old Female presents to ER via Ambulatory with complaints of Wrist rn Injury. 07:51 The patient or guardian reports injury, pain, swelling. The complaints affect the right rn wrist diffusely. Onset: The symptoms/episode began/occurred just prior to arrival. Modifying factors: The symptoms are alleviated by nothing, the symptoms are aggravated by movement. Associated signs and symptoms: Pertinent negatives: cyanosis distally, decreased sensation distally, numbness distally, tingling distally. The patient has not experienced similar symptoms in the past. Patient reports right wrist caught in car door. Patient was reversing out of garage and somehow got her wrist caught between the door as the door was being closed by garage or wall as she was backing out. Isolated injury to the right wrist. No weakness.. Historical: - Allergies: 07:16 No Known Allergies; rs5 - PMHx: 07:16 None; rs5 - PSHx: 07:16 None; rs5 - Immunization history:: Adult Immunizations up to date. - Infectious Disease History:: Denies. - Social history:: Smoking status: Patient denies any tobacco usage or history of. - Family history:: not pertinent. - Hospitalizations: : No recent hospitalization is reported. ROS: 07:51 Constitutional: Negative for fever, chills, and weight loss, MS/Extremity: Positive for rn right wrist pain and swelling Exam: 07:51 Constitutional: This is a well developed, well nourished patient who is awake, alert, rn appears in pain MS/ Extremity: Pulses equal, no cyanosis. Neurovascular intact. Tenderness to the right wrist with abrasions but no lacerations. Vital Signs: 06:56 BP 130 / 91; Pulse 81; Resp 17; Temp 98(O); Pulse Ox 99% on R/A; rs5 08:20 BP 122 / 88; Pulse 77; Resp 17; Pulse Ox 99% on R/A; rs5 MDM: 07:01 Patient medically screened. rn 08:19 Differential diagnosis: closed fracture, contusion. Data reviewed: vital signs, nurses rn notes, radiologic studies, plain films, and as a result, I will discharge patient. Independent interpretation of the following test(s) in the Emergency Department X-Ray: My interpretation is X-ray right wrist images negative for fracture or dislocation per my interpretation. Counseling: I had a detailed discussion with the patient and/or guardian regarding the historical points, exam findings, and any diagnostic results supporting the discharge/admit diagnosis, radiology results, the need for outpatient follow up, to return to the emergency department if symptoms worsen or persist or if there are any questions or concerns that arise at home. Response to treatment: the patient's symptoms have markedly improved after treatment, and as a result, I will discharge patient. Special discussion: I discussed with the patient/guardian in detail that at this point there is no indication for admission to the hospital. It is understood, however, that if the symptoms persist or worsen the patient needs to return immediately for re-evaluation. 07/12 07:04 Order name: XRAY Wrist RIGHT 3 view; Complete Time: 08:15 rn Administered Medications: 07:16 Drug: Ibuprofen PO 800 mg PO once Route: PO; rs5 08:22 Follow up: Response: No adverse reaction rs5 07:16 Drug: HYDROcodone-acetaminophen PO 5 mg-325 mg 1 tabs PO once Route: PO; rs5 08:22 Follow up: Response: No adverse reaction; Pain is decreased rs5 Disposition Summary: 07/12/24 08:20 Discharge Ordered Notes: Location: Home rn Problem: new rn Symptoms: have improved rn Condition: Stable rn Diagnosis - Contusion of right wrist rn Followup: rn - With: Private Physician - When: As needed - Reason: Recheck today's complaints, Re-evaluation by your physician Discharge Instructions: - Discharge Summary Sheet rn - Contusion rn Forms: - Medication Reconciliation Form rn - Antibiotic collections attorney - Prescription Opioid Use rn - Patient Portal Instructions rn - Leadership Thank You Letter rn Prescriptions: - Ibuprofen 800 mg Oral Tablet - take 1 tablet ORAL route every 12 hours As needed take with food; 20 tablet; rn Refills: 0, Product Selection Permitted Signatures: Dispatcher [employer] Adalberto Rush MD MD rn Sotelo, Ricky, RN RN rs5 Corrections: (The following items were deleted from the chart) 07:16 07:16 PSHx: Unable to Obtain; rs5 rs5
--- NOTE | 2024-07-12 08:20 | ER ---
Nurse's Notes [facility] Name: Salena Reese Age: 23 yrs Sex: Female : 2000 Arrival Date: 07/12/2024 Time: 06:51 Bed 20 Private MD: Diagnosis: Contusion of right wrist Presentation: 07/12 06:56 Chief complaint: Patient states: "I was closing the garage door and I accidentally rs5 smashed my right wrist when it was closing". 06:56 Coronavirus screen: At this time, the client does not indicate any symptoms associated rs5 with coronavirus-19. Ebola Screen: No symptoms or risks identified at this time. Initial Sepsis Screen: Does the patient meet any 2 criteria? No. Patient's initial sepsis screen is negative. Does the patient have a suspected source of infection? No. Patient's initial sepsis screen is negative. Risk Assessment: Do you want to hurt yourself or someone else? Patient reports no desire to harm self or others. Onset of symptoms was July 12, 2024. 06:56 Method Of Arrival: Ambulatory rs5 06:56 Acuity: ARTIS 4 rs5 Historical: - Allergies: 07:16 No Known Allergies; rs5 - PMHx: 07:16 None; rs5 - PSHx: 07:16 None; rs5 - Immunization history:: Adult Immunizations up to date. - Infectious Disease History:: Denies. - Social history:: Smoking status: Patient denies any tobacco usage or history of. - Family history:: not pertinent. - Hospitalizations: : No recent hospitalization is reported. Screenin:00 [facility] ED Fall Risk Assessment (Adult) History of falling in the last 3 months, rs5 including since admission No falls in past 3 months (0 pts) Confusion or Disorientation No (0 pts) Intoxicated or Sedated No (0 pts) Impaired Gait No (0 pts) Mobility Assist Device Used No (0 pt) Altered Elimination No (0 pt) Score/Fall Risk Level 0 - 2 = Low Risk Oriented to surroundings, Maintained a safe environment. Abuse screen: Denies threats or abuse. Nutritional screening: No deficits noted. Tuberculosis screening: No symptoms or risk factors identified. Assessment: 06:56 General: Appears in no apparent distress. uncomfortable, Behavior is calm, cooperative. rs5 Pain: Complains of pain in right wrist and right hand Pain currently is 8 out of 10 on a pain scale. Quality of pain is described as aching, Is continuous. Neuro: Level of Consciousness is awake, alert, obeys commands, Oriented to person, place, time, situation. Cardiovascular: Patient's skin is warm and dry. Respiratory: Airway is patent Respiratory effort is even, unlabored, Respiratory pattern is regular, symmetrical. GI: Abdomen is round non-distended. : No signs and/or symptoms were reported regarding the genitourinary system. EENT: No signs and/or symptoms were reported regarding the EENT system. Derm: Skin is intact, Skin is pink, warm \\T\\ dry. Bruising that is noted to right wrist . Musculoskeletal: Swelling present in right hand and wrist. 08:10 Reassessment: Patient and/or family updated on plan of care and expected duration. Pain rs5 level reassessed. Patient is alert, oriented x 3, equal unlabored respirations, skin warm/dry/pink. Vital Signs: 06:56 BP 130 / 91; Pulse 81; Resp 17; Temp 98(O); Pulse Ox 99% on R/A; rs5 08:20 BP 122 / 88; Pulse 77; Resp 17; Pulse Ox 99% on R/A; rs5 ED Course: 06:51 Patient arrived in ED. [id number] 07:00 Patient has correct armband on for positive identification. Placed in gown. Bed in low rs5 position. Call light in reach. Side rails up X2. 07:00 No provider procedures requiring assistance completed. rs5 07:01 Adalberto Xavier MD is Attending Physician. rn 07:03 Girish Dillon RN is Primary Nurse. rs5 07:16 Triage completed. rs5 07:54 XRAY Wrist RIGHT 3 view In Process Unspecified. EDMS 08:30 Provided Education on: discharge instructions . rs5 08:30 Patient did not have IV access during this emergency room visit. rs5 Administered Medications: 07:16 Drug: Ibuprofen PO 800 mg PO once Route: PO; rs5 08:22 Follow up: Response: No adverse reaction rs5 07:16 Drug: HYDROcodone-acetaminophen PO 5 mg-325 mg 1 tabs PO once Route: PO; rs5 08:22 Follow up: Response: No adverse reaction; Pain is decreased rs5 Medication: 07:47 VIS not applicable for this client. rs5 Outcome: 08:20 Discharge ordered by . rn 08:30 Discharged to home ambulatory, with family, rs5 08:30 Condition: stable rs5 08:30 Discharge instructions given to patient, family, Instructed on discharge instructions, follow up and referral plans. Demonstrated understanding of instructions, follow-up care, 08:33 Patient left the ED. rs5 Signatures: Dispatcher [employer] EDAdalberto Toney MD MD rn Jeffries, Jennifer jj6 Sotelo, Ricky, RN RN rs5 Corrections: (The following items were deleted from the chart) 07:16 07:16 PSHx: Unable to Obtain; rs5 rs5
[2024-07-12 09:27] VITALS: TEMP 98; O2SAT 99
[2024-07-12 09:28] VITALS: BP 122/88
== END 2024-07-12 08:33 | disposition home or self-care (01) ==
LOC: ER 06:51
DX: S60.211A Contusion of right wrist, initial encounter (principal)
CPT/HCPCS: 99283